=== PATIENT | female | born 1935 | race Caucasian/White ===

== ENCOUNTER 2021-03-12 11:05 | Inpatient (IN) | payer MEDICARE, OTHER ==
[~2021-03-12] VITALS: Ht 157.5 cm; Wt 49.9 kg
[2021-03-12] MEDS ORDERED: INSU100V27 SQ (11:26)
[2021-03-12] MEDS ORDERED: LEVE500T9 GT (11:26)
[2021-03-12] MEDS ORDERED: NUT.237L30 GT (11:26)
[2021-03-12] MEDS ORDERED: ACET-868 GT ×2 (11:26)
[2021-03-12] MEDS ORDERED: BRIM5DRO2 EACHEYE (11:26)
[2021-03-12] MEDS ORDERED: MAGN400O6 GT (11:26)
[2021-03-12] MEDS ORDERED: LATA5DRO EACHEYE (11:26)
[2021-03-12] MEDS ORDERED: AMLO-212 GT (11:26)
[2021-03-12] MEDS ORDERED: LACT1CAP72 GT (11:26)
[2021-03-12] MEDS ORDERED: BISA10SU11 RC (11:26)
[2021-03-12] MEDS ORDERED: LEVO75TA7 GT (11:26)
[2021-03-12] MEDS ORDERED: LACO10SO GT (11:26)
[2021-03-12] MEDS ORDERED: IV LR 1000 ML 1,000 ML BAG IV ONE (11:30)
[2021-03-12 11:55] LABS: BILIRUBIN,URINE Negative (NEGATIVE); COLOR,URINE YELLOW (YELLOW); LEUKOCYTE ESTERASE ,URINE Small (NEGATIVE); NITRITE, URINE Positive (NEGATIVE); PROTEIN,URINE Negative (NEGATIVE); UGLUCOSE Negative (NEGATIVE); UROBILINOGEN,URINE 0.2 EU/dL (0.2)
[2021-03-12 11:55] LABS: BASOPHILS # (AUTO) 0.2 K/uL (0.0-0.2); BASOPHILS % (AUTO) 1.2 % (0.0-2.0); EOSINOPHILS % (AUTO) 5.1 % (0.0-6.0); HEMATOCRIT 36 % (33-45); HEMOGLOBIN 11.2 g/dL (11.5-14.8); LYMPHOCYTES # (AUTO) 5.8 K/uL (0.8-4.8); LYMPHOCYTES % (AUTO) 43.6 % (20.0-44.0); MEAN CORPUSCULAR HGB CONC 31 g/dl (31.0-36.0); MEAN CORPUSCULAR VOLUME 84 fL (82-100); MONOCYTES # (AUTO) 1.1 K/uL (0.1-1.30); MONOCYTES % (AUTO) 8.3 % (2.0-12.0); NEUTROPHILS # (AUTO) 5.6 K/uL (1.8-8.9); NEUTROPHILS % (AUTO) 41.8 % (43.0-81.0); PLATELET COUNT (AUTO) 847 K/uL (150-450); RED BLOOD CELL COUNT(AUTO) 4.32 MIL/uL (4.0-5.2); WHITE BLOOD COUNT (AUTO) 13.4 K/uL (4.3-11.0)
--- NOTE | 2021-03-12 11:56 | NUR ---
86 years old female presents to er by ambulance altered, hypotensive, placed on laboratory monitor, continuous pulse, 2 liters oxygen vnc, ivf infusing for hypotension, ekg complted, lab drawn result pending, chest x-ray done.
[2021-03-12 12:03] LABS: CALCIUM, SERUM 8.8 mg/dL (8.5-10.1); CARBON DIOXIDE 31 mmol/L (21-32); CHLORIDE 101 mmol/L (98-107); CREATININE 0.6 mg/dL (0.6-1.3); GLUCOSE 154 mg/dL (74-106); POTASSIUM 5.1 mmol/L (3.5-5.1); SODIUM SERUM 138 mmol/L (136-145); UREA NITROGEN, BLOOD 23 mg/dL (7-18)
[2021-03-12 12:16] LABS: ALANINE AMINOTRANSFERASE 23 U/L (12-78); ALBUMIN 2.7 g/dL (3.4-5.0); ALKALINE PHOSPHATASE 67 U/L (46-116); ASPARTATE AMINOTRANSFERASE 29 U/L (15-37); BILIRUBIN,DIRECT 0.1 mg/dL (0.0-0.2); BILIRUBIN,TOTAL 0.2 mg/dL (0.2-1.0)
[2021-03-12 12:33] LABS: BACTERIA,URINE Many /HPF (None Seen); RBC,URINE 0-2 /HPF (0-2); SQUAMOUS EPITHELIAL CELL,UR Few /HPF (None Seen)
--- NOTE | 2021-03-12 12:42 | NUR ---
[facility] PAGED. AWAITING HOSPITALIST CALL BACK.
--- NOTE | 2021-03-12 12:45 | NUR ---
CALLED NURSING SUPP FOR TELE BED.
--- NOTE | 2021-03-12 12:56 | NUR ---
swab collected for henderson virus and send to lab.
[2021-03-12] MEDS ORDERED: CEFTRIAXONE 1 G VIAL ONE (12:58)
[2021-03-12] MEDS ORDERED: IV NS 0.9% 500 ML BAG IV ONE (13:00)
[2021-03-12] MEDS ORDERED: CEFTRIAXONE 1GM BAG (ER ONLY) 1 GM/50 ML PIGGYBACK IV ONE (13:00)
--- NOTE | 2021-03-12 13:08 | NUR ---
ADMISSION PACKET SUBMITTED.
--- NOTE | 2021-03-12 13:22 | NUR ---
MD TO MD IN PROGRESS.
[2021-03-12] MEDS ORDERED: ACETAMINOPHEN 325 MG TABLET PO PRN ×2 (13:30)
[2021-03-12] MEDS ORDERED: MAG HYDROX/AL HYDROX/SIMETH 30 ML UDC PO PRN (13:30)
[2021-03-12] MEDS ORDERED: Z GUARD REMEDY 2 OZ OINT TP PRN (13:30)
[2021-03-12] MEDS ORDERED: BISACODYL SUPP (10 MG) 10 MG/SUPP.RECT SUPP.RECT RC PRN (13:30)
[2021-03-12] MEDS ORDERED: MAGNESIUM HYDROXIDE 30 ML UDC GT PRN (13:30)
[2021-03-12] MEDS ORDERED: ONDANSETRON HCL/PF 4 MG/2 ML VIAL IVP PRN (13:30)
[2021-03-12] MEDS ORDERED: MAGNESIUM HYDROXIDE 30 ML UDC PO PRN (13:30)
--- NOTE | 2021-03-12 13:50 | NUR ---
MRSA swab done, patient stable for transfer to unit room 101 report given to nurse Patricia all questions answered.
[2021-03-12 14:16] LABS: THYROID STIMULATING HORMONE 3.516 uIU/mL (0.358-3.74)
[2021-03-12 14:29] LABS: BAND % (MANUAL) 4 % (0.0-5.0); EOSINOPHILS % (MANUAL) 2 % (0-4); LYMPHOCYTES % (MANUAL) 34 % (16-48); MONOCYTES % (MANUAL) 18 % (0-11.0); NEUTROPHILS % (MANUAL) 42 (42-76)
[2021-03-12 14:43] VITALS: BP 129/76
--- NOTE | 2021-03-12 14:50 | NUR ---
FIELD ORGANIZER NOTE RECEIVED PATIENT FROM WE WITH DX UTI WITH METABOLIC ENCEPHALOPATHY,0N2L NC NO SOB NOTED AT THIS TIME, VERY CONFUSION , RT FA AND LT HAND HL INTACT , ,PLACED ON TELE MONITOR , SR HT 75, BED IN LOWEST AND LOCKED POSITION BELONGING CHECKED , VS TAKEN , WILL CONT TO MONITOR, ADMITTED UNDER CARE DR GONZALEZ
[2021-03-12 16:00] VITALS: BP 130/72
[2021-03-12] MEDS: IV NS 0.9% 1,000 ML IV PRN (16:00)
[2021-03-12] MEDS: LACTOBACILLUS RHAMNOSUS GG 1 EACH CAP.SPRINK GT SCH (16:21)
[2021-03-12] MEDS: TIMOLOL 0.5% SOLN OPHTH 5 ML BOTTLE EACHEYE SCH (16:21)
[2021-03-12] MEDS: BRIMONIDINE TARTRATE OPHT SOLN 5 ML BOTTLE EACHEYE SCH (16:21)
[2021-03-12] MEDS: LEVETIRACETAM SOL (5 ML) 100 MG/ML UDC GT SCH (16:21)
[2021-03-12] MEDS ORDERED: GLUCERNA 1.5 1,000 ML BOTTLE NG PRN (16:30)
[2021-03-12] MEDS ORDERED: GLUCERNA 1.2 1,000 ML BOTTLE NG PRN (17:00)
--- NOTE | 2021-03-12 17:30 | NUR ---
RUG CLEANING SUPERVISOR NOTE DR MARY NEUROLOGIST SEEN ,PATENT WITH ORDER EGG AND MRI , ORDER CARRIED OUT
--- NOTE | 2021-03-12 18:05 | NUR ---
APARTMENT MAINTENANCE NOTE EGG DONE ORDERED CALLED DAUGHTER FOR CONSENT MRI
--- NOTE | 2021-03-12 18:30 | NUR ---
AUTOMATION CONTROL INTEGRATOR NOTE ALL NEEDS ATTENDED, WITH G TUBE FEEDING ORDERED , ON IVF ORDERED, ALSO CALLED TO DAUGHTER MRI CONSENT OBTAINED , CALLLI LIGHT WITHIN REACH , WILL MONITOR CLOSELY
[2021-03-12 20:00] VITALS: BP 151/78
[2021-03-12] MEDS ORDERED: LACOSAMIDE 50 MG TABLET ONE (20:48)
[2021-03-12] MEDS: LACOSAMIDE ORAL SOLN 50 MG/5 ML UDC GT SCH (20:57)
[2021-03-12] MEDS: LATANOPROST EYE DROP 0.005% 2.5 ML BOTTLE EACHEYE SCH (21:01)
[2021-03-13] MEDS ORDERED: LACOSAMIDE 50 MG TABLET GT ONE
[2021-03-13 04:00] VITALS: BP 143/83
[2021-03-13] MEDS: IV NS 0.9% 1,000 ML IV PRN (07:22)
[2021-03-13] MEDS: LACTOBACILLUS RHAMNOSUS GG 1 EACH CAP.SPRINK GT SCH ×2 (08:46→18:02)
[2021-03-13] MEDS: PANTOPRAZOLE 40 MG VIAL IV SCH (08:46)
[2021-03-13] MEDS: BRIMONIDINE TARTRATE OPHT SOLN 5 ML BOTTLE EACHEYE SCH ×2 (08:47→18:04)
[2021-03-13] MEDS: LEVOTHYROXINE SODIUM 75 MCG TABLET GT SCH (08:47)
[2021-03-13] MEDS: TIMOLOL 0.5% SOLN OPHTH 5 ML BOTTLE EACHEYE SCH ×2 (08:47→18:04)
[2021-03-13] MEDS: LEVETIRACETAM SOL (5 ML) 100 MG/ML UDC GT SCH ×2 (08:48→18:02)
[2021-03-13] MEDS: ACETAMINOPHEN 325 MG TABLET PO SCH (09:00)
[2021-03-13] MEDS: LACOSAMIDE ORAL SOLN 50 MG/5 ML UDC GT SCH ×2 (10:39→20:48)
[2021-03-13] MEDS ORDERED: GLUCERNA 1.2 1,000 ML BOTTLE NG SCH (11:00)
--- NOTE | 2021-03-13 13:00 | NUR ---
RN NOTES, DERDERIAN AWARE THAT PT HAS PUTNAM CATH IN INSTEAD OF GT, ASKED IF HE WANTS KUB OR STOP THE FEEDING, AND HE REPLIED WITH ORDER TO CONTINUE THE FEEDING AND DO NOT DO KUB, AND PLACE GI CONSULT WITH DR JALLOH, ORDER NOTED AND CARRIED OUT.
--- NOTE | 2021-03-13 13:30 | NUR ---
RN NOTES, PATIENT TAKEN FOR MRI AT THIS TIME.
--- NOTE | 2021-03-13 14:40 | NUR ---
RN NOTES, PATIENT RETURNED FROM MRI AT THIS TIME IN STABLE CONDITION.
[2021-03-13 16:32] VITALS: BP 146/75
[2021-03-13 17:06] LABS: BASOPHILS # (AUTO) 0.2 K/uL (0.0-0.2); BASOPHILS % (AUTO) 1.1 % (0.0-2.0); EOSINOPHILS % (AUTO) 3.3 % (0.0-6.0); HEMATOCRIT 35 % (33-45); LYMPHOCYTES # (AUTO) 7.4 K/uL (0.8-4.8); LYMPHOCYTES % (AUTO) 49.7 % (20.0-44.0); MEAN CORPUSCULAR HGB CONC 31 g/dl (31.0-36.0); MEAN CORPUSCULAR VOLUME 85 fL (82-100); MONOCYTES # (AUTO) 1.2 K/uL (0.1-1.30); MONOCYTES % (AUTO) 7.8 % (2.0-12.0); NEUTROPHILS # (AUTO) 5.7 K/uL (1.8-8.9); NEUTROPHILS % (AUTO) 38.1 % (43.0-81.0); PLATELET COUNT (AUTO) 845 K/uL (150-450); RED BLOOD CELL COUNT(AUTO) 4.15 MIL/uL (4.0-5.2)
[2021-03-13 17:47] LABS: CHOLESTEROL 146 mg/dL (<200); HDL CHOLESTEROL 50 mg/dL (40-60); LDL 79 mg/dL (0-99); TRIGLYCERIDES 166 mg/dL (30-150)
--- NOTE | 2021-03-13 18:24 | NUR ---
RN NOTES, PATIENT NOTED MULTIPLE TIMES ATTEMPTING TO GET OUT FROM THE BED, ALMOST HAD A FALL PULLING TUBINGS IV, AND O2 TUBING, REDIRECTION PROVIDED, KEPT HER DRY AND CLEAN, DECREASED STIMULI, WITHOUT RESULT, MD REPLIED WITH ORDERS BRENDA BILATERAL RESTRAINS, ORDER NOTED AND CARRIES OUT, OTHERWISE NO CHANGE IN CONDITION, MORE AWAKE THAN YESTERDAY, NO LETHARGY NOTED, GI CONSULT WITH DR SHUBHAM Chirinos TO F/U, PER DAUGHTER BING ASK TO CALL HER AFTER CONSULT, SHE IS VERY CONCERN AND WANTS HER MOM TO BE SAFE IF DR MONTGOMERY CAN DO THE PROCEDURE.
--- NOTE | 2021-03-13 19:30 | NUR ---
RN NOTE PT RECEIVED IN BED. CURRENTLY ON 2L OF O2 VIA NC SHOWING NO S/S OF RESP DISTRESS. PT IS A/OX1. PT ON TELE MONITOR SHOWING NSR. GLUCERNA 1.2 RUNNING. IV LINE ON RIGHT FA GAUGE 20 NOTED. LINE FLUSHED, PATENT, AND INTACT WITH NO S/S OF INFILTRATION. ALL SAFETY MEASURES IMPLEMENTED. CALL LIGHT WITHIN REACH. BED ALARM ON. BED LOCKED AND IN LOWEST POSITION. WILL CONTINUE TO MONITOR AND ASSESS FOR ANY CHANGES.
[2021-03-13 20:00] VITALS: BP 127/82
[2021-03-13 20:17] LABS: ALANINE AMINOTRANSFERASE 26 U/L (12-78); ALBUMIN 2.9 g/dL (3.4-5.0); ALKALINE PHOSPHATASE 71 U/L (46-116); ASPARTATE AMINOTRANSFERASE 41 U/L (15-37); BILIRUBIN,TOTAL 0.1 mg/dL (0.2-1.0); CALCIUM, SERUM 9.1 mg/dL (8.5-10.1); CARBON DIOXIDE 24 mmol/L (21-32); CHLORIDE 104 mmol/L (98-107); CREATININE 0.5 mg/dL (0.6-1.3); GLUCOSE 126 mg/dL (74-106); PHOSPHORUS 3.7 mg/dL (2.5-4.9); POTASSIUM 4.4 mmol/L (3.5-5.1); SODIUM SERUM 141 mmol/L (136-145); TOTAL PROTEIN, SERUM 7.6 g/dL (6.4-8.2); UREA NITROGEN, BLOOD 14 mg/dL (7-18)
[2021-03-13] MEDS: LATANOPROST EYE DROP 0.005% 2.5 ML BOTTLE EACHEYE SCH (21:14)
[2021-03-13] MEDS ORDERED: DOXYCYCLINE HYCLATE (100 MG) 100 MG TABLET PO SCH (21:30)
[2021-03-13] MEDS ORDERED: MUPIROCIN OINT 2% 22 GM TUBE ONE (22:04)
[2021-03-13] MEDS ORDERED: CEFTRIAXONE 1 G VIAL ONE (22:25)
[2021-03-13] MEDS: DOXYCYCLINE HYCLATE (100 MG) 100 MG TABLET GT SCH (22:26)
[2021-03-13] MEDS: MUPIROCIN OINT 2% 22 GM TUBE NS SCH (22:27)
[2021-03-13] MEDS: CEFTRIAXONE 1 G in IV D5W 50 ML IV SCH (22:27)
[2021-03-14] VITALS: BP 154/77
[2021-03-14 04:00] VITALS: BP 146/70
[2021-03-14] MEDS: IV NS 0.9% 1,000 ML IV PRN ×2 (04:46→16:33)
--- NOTE | 2021-03-14 06:51 | NUR ---
RN NOTE NO CHANGES IN PT CONDITION DURING SHIFT. CURRENTLY ON 2L OF O2 VIA NC SHOWING NO S/S OF RESP DISTRESS. PT IS A/OX1. PT ON TELE MONITOR SHOWING NSR. IV LINE ON RIGHT FA #20 NOTED. LINE FLUSHED, PATENT, AND INTACT WITH NO S/S OF INFILTRATION. ALL DUE MEDS GIVEN ORDERED. PT KEPT CLEAN AND COMFORTABLE. ALL SAFETY MEASURES IMPLEMENTED. CALL LIGHT WITHIN REACH. BED ALARM ON. BED LOCKED AND IN LOWEST POSITION. WILL ENDORSE TO MORNING SHIFT RN FOR АЛЕКСАНДР.
--- NOTE | 2021-03-14 07:35 | NUR ---
REGIONAL TANKER TRUCK DRIVER NOTE PATIENT IN BED ,ALERT AWAKE WITH CONFUSION, ON 2L NC NO SOB AT THIS TIME,ON TELE MONITOR SR HR88 AT THIS TIME , WITH G TUBE FEEDING ORDERED AT 25 MLPER HOUR KEEP HOB ELEVATED AT ALL TIME, RT FA HL INTACT ,ON IVF ORDERED, BED IN LOWEST AND LOCKED POSITION, WILL CONT TO MONITOR CLOSELY
[2021-03-14 08:00] VITALS: BP 133/64
[2021-03-14] MEDS: LEVOTHYROXINE SODIUM 75 MCG TABLET GT SCH (08:14)
[2021-03-14] MEDS: PANTOPRAZOLE 40 MG VIAL IV SCH (08:14)
[2021-03-14] MEDS: MUPIROCIN OINT 2% 22 GM TUBE NS SCH ×2 (08:15→20:25)
[2021-03-14] MEDS: ACETAMINOPHEN 325 MG TABLET PO SCH (08:15)
[2021-03-14] MEDS: LEVETIRACETAM SOL (5 ML) 100 MG/ML UDC GT SCH ×2 (08:15→20:11)
[2021-03-14] MEDS: LACTOBACILLUS RHAMNOSUS GG 1 EACH CAP.SPRINK GT SCH ×2 (08:15→16:18)
[2021-03-14] MEDS: DOXYCYCLINE HYCLATE (100 MG) 100 MG TABLET GT SCH ×2 (08:16→20:10)
[2021-03-14] MEDS: LACOSAMIDE ORAL SOLN 50 MG/5 ML UDC GT SCH ×2 (08:36→20:11)
[2021-03-14] MEDS: TIMOLOL 0.5% SOLN OPHTH 5 ML BOTTLE EACHEYE SCH ×2 (09:50→16:19)
[2021-03-14] MEDS: PANTOPRAZOLE 40 MG/PACK PACK GT SCH (09:51)
[2021-03-14] MEDS: BRIMONIDINE TARTRATE OPHT SOLN 5 ML BOTTLE EACHEYE SCH ×2 (09:51→16:19)
--- NOTE | 2021-03-14 11:11 | NUR ---
PRODUCTION LEADER NOTE DR GONZALEZ AT BEDSIDE AWARE OF PUTNAM CATH G TUBE SITE OK TO CHANGE ALSO OK TO HAVE GI CONSULT, WILL CALL DAUGHTER BING
--- NOTE | 2021-03-14 11:30 | NUR ---
COAT JOINER NOTE PUTNAM CATH CHANGED FOR G TUBE SITE PER ORDER DR GONZALEZ ,WILL AWAIT FOR KUB FOR CONFIRMATION OF PLACEMENT , WILL F\U
[2021-03-14] MEDS ORDERED: DIATR MEGLU/DIATRIZOATE SODIUM 30 ML BOTTLE (GASTROGRAPHIN) ONE (11:36)
--- NOTE | 2021-03-14 11:45 | NUR ---
MEDICINE TECH NOTE SPOKE WITH HARO STATED THAT WILL COME TO SEE PATIENT SOON
--- NOTE | 2021-03-14 11:56 | NUR ---
SHADE CLOTH FINISHER NOTE KUB DONE TO VERIFY PUTNAM G TUBE PLACEMENTS WILL F\U
[2021-03-14 12:00] VITALS: BP 118/72
--- NOTE | 2021-03-14 12:59 | NUR ---
STOCK REPAIRER NOTE CALLED TO [facility] RADIOLOGIST SPOKE WITH DR JEFF TO START G TUBE FEEDING D
--- NOTE | 2021-03-14 15:47 | NUR ---
telegraph and teletype operator note make bm x2, keep clean dry , all needs attended
[2021-03-14 16:01] VITALS: BP 167/79
--- NOTE | 2021-03-14 17:42 | NUR ---
TRAFFIC SIGN ERECTION SUPERVISOR NOTE FACE TO FACE ASSESSMENT DONE , PATIENT STILL NEED SOFT RESTRAIN TRYING TO REMOVE ALL LINES , DR GONZALEZ WAS AT BEDSIDE EARLIER AWARE OF PATEIN CONDITION , OK TO RENEW SOFT RESTRAIN , CHECK FOR CIRCULATION Q2 HOUR , SKIN WARM AND DRY , STILL UNABLE TO REMOVE SOFT RESTRAIN, PATIENT VERY CONFUSED ,AT RISK TO REMOVE ALL LINES
--- NOTE | 2021-03-14 18:22 | NUR ---
POWER REACTOR OPERATOR NOTE PATIENT IN BED ,ALL NEEDS ATTENDED ,ON TELE MONITOR SR, STILL ALERT WITH CONFUSION, ON F\C \ G TUBE FEEDING ORDERED AT 35 ML AT THIS TIME , KEEP HOB ELEVATED, STILL AWAITING FOR DR PEREZ GI DOCTOR, ON IVF ORDERED , STILL WITH SOFT RESTRAIN A , BED IN LOWEST AND LOCKED POSITION , NO SOB NOTED AT THIS TIME ,ON 2 L NC , WILL CON TO MONITOR CLOSELY
--- NOTE | 2021-03-14 19:40 | NUR ---
TRAFFIC RATE COMPUTER OPENING NOTES Patient is A&Ox1, not talkative at this time but eyes open spontaneously. Currently fidgeting with bed linens and trying to pull at things. Is on restraints due to pulling out lines/risk for injury. G-tube feeding infusing via boateng catheter in abdomen- patent and flushed. In place per Abd XRay and 2 checks prior to flushing. Pending GI consult for permanent G-tube placement. IV to RFA flushed and patent currently infusing NS at 75cc/hr. NSR on monitor.
[2021-03-14 20:00] VITALS: BP 156/76
[2021-03-14] MEDS: LATANOPROST EYE DROP 0.005% 2.5 ML BOTTLE EACHEYE SCH (22:24)
[2021-03-14] MEDS: CEFTRIAXONE 1 G in IV D5W 50 ML IV SCH (22:25)
[2021-03-15] VITALS: BP 165/85
[2021-03-15 04:00] VITALS: BP 148/71
--- NOTE | 2021-03-15 06:58 | NUR ---
CLEANER ASSISTANT CLOSING NOTES Patient has been A&Ox1. restless and trying to pull at items on bed, fidgeting with bed sheets. On soft wrist restraints. checked q15min for safety. released and sites checked Q2H for ROM. Skin intact. Glucerna with no residual at 0400 so changed to 40cc/hr -tolerating well 50cc is goal. HOB >30 at all times for aspiration precautions. No signs of distress. Tolerating treatment well. All safety measures in place.
[2021-03-15 08:00] VITALS: BP 168/90
[2021-03-15] MEDS: ACETAMINOPHEN 325 MG TABLET PO SCH (08:38)
[2021-03-15] MEDS: LEVETIRACETAM SOL (5 ML) 100 MG/ML UDC GT SCH ×2 (08:38→21:13)
[2021-03-15] MEDS: LACTOBACILLUS RHAMNOSUS GG 1 EACH CAP.SPRINK GT SCH ×2 (08:38→18:11)
[2021-03-15] MEDS: PANTOPRAZOLE 40 MG/PACK PACK GT SCH (08:38)
[2021-03-15] MEDS: LEVOTHYROXINE SODIUM 75 MCG TABLET GT SCH (08:38)
[2021-03-15] MEDS: DOXYCYCLINE HYCLATE (100 MG) 100 MG TABLET GT SCH ×2 (08:38→21:13)
[2021-03-15] MEDS: LACOSAMIDE ORAL SOLN 50 MG/5 ML UDC GT SCH (08:39)
[2021-03-15] MEDS: MUPIROCIN OINT 2% 22 GM TUBE NS SCH ×2 (08:40→21:14)
[2021-03-15] MEDS: BRIMONIDINE TARTRATE OPHT SOLN 5 ML BOTTLE EACHEYE SCH ×2 (08:51→18:12)
[2021-03-15] MEDS: TIMOLOL 0.5% SOLN OPHTH 5 ML BOTTLE EACHEYE SCH ×2 (08:51→18:11)
[2021-03-15 09:09] LABS: BASOPHILS # (AUTO) 0.1 K/uL (0.0-0.2); BASOPHILS % (AUTO) 1.1 % (0.0-2.0); EOSINOPHILS % (AUTO) 5.7 % (0.0-6.0); HEMATOCRIT 36 % (33-45); HEMOGLOBIN 11.1 g/dL (11.5-14.8); LYMPHOCYTES # (AUTO) 4.9 K/uL (0.8-4.8); LYMPHOCYTES % (AUTO) 47.1 % (20.0-44.0); MEAN CORPUSCULAR HGB CONC 31 g/dl (31.0-36.0); MEAN CORPUSCULAR VOLUME 83 fL (82-100); NEUTROPHILS # (AUTO) 3.8 K/uL (1.8-8.9); NEUTROPHILS % (AUTO) 36.1 % (43.0-81.0); PLATELET COUNT (AUTO) 742 K/uL (150-450); RED BLOOD CELL COUNT(AUTO) 4.26 MIL/uL (4.0-5.2); WHITE BLOOD COUNT (AUTO) 10.5 K/uL (4.3-11.0)
[2021-03-15] MEDS: AMOX/CLAVULANATE 875 MG TABLET PO SCH ×2 (11:08→21:13)
[2021-03-15 12:00] VITALS: BP 134/71
--- NOTE | 2021-03-15 13:07 | NUR ---
VOCREMY, PATIENTS' DAUGHTER CALLED ASKING NURSE TO GIVE DR SANTOS PHONE NUMBER [phone] JORGE MADE AWARE AND RECOMMENDED TO GIVE HIS NUMBER [phone] PATIENTS' DAUGHTER TO GIVE TO NEFTALI. ORDERS FOLLOWED AND EPIC NUMBER GIVEN TO DAUGHTER. WILL CONTINUE WITH PLAN OF CARE
--- NOTE | 2021-03-15 14:24 | NUR ---
received orders from dr Wang to print out all medical reports and images. orders carried out. will continue with plan of care
[2021-03-15 16:00] VITALS: BP 156/72
[2021-03-15] MEDS ORDERED: LACOSAMIDE ORAL SOLN 50 MG/5 ML UDC GT SCH (18:00)
--- NOTE | 2021-03-15 19:30 | NUR ---
RN OPENING NOTE PATIENT IN BED, AWAKE. PATIENT A/O X 1. PATIENT'S BREATHING EVEN AND UNLABORED, ON 2 L OF OXYGEN SUPPLEMENTATION. PUTNAM/GTUBE IN PLACE: HAS GLUCERNA 1.2 @40 ML/HR. PATIENT HAS A LFA 22 G WITH NS @75 CC/HR RUNNING. PATIENT IS FOR C/C, AWAITING TRANSPORTATION. SAFETY MEASURES IN PLACE: BED LOCKED AND IN LOWEST POSITION, CALL LIGHT WITHIN REACH, SIDE RAILS UP. WILL MONITOR PATIENT CLOSELY.
--- NOTE | 2021-03-15 19:44 | NUR ---
END OF SHIFT REPORT PATIENT AWAKE IN BED AT THIS TIME. PATIENT REMAINED STABLE THROUGH OUT SHIFT. ALL CARE MEDICATIONS AND TREATMENT ADMINISTERED ANTICIPATED PER ORDER. PUTNAM CATHETER G-TUBE INTACT, CLEAN AND DRY WITH NO RESIDUAL NOTED. IV ACCESS, INTACT, PATENT AND FLUSHING WELL. PATIENT [facility] ALL DISCHARGE INSTRUCTIONS PROVIDED AND PICTURES TAKEN. REPORT GIVEN TO YUKO FRANCO AT [facility]. ASPIRATION AND SAFETY PRECAUTIONS IN PLACE AND MAINTAINED AT ALL TIMES. BED IN LOWEST LOCKED POSITION, SIDE RAILS UPX2, HOB ELEVATED, CALL LIGHT AND TABLE WITHIN REACH. ENDORSED TO YUKO PRINGLE FOR АЛЕКСАНДР
[2021-03-15 20:00] VITALS: BP 137/76
--- NOTE | 2021-03-15 21:20 | NUR ---
RN NOTE PATIENT PICKED UP BY EMS. PATIENT IS GOING TO [facility]. PATIENT BP NOW 156/74. PREVIOUSLY 168/82. PATIENT STABLE AT THIS TIME.2100 MEDS GIVEN. REMAINED A/O X 1. IV ACCESS TAKEN OUT. GTUBE/PUTNAM FLUSHING WELL. EXIT CARE PROVIDED, ALL DOCUMENTS SIGNED.
[2021-03-16] MEDS ORDERED: LACOSAMIDE ORAL SOLN 50 MG/5 ML UDC GT SCH (09:00)
== END 2021-03-15 21:20 | DRG 871 ==
LOC: ER 11:12 → TELE1 13:42 → UNDODISIN 03-13 13:35
PROVIDERS: ADMIT Internal Medicine; ATTEND Internal Medicine
DX: A41.9 Sepsis, unspecified organism (principal); G93.41 Metabolic encephalopathy; N39.0 Urinary tract infection, site not specified; I10 Essential (primary) hypertension; F03.90 Unspecified dementia, unspecified severity, without behavioral disturbance, psychotic disturbance, mood disturbance, and anxiety; E11.9 Type 2 diabetes mellitus without complications; D63.8 Anemia in other chronic diseases classified elsewhere; I25.10 Atherosclerotic heart disease of native coronary artery without angina pectoris; R13.10 Dysphagia, unspecified; Z85.028 Personal history of other malignant neoplasm of stomach; B95.2 Enterococcus as the cause of diseases classified elsewhere; Z20.822 Contact with and (suspected) exposure to COVID-19; Z79.4 Long term (current) use of insulin; Z93.1 Gastrostomy status; Z87.820 Personal history of traumatic brain injury; D32.9 Benign neoplasm of meninges, unspecified; Z22.322 Carrier or suspected carrier of Methicillin resistant Staphylococcus aureus; B96.1 Klebsiella pneumoniae [K. pneumoniae] as the cause of diseases classified elsewhere
CPT/HCPCS: 36415; 70450-TC; 70551-TC; 71045-TC; 74018; 80048-TC; 80053-TC; 80061-TC; 80076-TC; 81001; 82140-TC; 83605-TC; 83735-TC; 83880; 84100-TC; 84443-TC; 84484-TC; 85025-TC; 85730-TC; 86850-TC; 87040-TC; 87081-TC; 87086-TC; 87186-TC; 95819-TC; C9113; G0378; J0696; J1953; J7030; J7060; J7120; Q9963; U0003

== ENCOUNTER 2022-04-02 01:32 | Inpatient (IN) | payer MEDICARE, OTHER ==
[~2022-04-02] VITALS: Ht 160 cm; Wt 49.9 kg
[~2022-04-02 01:32] MED LIST: ACET-868 JT; AMLO-212 JT; BISA10SU11 RC; BRIM5DRO2 EACHEYE; INSU100V27 SQ; LACT1CAP72 JT; LATA5DRO EACHEYE; LEVE500T9 GT; LEVO75TA7 GT; MAGN400O6 JT; NUT.237L30 GT
[2022-04-02] MEDS ORDERED: CEFTRIAXONE 1GM BAG (ER ONLY) 1 GM/50 ML PIGGYBACK IV ONE (02:00)
[2022-04-02] MEDS ORDERED: AZITHROMYCIN 500 MG in IV D5W 250 ML IV ONE (02:00)
--- NOTE | 2022-04-02 02:00 | NUR ---
[facility] & DIAGNOSED WITH PNA YESTERDAY. ARRIVED ON NRB SATTING 91%. PT ALERT X0 AT BASELINE. PLACED ON MOINITOR AND PULSE OX MONITORING.
--- NOTE | 2022-04-02 02:05 | NUR ---
20G IV ESTABLISHED AT . SALINE LOCKED.
[2022-04-02] MEDS ORDERED: CEFTRIAXONE 1 G VIAL ONE (02:08)
--- NOTE | 2022-04-02 02:12 | NUR ---
URINE COLLECTED AND SENT TO LAB
[2022-04-02 02:18] LABS: BASOPHILS % (AUTO) 0.1 % (0.0-2.0); EOSINOPHILS % (AUTO) 0.1 % (0.0-6.0); HEMATOCRIT 34 % (33-45); LYMPHOCYTES # (AUTO) 2.1 K/uL (0.8-4.8); LYMPHOCYTES % (AUTO) 7.5 % (20.0-44.0); MEAN CORPUSCULAR HGB CONC 33 g/dl (31.0-36.0); MEAN CORPUSCULAR VOLUME 93 fL (82-100); NEUTROPHILS # (AUTO) 22.1 K/uL (1.8-8.9); NEUTROPHILS % (AUTO) 81.3 % (43.0-81.0); PLATELET COUNT (AUTO) 674 K/uL (150-450); RED BLOOD CELL COUNT(AUTO) 3.65 MIL/uL (4.0-5.2); WHITE BLOOD COUNT (AUTO) 27.2 K/uL (4.3-11.0)
[2022-04-02 02:31] LABS: CALCIUM, SERUM 8.9 mg/dL (8.5-10.1); CARBON DIOXIDE 33 mmol/L (21-32); CHLORIDE 93 mmol/L (98-107); CREATININE 0.9 mg/dL (0.6-1.3); GLUCOSE 224 mg/dL (74-106); POTASSIUM 4.4 mmol/L (3.5-5.1); SODIUM SERUM 131 mmol/L (136-145); UREA NITROGEN, BLOOD 36 mg/dL (7-18)
--- NOTE | 2022-04-02 02:36 | NUR ---
CLAY COLLECTED AND SENT TO LAB
--- NOTE | 2022-04-02 02:41 | NUR ---
LACTIC ACID 3.1
[2022-04-02 02:43] LABS: ALANINE AMINOTRANSFERASE 14 U/L (12-78); ALBUMIN 1.9 g/dL (3.4-5.0); ALKALINE PHOSPHATASE 61 U/L (46-116); ASPARTATE AMINOTRANSFERASE 27 U/L (15-37); BILIRUBIN,DIRECT 0.2 mg/dL (0.0-0.2); BILIRUBIN,TOTAL 0.3 mg/dL (0.2-1.0); TOTAL PROTEIN, SERUM 7.4 g/dL (6.4-8.2)
[2022-04-02] MEDS ORDERED: AZITHROMYCIN 500 MG VIAL ONE (03:04)
[2022-04-02 03:22] LABS: BILIRUBIN,URINE NEGATIVE (NEGATIVE); COLOR,URINE YELLOW (YELLOW); LEUKOCYTE ESTERASE ,URINE MODERATE (NEGATIVE); NITRITE, URINE NEGATIVE (NEGATIVE); PROTEIN,URINE 30 mg/dl (NEGATIVE); UGLUCOSE 250 MG/DL mg/dL (NEGATIVE)
[2022-04-02] MEDS ORDERED: DEXTROSE 50%-WATER 50 ML DISP.SYRIN IV PRN ×2 (05:00→12:30)
[2022-04-02] MEDS ORDERED: CEFEPIME 1 GM in IV D5W 50 ML IV SCH (05:00)
[2022-04-02] MEDS ORDERED: INSULIN REGULAR, HUMAN 100 UNIT/ML 3 ML VIAL SQ PRN (05:00)
[2022-04-02] MEDS ORDERED: ONDANSETRON HCL/PF 4 MG/2 ML VIAL IVP PRN (05:00)
[2022-04-02] MEDS ORDERED: ZOLPIDEM TARTRATE 5 MG TABLET GT PRN (05:00)
[2022-04-02] MEDS ORDERED: BISACODYL SUPP (10 MG) 10 MG/SUPP.RECT SUPP.RECT RC PRN (05:00)
[2022-04-02] MEDS ORDERED: Z GUARD REMEDY 4 OZ OINT TP PRN (05:00)
[2022-04-02] MEDS ORDERED: MAG HYDROX/AL HYDROX/SIMETH 30 ML UDC GT PRN (05:00)
[2022-04-02] MEDS ORDERED: MAGNESIUM HYDROXIDE 30 ML UDC GT PRN ×2 (05:00)
--- NOTE | 2022-04-02 05:22 | NUR ---
CALLED FOR REPORT RN WILL RETURN CALL
[2022-04-02 05:39] LABS: ABG PCO2 40.3 mmHg (35.0-45.0); ABG PO2 88.8 mmHg (75.0-100.0); COHb 0.3 % (0.5-1.5); MetHb 0.1 % (0.0-1.5); O2Hb 96.5 % (94.0-97.0); SITE, ABG Right Radial; VENT MODE, BG 15 NRB
--- NOTE | 2022-04-02 05:47 | NUR ---
CALLED FOR REPORT. RN WILL CALL BACK
--- NOTE | 2022-04-02 05:56 | NUR ---
CRTICAL LAB: LACTIC ACID 4.4
[2022-04-02 05:57] LABS: THYROID STIMULATING HORMONE 4.617 uIU/mL (0.358-3.74)
[2022-04-02] MEDS ORDERED: ENOXAPARIN SODIUM 40 MG/0.4 ML DISP.SYRIN SQ ONE (05:59)
[2022-04-02] MEDS ORDERED: CEFEPIME 1 GM VIAL ONE (05:59)
[2022-04-02] MEDS: ENOXAPARIN SODIUM 40 MG/0.4 ML DISP.SYRIN SQ SCH (06:05)
--- NOTE | 2022-04-02 06:22 | NUR ---
REPORT GIVEN TO SENG
[2022-04-02 06:35] VITALS: BP 111/64
--- NOTE | 2022-04-02 06:35 | NUR ---
PATIENT WITH GT IN PLACED AND REDNESS NOTED AT SITE.
--- NOTE | 2022-04-02 06:35 | NUR ---
ADMISSION NOTES, RECEIVED 87 YO FEMALE ADMITTED FROM ER DEPARTMENT VIA [facility], RECEIVED PATIENT IN NRM AT 15LPM WITH O2 SATURATION 92%, UNDER MEDICAL SERVICES OF [facility] ENVIRONMENTAL CONSULTANT, WITH ADMITTING DX RESPIRATORY FAILURE/PNA, OPEN EYES TO VERBAL STIMULI, NO SOB/DISTRESS ON NRM, SINUS TACHYCARDIA IN TELE MONITOR WITH HR 110S AT THIS TIME, IV LINE IN RIGHT HAND 20G, PATENT AND INTACT, VS 99%, 111/64, 112, 92%, 24, NOTED SACRAL PRESSURE SORE IN SACRAL AREA AND BILATERAL HEELS REDNESS, PERINEAL REDNESS, AND LEFT LATERAL FOOT REDNESS, ALL SAFETY PRECAUTIONS MAINTAINED, S/R OF BED X2 UP, CALL LIGHT W/ REACH, WILL ENDORSE CONTINUITY OF CARE TO ONCOMING NURSE.
--- NOTE | 2022-04-02 06:36 | NUR ---
PT TRANSPORTED TO ROOM 118-2 ON CARDIAC PER ACLS IN STABLE CONDITION
--- NOTE | 2022-04-02 07:30 | NUR ---
BRADLEY RN NOTE ADMITTED 87 YEARS OLD FEEMALE PT FROM ER WITH THE DX RESP FAILURE, PNA BY ANDREW, PT IS A/O X 0, SLEEPING AROUSABLE TO PAINFUL STIMULATION. NO SOB, NO DISTRESS OR DISCOMFORT NOTED. PT IS NRM 15L O2SAT 97%. PT IS WITH GT SITE IS WITH REDNESS AND ODER. SKIN ASSESSMENT DONE AND PICTURES TAKEN AND PLACED THEM IN THE CHART.. WOUND CONSULT TRIGGERED. RT HAND WITH SL #20 G INTACT AND PATENT,NO S/S OF INFILTRATION NOTED. ALL NEEDS ATTENDED. VSS. CONTINUE TO MONITOR HER.
[2022-04-02 07:41] LABS: BACTERIA,URINE Few /HPF (None Seen); SQUAMOUS EPITHELIAL CELL,UR Few /HPF (None Seen); WBC,URINE 21-50 /HPF (0-3); YEAST,URINE Moderate /HPF (None Seen)
[2022-04-02] MEDS: BLOOD SUGAR DIAGNOSTIC 1 EACH STRIP IN SCH ×5 (07:53→23:59)
[2022-04-02] MEDS: IV NS 0.9% 1,000 ML IV PRN (08:05)
[2022-04-02] MEDS: LEVOTHYROXINE SODIUM 75 MCG TABLET GT SCH (08:27)
[2022-04-02] MEDS ORDERED: CRAN425C6 JT (08:58)
[2022-04-02] MEDS ORDERED: AMIN30LI27 JT (08:58)
[2022-04-02] MEDS ORDERED: LINA5TAB JT (08:58)
[2022-04-02] MEDS ORDERED: DAPA5TAB JT (08:58)
[2022-04-02] MEDS ORDERED: ASCO-352 JT (08:58)
[2022-04-02] MEDS ORDERED: MULT-447 JT (08:58)
[2022-04-02] MEDS ORDERED: OLAN2.5T3 JT (08:58)
[2022-04-02] MEDS ORDERED: HYDR50TA61 JT (08:58)
[2022-04-02] MEDS ORDERED: VALP250S22 JT (08:58)
[2022-04-02] MEDS ORDERED: INSU100V11 SQ (08:58)
[2022-04-02] MEDS: PANTOPRAZOLE 40 MG VIAL IV SCH (11:32)
[2022-04-02] MEDS: AMLODIPINE BESYLATE 5 MG TABLET GT SCH (11:32)
[2022-04-02] MEDS: LACTOBACILLUS RHAMNOSUS GG 1 EACH CAP.SPRINK GT SCH ×2 (11:32→17:57)
[2022-04-02] MEDS: ACETAMINOPHEN 325 MG TABLET PO SCH (11:32)
[2022-04-02] MEDS: LEVETIRACETAM SOL (5 ML) 100 MG/ML UDC GT SCH ×2 (11:33→17:56)
[2022-04-02] MEDS ORDERED: GLUCERNA 1.2 1,000 ML BOTTLE NG PRN ×2 (12:00→19:30)
--- NOTE | 2022-04-02 13:51 | NUR ---
RN NOTE PT SENT FOR HEAD CT W/O CONTRAST. PICKED UP BY KATIE AT 1350.
[2022-04-02] MEDS: ALBUTEROL HALF STRENGTH 1.25 MG/3 ML VIAL.NEB NEB SCH ×2 (14:10→20:04)
[2022-04-02] MEDS: IPRATROPIUM NEB FS 0.5 MG/2.5 ML AMPUL.NEB NEB SCH ×2 (14:10→20:04)
[2022-04-02 14:18] LABS: BAND % (MANUAL) 34 % (0.0-5.0); LYMPHOCYTES % (MANUAL) 7 % (16-48); MONOCYTES % (MANUAL) 20 % (0-11.0); NEUTROPHILS % (MANUAL) 39 (42-76)
--- NOTE | 2022-04-02 16:02 | NUR ---
followup head ct result still pending.
[2022-04-02] MEDS: ASCORBIC ACID 500 MG TABLET GT SCH ×2 (16:44→17:57)
[2022-04-02] MEDS: VALPROIC ACID 250 MG/5 ML UDC JT SCH ×2 (16:44→17:00)
[2022-04-02] MEDS: ACETAMINOPHEN 325 MG TABLET PO PRN (17:34)
[2022-04-02] MEDS: BRIMONIDINE TARTRATE OPHT SOLN 5 ML BOTTLE EACHEYE SCH (17:56)
[2022-04-02] MEDS: TIMOLOL 0.5% SOLN OPHTH 5 ML BOTTLE EACHEYE SCH (17:57)
--- NOTE | 2022-04-02 18:23 | NUR ---
head ct result relayed to chante hernandez no new orders.
--- NOTE | 2022-04-02 19:30 | NUR ---
RN OPENING NOTE RECEIVED REPORT FROM YUKO VALENCIA FOR АЛЕКСАНДР. PT IN BED, SLEEPING. NO S/SX OF ACUTE RESPI DISTRESS NOTED AT THIS TIME. ON SIMPLE MASK AT 8LPM, TOLERATING WELL. NO SOB, BREATHING IS EVEN AND UNLABORED. ON TELE MONITOR SHOWING SR WITH HR IN THE 80s. O2 SAT AT 97%. IV ACCESS NOTED ON R HAND #20g, INTACT, PATENT AND FLUSHES WELL, RUNNING NS @ 75 CC/HR. PT HAS PEG TUBE, NO FEEDING AT THIS TIME. REDNESS ON THE SITE NOTED. ALL SAFETY MEASURES IN PLACE: BED LOCKED IN LOW POSITION, BED ALARM ON, CALL LIGHT WITHIN REACH. WILL CONTINUE TO MONITOR.
[2022-04-02] MEDS: GLUCERNA 1.2 1,000 ML BOTTLE NG PRN (19:58)
[2022-04-02 20:00] VITALS: BP 131/79
[2022-04-02] MEDS: MEROPENEM 1 G in IV NS 0.9% 100 ML IV SCH (20:11)
[2022-04-02] MEDS: LINEZOLID RTU BAG 600 MG in PREMIX 1 EA IV SCH (20:52)
--- NOTE | 2022-04-02 21:11 | NUR ---
BRADLEY RN NOTE PT IN BED A0X0, BREATHING ON 8L SIMPLE MASK, WITH 02 SAT OF 95%. NO S/S OF RESPIRATORY DISTRESS OR SOB. TELE READING SR WITH HR OF 87. IV ACCESS ON RH #20G RUNNING NS AT 75 MLS/HR. GT FEEDING INFUSING WELL,, 0 ML RESIDUAL NOTED. ALL NEEDS ATTENDED.ENDORSE TO PATIENT SUPPORT REPRESENTATIVE NURSE FOR CONTINUE TO CARE.
[2022-04-02] MEDS: LATANOPROST EYE DROP 0.005% 2.5 ML BOTTLE EACHEYE SCH (22:16)
[2022-04-03] VITALS: BP 129/83
[2022-04-03] MEDS: INSULIN REGULAR, HUMAN 100 UNIT/ML 3 ML VIAL SQ PRN ×4 (00:01→23:33)
[2022-04-03] MEDS: BLOOD SUGAR DIAGNOSTIC 1 EACH STRIP IN SCH ×5 (00:34→23:31)
[2022-04-03] MEDS: IV NS 0.9% 1,000 ML IV PRN ×2 (01:09→16:20)
[2022-04-03] MEDS: ALBUTEROL HALF STRENGTH 1.25 MG/3 ML VIAL.NEB NEB SCH ×4 (01:46→19:11)
[2022-04-03] MEDS: IPRATROPIUM NEB FS 0.5 MG/2.5 ML AMPUL.NEB NEB SCH ×4 (01:46→19:11)
[2022-04-03 04:00] VITALS: BP 118/60
--- NOTE | 2022-04-03 05:36 | NUR ---
RN NOTE PT REMAINED STABLE T/O THE NIGHT. ALL VS WNL. NO S/SX OF ACUTE RESPI DISTRESS NOTED. TELE MONITOR READS SR, HR IN 90s. DUE MEDS GIVEN. NEEDS ATTENDED TO. TURNED AND REPOSITIONED. WILL ENDORSE TO [facility] SHIFT NURSE FOR АЛЕКСАНДР.
[2022-04-03] MEDS: LEVOTHYROXINE SODIUM 75 MCG TABLET GT SCH (06:03)
--- NOTE | 2022-04-03 07:12 | NUR ---
TD RN OPENING NOTES: RECEIVED , PT IS A/O X 0, SLEEPING AROUSABLE TO PAINFUL STIMULATION. NO SOB, NO DISTRESS OR DISCOMFORT NOTED. PT IS NRM 15L O2SAT 97%. PT IS WITH GT SITE IS WITH REDNESS AND ODER. NOTED WITH ABDOMINAL BINDER. .. RT HAND WITH SL #20 G INTACT AND PATENT,NO S/S OF INFILTRATION NOTED.ALL SAFETY MEASURES RENDERED, BED IN LOW AND LOCKED POSITION, SIDE RAILS UP, WILL CONTINUE TO MONITOR FOR АЛЕКСАНДР
[2022-04-03 07:22] LABS: BASOPHILS # (AUTO) 0.1 K/uL (0.0-0.2); BASOPHILS % (AUTO) 0.2 % (0.0-2.0); EOSINOPHILS % (AUTO) 0.2 % (0.0-6.0); HEMATOCRIT 36 % (33-45); HEMOGLOBIN 11.4 g/dL (11.5-14.8); LYMPHOCYTES # (AUTO) 4.3 K/uL (0.8-4.8); MEAN CORPUSCULAR HGB CONC 31 g/dl (31.0-36.0); MEAN CORPUSCULAR VOLUME 95 fL (82-100); MONOCYTES # (AUTO) 3.4 K/uL (0.1-1.30); NEUTROPHILS # (AUTO) 34.9 K/uL (1.8-8.9); NEUTROPHILS % (AUTO) 81.6 % (43.0-81.0); PLATELET COUNT (AUTO) 711 K/uL (150-450); RED BLOOD CELL COUNT(AUTO) 3.82 MIL/uL (4.0-5.2)
[2022-04-03 07:44] LABS: WHITE BLOOD COUNT (AUTO) 42.8 K/uL (4.3-11.0)
[2022-04-03 08:00] VITALS: BP 119/71
[2022-04-03 08:03] LABS: CARBON DIOXIDE 31 mmol/L (21-32); CHLORIDE 94 mmol/L (98-107); CREATININE 0.7 mg/dL (0.6-1.3); GLUCOSE 117 mg/dL (74-106); MAGNESIUM 2.3 mg/dL (1.8-2.4); PHOSPHORUS 2.8 mg/dL (2.5-4.9); POTASSIUM 4.7 mmol/L (3.5-5.1); SODIUM SERUM 133 mmol/L (136-145); UREA NITROGEN, BLOOD 31 mg/dL (7-18)
[2022-04-03] MEDS: MEROPENEM 1 G in IV NS 0.9% 100 ML IV SCH ×2 (08:03→20:35)
[2022-04-03] MEDS: VALPROIC ACID 250 MG/5 ML UDC GT SCH ×3 (08:11→16:20)
[2022-04-03] MEDS: ACETAMINOPHEN 325 MG TABLET PO SCH (08:12)
[2022-04-03] MEDS: LACTOBACILLUS RHAMNOSUS GG 1 EACH CAP.SPRINK GT SCH ×2 (08:12→16:20)
[2022-04-03] MEDS: LEVETIRACETAM SOL (5 ML) 100 MG/ML UDC GT SCH ×2 (08:12→16:20)
[2022-04-03] MEDS: PANTOPRAZOLE 40 MG VIAL IV SCH (08:12)
[2022-04-03] MEDS: AMLODIPINE BESYLATE 5 MG TABLET GT SCH (08:12)
[2022-04-03] MEDS: ENOXAPARIN SODIUM 40 MG/0.4 ML DISP.SYRIN SQ SCH (08:14)
--- NOTE | 2022-04-03 08:15 | NUR ---
VELASQUEZ Travis was notified re; WBC went up to 42.8 waiting for returning call back
[2022-04-03] MEDS: PROSOURCE / PROSTAT (PYXIS) 30 ML UDC JT SCH (08:22)
[2022-04-03] MEDS: MULTIVITAMINS,THERAGRAN 1 UDTAB TABLET GT SCH (08:22)
[2022-04-03] MEDS: LINEZOLID RTU BAG 600 MG in PREMIX 1 EA IV SCH ×2 (08:34→21:03)
[2022-04-03] MEDS: TIMOLOL 0.5% SOLN OPHTH 5 ML BOTTLE EACHEYE SCH ×2 (08:36→16:22)
[2022-04-03] MEDS: BRIMONIDINE TARTRATE OPHT SOLN 5 ML BOTTLE EACHEYE SCH ×2 (08:38→16:21)
[2022-04-03] MEDS: PANTOPRAZOLE 40 MG/PACK PACK GT SCH (09:00)
--- NOTE | 2022-04-03 09:17 | NUR ---
RN NOTES: FAMOTIDINE NOT GIVEN VIA GT DOSE WAS GIVEN IV. SPOKE TO EUNICE PHARMACIST MADE AWARE
[2022-04-03 12:00] VITALS: BP 90/48
--- NOTE | 2022-04-03 12:19 | NUR ---
WOUND CARE CONSULT: PT PRESENTS WITH SACRAL DEEP TISSUE INJURY, DEEP TISSUE INJURIES TO LEFT ANKLE AND BILATERAL HEELS WELL REDNESS AROUND G TUBE SITE, ALL PRESENT ON ADMISSION. DR RICARDO AND DR MASCORRO CALLED FOR SURGICAL AND DPM CONSULTS. DISCUSSED SKIN PROTECTION WITH NURSING STAFF. PT IS ON [facility] BED. IN AGREEMENT WITH PLAN OF CARE. Addendum: 04/03/22 at 1221 by FAN CAMACHO WNDNU Amended: Links added.
[2022-04-03] MEDS: MICAFUNGIN SODIUM 100 MG in IV NS 0.9% 100 ML IV SCH (12:30)
[2022-04-03 14:17] LABS: BAND % (MANUAL) 30 % (0.0-5.0); LYMPHOCYTES % (MANUAL) 10 % (16-48); MONOCYTES % (MANUAL) 15 % (0-11.0); NEUTROPHILS % (MANUAL) 45 (42-76)
--- NOTE | 2022-04-03 15:00 | NUR ---
RN NOTES: TITRATED O2 TO 3 LITER VIA NASAL CANULA.O2 SAT 97% NO SOB NOTED WILL MONITOR
[2022-04-03 16:00] VITALS: BP 108/50
[2022-04-03] MEDS: GLUCERNA 1.2 1,000 ML BOTTLE NG PRN (16:20)
--- NOTE | 2022-04-03 17:00 | NUR ---
RN NOTES: PT STILL ON NASAL CANULA O2 SAT 98% ON 3 LITER, NO SOB OR RESPIRATORY DISTRESS NOTED
--- NOTE | 2022-04-03 18:30 | NUR ---
RN NOTES: O2 SAT 78% TITRATED OXYGEN TO 10 LITER VIA SIMPLE MASK , o2 SAT CAME UP TO 95% WILL MONITOR
--- NOTE | 2022-04-03 19:14 | NUR ---
BRADLEY RN CLOSING NOTES: PT IN BED A0X0, BREATHING ON 10L SIMPLE MASK, WITH 02 SAT OF 95%. NO S/S OF RESPIRATORY DISTRESS OR SOB. TELE READING SR WITH HR OF 87. IV ACCESS ON RH #20G RUNNING NS AT 75 MLS/HR. GT FEEDING INFUSING WELL,, 0 ML RESIDUAL NOTED. ALL NEEDS ATTENDED.ENDORSE TO RESTAURANT LINE SERVER NURSE FOR CONTINUE TO CARE.
--- NOTE | 2022-04-03 19:30 | NUR ---
TD RN OPENING NOTE RECEIVED REPORT FROM GATO FOR [facility]. PT IN BED, ASLEEP, AROUSABLE TO PAINFUL STIMULATION. DAUGHTER ON BEDSIDE. IN NO APPARENT DISTRESS NOTED UPON ASSESSMENT. CURRENTLY ON SIMPLE MASK, 8L. TOLERATING WELL. O2 SAT IS 97%. NO SOB, BREATHING IS EVEN AND UNLABORED. ON TELE MONITOR SHOWING SR WITH HR >90. IV ACCESS IS IN R HAND, #20g PATENT AND INTACT, RUNNING NS @ 75 CC/HR. GTF RUNNING GLUCERNA 1.2 @ 55 CC/HR X 24 HRS. <5 ML RESIDUAL NOTED. PUREWICK EXTERNAL CATHETER IN PLACE. DRAINING YELLOW-COLORED URINE. ALL SAFETY MEASURES IN PLACE: BED IN LOW AND LOCKED POSITION, SIDE RAILS UP, BED ALARM ON. CALL LIGHT WITHIN REACH. WILL CONTINUE TO MONITOR PT.
[2022-04-03 20:00] VITALS: BP 115/65
--- NOTE | 2022-04-03 20:10 | NUR ---
YUKO CARMEN 1.2 ORDERED TO RUN AT 55 CC/HR X 20 HRS. GTF STOPPED AT 1999. WILL RESUME AT 0001 LATER IN THE MORNING. Addendum: 04/03/22 at 2216 by BRENDA MONAHAN RN CHECKED PT ORDER HISTORY AND NEW ORDER TO CONTINUE GTF FOR 24 HRS NOTED. RESUMED GTF IMMEDIATELY.
[2022-04-03] MEDS: LATANOPROST EYE DROP 0.005% 2.5 ML BOTTLE EACHEYE SCH (21:07)
[2022-04-03] MEDS: THERAHONEY GEL 1.5 OZ TUBE TP SCH (22:16)
[2022-04-04] VITALS: BP_SYST 136; BP_SYST 141; BP_DIAS 58; BP_DIAS 80
--- NOTE | 2022-04-04 00:15 | NUR ---
RN NOTE PT IS FEBRILE AT 100.6. NO RESPI DISTRESS NOTED. ADMINISTERED TYLENOL ORDERED. GAVE PT COLD BATH TOO. WILL REASSESS IN 30 MINUTES.
[2022-04-04] MEDS: ALBUTEROL HALF STRENGTH 1.25 MG/3 ML VIAL.NEB NEB SCH ×4 (01:14→20:31)
[2022-04-04] MEDS: IPRATROPIUM NEB FS 0.5 MG/2.5 ML AMPUL.NEB NEB SCH ×4 (01:14→20:31)
--- NOTE | 2022-04-04 02:30 | NUR ---
RN NOTE TOOK NEW PICTURES OF PT'S WOUNDS: SACRAL DTI AND GT SITE REDNESS. SOME BRUISING ON BILATERAL ARMS NOTED, NO OPEN WOUNDS OBSERVED.
[2022-04-04 04:00] VITALS: BP 126/61
[2022-04-04] MEDS: BLOOD SUGAR DIAGNOSTIC 1 EACH STRIP IN SCH ×3 (05:44→18:01)
[2022-04-04] MEDS: INSULIN REGULAR, HUMAN 100 UNIT/ML 3 ML VIAL SQ PRN ×3 (05:44→19:57)
[2022-04-04] MEDS: IV NS 0.9% 1,000 ML IV PRN ×2 (06:04→21:12)
[2022-04-04] MEDS: LEVOTHYROXINE SODIUM 75 MCG TABLET GT SCH (06:07)
[2022-04-04 06:28] LABS: BASOPHILS # (AUTO) 0.1 K/uL (0.0-0.2); BASOPHILS % (AUTO) 0.3 % (0.0-2.0); EOSINOPHILS % (AUTO) 0.6 % (0.0-6.0); HEMATOCRIT 37 % (33-45); HEMOGLOBIN 11.6 g/dL (11.5-14.8); LYMPHOCYTES # (AUTO) 4.7 K/uL (0.8-4.8); LYMPHOCYTES % (AUTO) 13.9 % (20.0-44.0); MEAN CORPUSCULAR HGB CONC 32 g/dl (31.0-36.0); MEAN CORPUSCULAR VOLUME 94 fL (82-100); MONOCYTES # (AUTO) 2.9 K/uL (0.1-1.30); MONOCYTES % (AUTO) 8.5 % (2.0-12.0); NEUTROPHILS # (AUTO) 25.8 K/uL (1.8-8.9); NEUTROPHILS % (AUTO) 76.7 % (43.0-81.0); PLATELET COUNT (AUTO) 718 K/uL (150-450)
--- NOTE | 2022-04-04 06:32 | NUR ---
TD RN CLOSING NOTE PT IN BED, SLEEPING, AROUSABLE BY LIGHT PAIN. CURRENTLY ON NC AT 4L, TOLERATING WELL, SATING AT >95%. ALL OTHER VS STABLE. PT NOW AFEBRILE. GTF RUNNING AT 55 CC/H X 24 HRS. UNCLOGGED GT AFTER IT DID NOT FLUSH AND FEEDING MALFUNCTIONED. USED AN DECLOGGER AND FLUSHED WITH WARM WATER. ALL DUE MEDS GIVEN. TURNED AND REPOSITIONED. NEEDS ATTENDED. WILL ENDORSE TO AM SHIFT NURSE FOR АЛЕКСАНДР.
[2022-04-04 06:36] LABS: WHITE BLOOD COUNT (AUTO) 33.7 K/uL (4.3-11.0)
[2022-04-04 06:44] LABS: POTASSIUM 3.8 mmol/L (3.5-5.1)
[2022-04-04 06:45] LABS: CALCIUM, SERUM 8.8 mg/dL (8.5-10.1); CREATININE 0.7 mg/dL (0.6-1.3); MAGNESIUM 2.2 mg/dL (1.8-2.4); PHOSPHORUS 2.3 mg/dL (2.5-4.9)
--- NOTE | 2022-04-04 07:00 | NUR ---
RN NOTE RECEIVED LAB RESULT FOR WBC: 33.7 FROM 42.8
--- NOTE | 2022-04-04 07:00 | NUR ---
RN NOTE RECEIVED PATIENT IN BED RESTING ALERT ORIENTED X0 NON VERBAL, ON 4L OXYGEN VIA NASAL CANNULA O2:96% IV SITE IS ON RIGHT HAND INTACT PATENT ON IV HYDRATION NS 75CC/HR ON G-TUBE GLUCERNA 1.2 G-TUBE FEEDING CHECKED PLACEMENT IN PLACE NO RESIDUAL NOTED,INCONTINENT BLADDER/BOWEL.SAFETY MEASURE IMPLEMENT BED IN LOW POSITION AND LOCKED,HEAD OF THE BED ELEVATED,CONTINUE TO MONITOR.
[2022-04-04 08:00] VITALS: BP 135/67
[2022-04-04] MEDS: MEROPENEM 1 G in IV NS 0.9% 100 ML IV SCH ×2 (09:23→20:59)
[2022-04-04] MEDS: LINEZOLID RTU BAG 600 MG in PREMIX 1 EA IV SCH ×3 (09:24→20:59)
[2022-04-04] MEDS: BRIMONIDINE TARTRATE OPHT SOLN 5 ML BOTTLE EACHEYE SCH ×2 (09:25→17:57)
[2022-04-04] MEDS: TIMOLOL 0.5% SOLN OPHTH 5 ML BOTTLE EACHEYE SCH ×2 (09:25→17:57)
[2022-04-04] MEDS: THERAHONEY GEL 1.5 OZ TUBE TP SCH (09:26)
[2022-04-04] MEDS: VALPROIC ACID 250 MG/5 ML UDC GT SCH ×3 (09:30→17:50)
[2022-04-04] MEDS: LEVETIRACETAM SOL (5 ML) 100 MG/ML UDC GT SCH ×2 (09:30→17:50)
[2022-04-04] MEDS: ACETAMINOPHEN 325 MG TABLET PO SCH (09:31)
[2022-04-04] MEDS: LACTOBACILLUS RHAMNOSUS GG 1 EACH CAP.SPRINK GT SCH ×2 (09:31→17:50)
[2022-04-04] MEDS: MULTIVITAMINS,THERAGRAN 1 UDTAB TABLET GT SCH (09:31)
[2022-04-04] MEDS: ASCORBIC ACID 500 MG TABLET GT SCH (09:31)
[2022-04-04] MEDS: PANTOPRAZOLE 40 MG/PACK PACK GT SCH (09:31)
[2022-04-04] MEDS: AMLODIPINE BESYLATE 5 MG TABLET GT SCH (09:32)
[2022-04-04] MEDS: PROSOURCE / PROSTAT (PYXIS) 30 ML UDC JT SCH (09:34)
[2022-04-04] MEDS: ENOXAPARIN SODIUM 40 MG/0.4 ML DISP.SYRIN SQ SCH (09:39)
--- NOTE | 2022-04-04 10:00 | NUR ---
RN NOTE LACTIC ACID IS 3.0 NOTIFIED RENE MENDOZA,CONTINUE TO MONITOR.
[2022-04-04 10:44] LABS: BAND % (MANUAL) 16 % (0.0-5.0); EOSINOPHILS % (MANUAL) 2 % (0-4); LYMPHOCYTES % (MANUAL) 18 % (16-48); MONOCYTES % (MANUAL) 10 % (0-11.0); NEUTROPHILS % (MANUAL) 54 (42-76)
[2022-04-04 12:00] VITALS: BP 108/53
[2022-04-04] MEDS: MICAFUNGIN SODIUM 100 MG in IV NS 0.9% 100 ML IV SCH (12:13)
[2022-04-04] MEDS ORDERED: NEUTRA PHOS 1 POWD.PACKET NG ONE (13:00)
--- NOTE | 2022-04-04 14:40 | NUR ---
RN NOTE REPORT GIVEN TO TARYN HUNTLEY FOR CONTINUATION OF CARE.
[2022-04-04 16:00] VITALS: BP 139/80
[2022-04-04] MEDS: ACETAMINOPHEN 325 MG TABLET PO PRN ×2 (16:52)
--- NOTE | 2022-04-04 19:10 | NUR ---
RN NOTES RECEIVED REPORT FROM MORNING RN. PATIENT IN BED ASLEEP RESPONDING TO TACTILE STIMULI. WITH OXYGEN INHALATION AT 4 LPM VIA NASAL CANULA TOLERATING WELL SATING 97%. WITH JT PATENT CONNECTED TO CONTINUOS FEEDING 55ML/HR TOLERATING WELL NO GASTRIC RESIDUAL NOTED. WITH PUREWICK CONNECTED TO CONTINUOS SUCTION DRAINING YELLOWISH URINE OUTPUT. ALL SAFETY MEASURES IN PLACE AT ALL TIMES. HOB ELEVATED. CALL LIGHT WITHIN REACH. WILL CLOSELY MONITOR THE PATIENT
[2022-04-04 20:00] VITALS: BP 130/64
--- NOTE | 2022-04-04 20:46 | NUR ---
RN CLOSING NOTE PT IN BED AOX0 AROUSABLE TO DEEP PAIN. CURRENTLY BREATHING ON NC AT 4L, TOLERATING WELL, SATING AT 94%. PT NOW AFEBRILE. GTF RUNNING AT 55 CC/H X 24 HRS. ALL DUE MEDS GIVEN. TURNED AND REPOSITIONED. ALL NEEDS ATTENDED TO. WILL ENDORSE АЛЕКСАНДР TO DOOR FRAME BUILDER NURSE
[2022-04-04] MEDS: LATANOPROST EYE DROP 0.005% 2.5 ML BOTTLE EACHEYE SCH (21:02)
[2022-04-05] VITALS: BP 141/80
[2022-04-05] MEDS: BLOOD SUGAR DIAGNOSTIC 1 EACH STRIP IN SCH ×5 (00:22→23:40)
[2022-04-05] MEDS: INSULIN REGULAR, HUMAN 100 UNIT/ML 3 ML VIAL SQ PRN ×5 (00:26→23:43)
[2022-04-05] MEDS: ALBUTEROL HALF STRENGTH 1.25 MG/3 ML VIAL.NEB NEB SCH ×4 (01:00→19:46)
[2022-04-05] MEDS: IPRATROPIUM NEB FS 0.5 MG/2.5 ML AMPUL.NEB NEB SCH ×4 (01:00→19:46)
[2022-04-05] MEDS: GLUCERNA 1.2 1,000 ML BOTTLE GT PRN ×2 (01:12→23:40)
[2022-04-05 04:00] VITALS: BP 135/67
--- NOTE | 2022-04-05 04:02 | NUR ---
RT PT RECVD ON 4 LPM NC, NO SOB OR RESPIRATORY DISTRESS NOTED THROUGHOUT SHIFT. NEB TX GIVEN AND HELLEN WELL.
[2022-04-05] MEDS: ACETAMINOPHEN 325 MG TABLET PO PRN ×2 (04:08→14:00)
[2022-04-05 06:24] LABS: BASOPHILS # (AUTO) 0.1 K/uL (0.0-0.2); BASOPHILS % (AUTO) 0.3 % (0.0-2.0); EOSINOPHILS % (AUTO) 0.6 % (0.0-6.0); HEMATOCRIT 44 % (33-45); HEMOGLOBIN 13.5 g/dL (11.5-14.8); LYMPHOCYTES # (AUTO) 4.8 K/uL (0.8-4.8); LYMPHOCYTES % (AUTO) 23.6 % (20.0-44.0); MEAN CORPUSCULAR HGB CONC 31 g/dl (31.0-36.0); MEAN CORPUSCULAR VOLUME 97 fL (82-100); MONOCYTES # (AUTO) 2.5 K/uL (0.1-1.30); MONOCYTES % (AUTO) 12.1 % (2.0-12.0); NEUTROPHILS # (AUTO) 12.9 K/uL (1.8-8.9); NEUTROPHILS % (AUTO) 63.4 % (43.0-81.0); PLATELET COUNT (AUTO) 402 K/uL (150-450); RED BLOOD CELL COUNT(AUTO) 4.51 MIL/uL (4.0-5.2); WHITE BLOOD COUNT (AUTO) 20.4 K/uL (4.3-11.0)
--- NOTE | 2022-04-05 06:44 | NUR ---
RN NOTE PATIENT STILL ON OXYGEN INHALATION AT 4LPM, NO SOB NO DSITRESS NOTED AT THIS TIME. PATIENT WITH EPISODE OF INCREASE TEMPERATURE 101.3 COOLING MEASURES AND ACETAMINOPHEN GIVEN. TEMP WENT DOEN TO 98.6. ALL SAFETY MEASURES IN PLACE AT ALL TIMES. REPOSITION PATIENT Q2 HOB ELEVATED. WILL ENDORSED TO MORNING SHIFT FOR АЛЕКСАНДР.
[2022-04-05 06:54] LABS: CALCIUM, SERUM 8.6 mg/dL (8.5-10.1); CREATININE 0.6 mg/dL (0.6-1.3); MAGNESIUM 1.9 mg/dL (1.8-2.4); PHOSPHORUS 2.3 mg/dL (2.5-4.9); POTASSIUM 3.8 mmol/L (3.5-5.1)
--- NOTE | 2022-04-05 07:05 | NUR ---
RN OPENING NOTES RECEIVED PATIENT IN BED ASLEEP RESPONDING TO TACTILE STIMULI. WITH OXYGEN INHALATION AT 4 LPM VIA NASAL CANULA TOLERATING WELL SATING 97%. WITH JT PATENT CONNECTED TO CONTINUOS FEEDING 55ML/HR TOLERATING WELL. NO GASTRIC RESIDUAL NOTED. PUREWICK CONNECTED TO CONTINUOS SUCTION DRAINING YELLOWISH URINE OUTPUT. ALL SAFETY MEASURES IN PLACE, BED LOCKED IN LOWEST POSITION. AT ALL TIMES. HOB ELEVATED. CALL LIGHT WITHIN REACH. WILL CLOSELY MONITOR THE PATIENT
[2022-04-05] MEDS: LEVOTHYROXINE SODIUM 75 MCG TABLET GT SCH (07:30)
[2022-04-05 08:00] VITALS: BP 134/65
[2022-04-05] MEDS: MEROPENEM 1 G in IV NS 0.9% 100 ML IV SCH ×2 (09:23→20:36)
[2022-04-05] MEDS: LINEZOLID RTU BAG 600 MG in PREMIX 1 EA IV SCH ×2 (09:23→20:36)
[2022-04-05] MEDS: ENOXAPARIN SODIUM 40 MG/0.4 ML DISP.SYRIN SQ SCH (10:32)
[2022-04-05] MEDS: PROSOURCE / PROSTAT (PYXIS) 30 ML UDC JT SCH ×2 (10:34→17:00)
[2022-04-05] MEDS: MULTIVITAMINS,THERAGRAN 1 UDTAB TABLET GT SCH (10:37)
[2022-04-05] MEDS: ACETAMINOPHEN 325 MG TABLET PO SCH (10:37)
[2022-04-05] MEDS: LEVETIRACETAM SOL (5 ML) 100 MG/ML UDC GT SCH ×2 (10:37→17:47)
[2022-04-05] MEDS: PANTOPRAZOLE 40 MG/PACK PACK GT SCH (10:37)
[2022-04-05] MEDS: AMLODIPINE BESYLATE 5 MG TABLET GT SCH (10:38)
[2022-04-05] MEDS: ASCORBIC ACID 500 MG TABLET GT SCH (10:38)
[2022-04-05] MEDS: LACTOBACILLUS RHAMNOSUS GG 1 EACH CAP.SPRINK GT SCH ×2 (10:38→17:47)
[2022-04-05] MEDS: VALPROIC ACID 250 MG/5 ML UDC GT SCH ×3 (10:46→17:47)
[2022-04-05] MEDS ORDERED: NEUTRA PHOS 1 POWD.PACKET GT ONE (11:00)
[2022-04-05] MEDS: THERAHONEY GEL 1.5 OZ TUBE TP SCH (11:37)
[2022-04-05] MEDS: TIMOLOL 0.5% SOLN OPHTH 5 ML BOTTLE EACHEYE SCH ×2 (11:38→18:01)
[2022-04-05] MEDS: BRIMONIDINE TARTRATE OPHT SOLN 5 ML BOTTLE EACHEYE SCH ×2 (11:38→18:00)
[2022-04-05 12:00] VITALS: BP 150/71
[2022-04-05] MEDS: MICAFUNGIN SODIUM 100 MG in IV NS 0.9% 100 ML IV SCH (13:50)
[2022-04-05] MEDS: IV NS 0.9% 1,000 ML IV PRN (14:57)
[2022-04-05 16:00] VITALS: BP 153/76
--- NOTE | 2022-04-05 19:38 | NUR ---
CORPORATE COMMUNICATIONS MANAGER OPENING NOTES RECEIVED PATIENT IN BED ASLEEP RESPONDING TO TACTILE STIMULI. WITH OXYGEN INHALATION AT 2 LPM VIA NASAL CANULA TOLERATING WELL SATING 97%. WITH JT PATENT CONNECTED TO CONTINUOS FEEDING GLUCERNA AT 55ML/HR TOLERATING WELL, NO GASTRIC RESIDUAL NOTED. IV ACCESS AT PAO ML RUNNING NS AT 75 ML/HR, WITH PUTNAM CATHETER DRAINING TO YELLOWISH URINE OUTPUT. ALL SAFETY MEASURES IN PLACE AT ALL TIMES. HOB ELEVATED. CALL LIGHT WITHIN REACH. BED IN LOWEST AND LOCKED POSITION, WILL CLOSELY MONITOR THROUGHOUT THE SHIFT.
[2022-04-05 20:00] VITALS: BP 130/67
--- NOTE | 2022-04-05 20:08 | NUR ---
RT PT RECVD ON 2 LPM HUMIDIFIED O2 VIA NC, NO SOB OR RESPIRATORY DISTRESS NOTED AT THIS TIME. NEB TX GIVEN AND NO ADVERSE REACTION NOTED AT THIS TIME.
--- NOTE | 2022-04-05 20:17 | NUR ---
DIVEMASTER CLOSING NOTES PATIENT IN BED ASLEEP AOX1, RESPONSIVE TO DEEP PAIN. BREATHING ON 2 LPM VIA NASAL CANULA TOLERATING WELL SATING 97%. PT HAS JT PATENT CONNECTED TO CONTINUOS FEEDING GLUCERNA AT 55ML/HR TOLERATING WELL, NO GASTRIC RESIDUAL NOTED. IV ACCESS AT PAO ML RUNNING NS AT 75 ML/HR, WITH PUTNAM CATHETER DRAINING TO YELLOWISH URINE OUTPUT. ALL SAFETY MEASURES IN PLACE AT ALL TIMES. HOB ELEVATED. CALL LIGHT WITHIN REACH. BED IN LOWEST AND LOCKED POSITION, WILL ENDORSE CONTINUITY OF CARE TO NURSE CASE MANAGEMENT NURSE.
[2022-04-05] MEDS: LATANOPROST EYE DROP 0.005% 2.5 ML BOTTLE EACHEYE SCH (22:05)
--- NOTE | 2022-04-05 23:59 | NUR ---
RN NOTE BS CHECKED AT 170 MG/DL, 3 UNITS OF INSULIN GIVEN PER SLIDING SCALE. WILL CONT TO MONITOR.
[2022-04-06] VITALS: BP 136/70
[2022-04-06] MEDS: IPRATROPIUM NEB FS 0.5 MG/2.5 ML AMPUL.NEB NEB SCH ×4 (01:14→20:23)
[2022-04-06] MEDS: ALBUTEROL HALF STRENGTH 1.25 MG/3 ML VIAL.NEB NEB SCH ×4 (01:14→20:23)
--- NOTE | 2022-04-06 02:00 | NUR ---
SPUTUM SAMPLE OBTAINED. LEFT SAMPLE IN FRIDGE FOR LAB. RN INFORMED.
[2022-04-06 04:00] VITALS: BP 155/71
[2022-04-06] MEDS: LEVOTHYROXINE SODIUM 75 MCG TABLET GT SCH (06:05)
[2022-04-06] MEDS: BLOOD SUGAR DIAGNOSTIC 1 EACH STRIP IN SCH ×3 (06:05→17:38)
[2022-04-06] MEDS: INSULIN REGULAR, HUMAN 100 UNIT/ML 3 ML VIAL SQ PRN ×3 (06:08→17:39)
[2022-04-06] MEDS: IV NS 0.9% 1,000 ML IV PRN (06:11)
--- NOTE | 2022-04-06 06:26 | NUR ---
RN NOTE BS CHECKED AT 172 MG/DL, 3 UNITS OF INSULIN GIVEN PER SLIDING SCALE. WILL CONT TO MONITOR.
[2022-04-06 06:44] LABS: BASOPHILS % (AUTO) 0.1 % (0.0-2.0); EOSINOPHILS % (AUTO) 0.4 % (0.0-6.0); HEMATOCRIT 33 % (33-45); HEMOGLOBIN 10.7 g/dL (11.5-14.8); LYMPHOCYTES # (AUTO) 3.9 K/uL (0.8-4.8); LYMPHOCYTES % (AUTO) 14.2 % (20.0-44.0); MEAN CORPUSCULAR HGB CONC 33 g/dl (31.0-36.0); MEAN CORPUSCULAR VOLUME 94 fL (82-100); MONOCYTES # (AUTO) 3.6 K/uL (0.1-1.30); MONOCYTES % (AUTO) 12.8 % (2.0-12.0); NEUTROPHILS # (AUTO) 20.2 K/uL (1.8-8.9); NEUTROPHILS % (AUTO) 72.5 % (43.0-81.0); PLATELET COUNT (AUTO) 717 K/uL (150-450); RED BLOOD CELL COUNT(AUTO) 3.52 MIL/uL (4.0-5.2); WHITE BLOOD COUNT (AUTO) 27.8 K/uL (4.3-11.0)
--- NOTE | 2022-04-06 06:54 | NUR ---
AUTO TOP MECHANIC CLOSING NOTES PATIENT IN BED ASLEEP RESPONDING TO TACTILE STIMULI. WITH OXYGEN INHALATION AT 2 LPM VIA NASAL CANULA TOLERATING WELL SATING 97%. WITH JT PATENT CONNECTED TO CONTINUOS FEEDING GLUCERNA AT 55ML/HR TOLERATING WELL, NO GASTRIC RESIDUAL NOTED. IV ACCESS AT PAO ML RUNNING NS AT 75 ML/HR, WITH PUTNAM CATHETER DRAINING TO YELLOWISH URINE OUTPUT. ALL DUE MEDS GIVEN, KEPT DRY AND CLEAN, ALL SAFETY MEASURES IN PLACE AT ALL TIMES. HOB ELEVATED. CALL LIGHT WITHIN REACH. BED IN LOWEST AND LOCKED POSITION, WILL ENDORSE TO AM SHIFT NURSE TO FOR CONTINUITY OF CARE.
[2022-04-06 07:20] LABS: CALCIUM, SERUM 8.5 mg/dL (8.5-10.1); CREATININE 0.6 mg/dL (0.6-1.3); MAGNESIUM 1.7 mg/dL (1.8-2.4); PHOSPHORUS 2.9 mg/dL (2.5-4.9); POTASSIUM 3.7 mmol/L (3.5-5.1)
--- NOTE | 2022-04-06 07:20 | NUR ---
RN OPENING NOTES RECEIVED PATIENT IN BED ASLEEP RESPONDING TO TACTILE STIMULI. WITH OXYGEN INHALATION AT 2 LPM VIA NASAL CANULA TOLERATING WELL SATING 96%. WITH JTUBE PATENT CONNECTED TO CONTINUOS FEEDING GLUCERNA AT 55ML/HR TOLERATING WELL, NO GASTRIC RESIDUAL NOTED. IV ACCESS AT PAO ML RUNNING NS AT 75 ML/HR, WITH PUTNAM CATHETER DRAINING TO YELLOWISH URINE OUTPUT. ALL SAFETY MEASURES IN PLACE AT ALL TIMES. HOB ELEVATED. CALL LIGHT WITHIN REACH. BED IN LOWEST AND LOCKED POSITION.
[2022-04-06 08:00] VITALS: BP 135/65
[2022-04-06] MEDS: MEROPENEM 1 G in IV NS 0.9% 100 ML IV SCH ×2 (08:40→21:15)
[2022-04-06] MEDS: VALPROIC ACID 250 MG/5 ML UDC GT SCH ×3 (08:41→16:11)
[2022-04-06] MEDS: MULTIVITAMINS,THERAGRAN 1 UDTAB TABLET GT SCH (08:41)
[2022-04-06] MEDS: Magnesium 1GM/D5W 100ML PREMIX 100 ML IV SCH ×2 (08:41→11:37)
[2022-04-06] MEDS: LEVETIRACETAM SOL (5 ML) 100 MG/ML UDC GT SCH ×2 (08:41→16:11)
[2022-04-06] MEDS: ACETAMINOPHEN 325 MG TABLET PO SCH (08:41)
[2022-04-06] MEDS: PANTOPRAZOLE 40 MG/PACK PACK GT SCH (08:41)
[2022-04-06] MEDS: ENOXAPARIN SODIUM 40 MG/0.4 ML DISP.SYRIN SQ SCH (08:42)
[2022-04-06] MEDS: AMLODIPINE BESYLATE 5 MG TABLET GT SCH (08:44)
[2022-04-06] MEDS: ASCORBIC ACID 500 MG TABLET GT SCH (08:44)
[2022-04-06] MEDS: PROSOURCE / PROSTAT (PYXIS) 30 ML UDC JT SCH ×2 (08:45→16:11)
[2022-04-06] MEDS: LACTOBACILLUS RHAMNOSUS GG 1 EACH CAP.SPRINK GT SCH ×2 (08:47→16:11)
[2022-04-06] MEDS: BRIMONIDINE TARTRATE OPHT SOLN 5 ML BOTTLE EACHEYE SCH ×2 (08:51→16:12)
[2022-04-06] MEDS: TIMOLOL 0.5% SOLN OPHTH 5 ML BOTTLE EACHEYE SCH ×2 (08:51→16:12)
[2022-04-06] MEDS: THERAHONEY GEL 1.5 OZ TUBE TP SCH (09:06)
[2022-04-06] MEDS: LINEZOLID RTU BAG 600 MG in PREMIX 1 EA IV SCH ×2 (09:27→21:58)
[2022-04-06 12:00] VITALS: BP 119/60
[2022-04-06] MEDS: MICAFUNGIN SODIUM 100 MG in IV NS 0.9% 100 ML IV SCH (13:42)
[2022-04-06 16:00] VITALS: BP 123/59
[2022-04-06] MEDS: GLUCERNA 1.2 1,000 ML BOTTLE GT PRN (16:11)
--- NOTE | 2022-04-06 18:38 | NUR ---
SCOW CAPTAIN CLOSING NOTES PATIENT IN BED ASLEEP RESPONDING TO TACTILE STIMULI. WITH OXYGEN INHALATION AT 2 LPM VIA NASAL CANULA TOLERATING WELL SATING 97%. WITH JT PATENT CONNECTED TO CONTINUOS FEEDING GLUCERNA AT 55ML/HR TOLERATING WELL, NO GASTRIC RESIDUAL NOTED. IV ACCESS AT PAO ML RUNNING NS AT 75 ML/HR, WITH PUTNAM CATHETER DRAINING TO YELLOWISH URINE OUTPUT. ALL DUE MEDS GIVEN, KEPT DRY AND CLEAN, ALL SAFETY MEASURES IN PLACE AT ALL TIMES. HOB ELEVATED. CALL LIGHT WITHIN REACH. BED IN LOWEST AND LOCKED POSITION, WILL ENDORSE TO PM SHIFT NURSE TO FOR CONTINUITY OF CARE.
--- NOTE | 2022-04-06 19:20 | NUR ---
EXCHANGE ENGINEER NOTE: ASLEEP AND RESPONSIVE TO TACTILE STIMULI. HOB ELEVATED AT SEMI-FOWLERS POSITION. 02 NC AT 2LPM SATING AT 98 %. ON TELE MONITOR AND READING OF SINUS RHYTHM 84. LEFT UPPER ARM MIDLINE PATENT WITH NO S/S OF COMPLICATIONS WITH CLEAN DRESSING. IVF ON NS 75ML/HR. JT IN PLACE PATENT WITH GLUCERNA 1.2 AT 55 ML/HR. ASPIRATION PRECAUTIONS. PUTNAM CATHETER WITH YELLOW URINE. REPOSITIONED WITH PILLOWS. BILATERAL HALF SIDE RAILS UP X2. BED IS LOCKED, IN LOW POSITION, EXIT ALARM ON. CALL LIGHT IN REACH.
[2022-04-06 20:00] VITALS: BP 130/68
[2022-04-06] MEDS: LATANOPROST EYE DROP 0.005% 2.5 ML BOTTLE EACHEYE SCH (21:30)
[2022-04-07] VITALS: BP 158/68
[2022-04-07] MEDS: INSULIN REGULAR, HUMAN 100 UNIT/ML 3 ML VIAL SQ PRN ×5 (00:40→23:27)
[2022-04-07] MEDS: BLOOD SUGAR DIAGNOSTIC 1 EACH STRIP IN SCH ×5 (00:42→23:27)
[2022-04-07] MEDS: ACETAMINOPHEN 325 MG TABLET PO PRN ×2 (01:22→20:55)
[2022-04-07] MEDS: IV NS 0.9% 1,000 ML IV PRN (01:30)
[2022-04-07] MEDS: IPRATROPIUM NEB FS 0.5 MG/2.5 ML AMPUL.NEB NEB SCH ×2 (01:40→08:05)
[2022-04-07] MEDS: ALBUTEROL HALF STRENGTH 1.25 MG/3 ML VIAL.NEB NEB SCH ×4 (01:40→20:09)
[2022-04-07 04:00] VITALS: BP 145/67
--- NOTE | 2022-04-07 06:30 | NUR ---
MEDICAL INVESTIGATOR CLOSING NOTE: AWAKE AND RESPONSIVE TO VERBAL STIMULI. HOB ELEVATED AT SEMI-FOWLERS POSITION. 02 NC AT 2LPM SATING AT 97 %. ON TELE MONITOR AND READING OF SINUS RHYTHM 87. LEFT UPPER ARM MIDLINE PATENT WITH NO S/S OF COMPLICATIONS WITH CLEAN DRESSING. IVF ON NS 75ML/HR. JT IN PLACE PATENT WITH GLUCERNA 1.2 AT 55 ML/HR. ASPIRATION PRECAUTIONS. PUTNAM CATHETER WITH YELLOW URINE. TIMES ONE EPISODE OF LOOSE STOOL, AND X ONE EPISODE OF SOFT MEDIUM STOOL, KEPT CLEAN AND COMFORTABLE. WOUND CARE DONE ORDERED FOR SACRAL AREA AND JT STOMAL SITE. TURNED AND REPOSITIONED WITH PILLOWS. BILATERAL HALF SIDE RAILS UP X2. BED IS LOCKED, IN LOW POSITION, EXIT ALARM ON. CALL LIGHT IN REACH.
[2022-04-07 06:43] LABS: BASOPHILS # (AUTO) 0.2 K/uL (0.0-0.2); BASOPHILS % (AUTO) 0.8 % (0.0-2.0); EOSINOPHILS % (AUTO) 0.8 % (0.0-6.0); HEMATOCRIT 31 % (33-45); HEMOGLOBIN 10.2 g/dL (11.5-14.8); LYMPHOCYTES # (AUTO) 6.4 K/uL (0.8-4.8); MEAN CORPUSCULAR HGB CONC 33 g/dl (31.0-36.0); MEAN CORPUSCULAR VOLUME 93 fL (82-100); MONOCYTES # (AUTO) 2.7 K/uL (0.1-1.30); MONOCYTES % (AUTO) 13.4 % (2.0-12.0); NEUTROPHILS # (AUTO) 10.5 K/uL (1.8-8.9); PLATELET COUNT (AUTO) 684 K/uL (150-450); RED BLOOD CELL COUNT(AUTO) 3.38 MIL/uL (4.0-5.2); WHITE BLOOD COUNT (AUTO) 19.9 K/uL (4.3-11.0)
[2022-04-07 07:03] LABS: CALCIUM, SERUM 8.2 mg/dL (8.5-10.1); CARBON DIOXIDE 34 mmol/L (21-32); CHLORIDE 100 mmol/L (98-107); CREATININE 0.6 mg/dL (0.6-1.3); GLUCOSE 161 mg/dL (74-106); PHOSPHORUS 2.7 mg/dL (2.5-4.9); POTASSIUM 3.9 mmol/L (3.5-5.1); SODIUM SERUM 137 mmol/L (136-145); UREA NITROGEN, BLOOD 19 mg/dL (7-18)
--- NOTE | 2022-04-07 07:20 | NUR ---
RN OPENING NOTE RECEIVED PATIENT IN BED ASLEEP. PATIENT ON NASAL CANNULA 2L TOLERATING AT 96%.PATIENT HAS JTUBE.INTACT, PATENT. RUNNING 55 ML/HR TOLERATING WELL. NO RESIDUAL VOLUME NOTED. PATIENT HAS IV ACCESS AT L UA MIDLINE. PUTNAM CATHETHER IN PLACE. YELLOW COLOR DRAINING TO GRAVITY.ALL SAFETY MEASURES IN PLACE AT ALL TIMES.CALL LIGHT WITHIN REACH. BED IN LOWEST AND LOCKED POSITION. BED ALARM ON.SIDE RAILS UP X2
[2022-04-07 08:00] VITALS: BP 153/72
[2022-04-07] MEDS: LEVOTHYROXINE SODIUM 75 MCG TABLET GT SCH (08:33)
[2022-04-07] MEDS: BRIMONIDINE TARTRATE OPHT SOLN 5 ML BOTTLE EACHEYE SCH ×2 (08:33→18:05)
[2022-04-07] MEDS: LEVETIRACETAM SOL (5 ML) 100 MG/ML UDC GT SCH ×2 (08:34→17:16)
[2022-04-07] MEDS: TIMOLOL 0.5% SOLN OPHTH 5 ML BOTTLE EACHEYE SCH ×2 (08:34→18:05)
[2022-04-07] MEDS: VALPROIC ACID 250 MG/5 ML UDC GT SCH ×3 (08:34→17:16)
[2022-04-07] MEDS: LACTOBACILLUS RHAMNOSUS GG 1 EACH CAP.SPRINK GT SCH ×2 (08:34→17:16)
[2022-04-07] MEDS: ACETAMINOPHEN 325 MG TABLET PO SCH (08:35)
[2022-04-07] MEDS: ASCORBIC ACID 500 MG TABLET GT SCH (08:35)
[2022-04-07] MEDS: PANTOPRAZOLE 40 MG/PACK PACK GT SCH (08:35)
[2022-04-07] MEDS: MEROPENEM 1 G in IV NS 0.9% 100 ML IV SCH ×2 (08:35→20:55)
[2022-04-07] MEDS: PROSOURCE / PROSTAT (PYXIS) 30 ML UDC JT SCH ×2 (08:35→17:17)
[2022-04-07] MEDS: MULTIVITAMINS,THERAGRAN 1 UDTAB TABLET GT SCH (08:35)
[2022-04-07] MEDS: ENOXAPARIN SODIUM 40 MG/0.4 ML DISP.SYRIN SQ SCH (08:37)
[2022-04-07] MEDS: AMLODIPINE BESYLATE 5 MG TABLET GT SCH (08:39)
[2022-04-07] MEDS: GLUCERNA 1.2 1,000 ML BOTTLE GT PRN (08:40)
[2022-04-07] MEDS: LINEZOLID RTU BAG 600 MG in PREMIX 1 EA IV SCH ×2 (09:44→22:00)
[2022-04-07] MEDS: THERAHONEY GEL 1.5 OZ TUBE TP SCH (11:59)
[2022-04-07 12:00] VITALS: BP 139/74
[2022-04-07] MEDS: MICAFUNGIN SODIUM 100 MG in IV NS 0.9% 100 ML IV SCH (12:38)
[2022-04-07 16:00] VITALS: BP 159/82
--- NOTE | 2022-04-07 17:00 | NUR ---
rn note patient went for MRI
[2022-04-07 19:23] LABS: BAND % (MANUAL) 9 % (0.0-5.0); LYMPHOCYTES % (MANUAL) 22 % (16-48); MONOCYTES % (MANUAL) 9 % (0-11.0); NEUTROPHILS % (MANUAL) 59 (42-76); REACTIVE LYMPHOCYTES 1 % (0-0)
--- NOTE | 2022-04-07 19:39 | NUR ---
RN OPENING NOTE PATIENT ASLEEP IN BED. NON-VERBAL. NO S/S OF DISTRESS, BREATHING WITHOUT DIFFICULTY ON 2L NC. PAO MIDLINE #18 INTACT AND PATENT W/ NS 75ML/HR. TELE READS ST 112. TF GLUCERNA 55ML/HR. SAFETY MEASURES IN PLACE: BED LOCKED IN PLACE AND AT LOWEST POSITION, RAILS UP X2, CALL COOPER WITHIN REACH. WILL CONTINUE TO MONITOR PATIENT.
--- NOTE | 2022-04-07 19:45 | NUR ---
LABEL FOLDER CLOSING NOTE PATIENT ASLEEP IN BED. OXYGEN SATURATION AT 2 LPM NASAL CANNULA TOLERATING AT ABOVE 96%. JT PATENT AND INTACT. IV PATENT, FLUSHING WELL. GLUCERNA AT 55 ML/HR. IV ACCESS AT PAO ML RUNNING NS AT 75 ML/HR,. PUTNAM CATHETER DRAINING TO YELLOW URINE OUTPUT. ALL DUE MEDS GIVEN, KEPT DRY AND CLEAN, ALL SAFETY MEASURES IN PLACE AT ALL TIMES. HOB ELEVATED. CALL LIGHT WITHIN REACH. BED IN LOWEST AND LOCKED POSITION, ENDORSED TO MAGICIAN HELPER RN
[2022-04-07 20:26] VITALS: BP 145/72
--- NOTE | 2022-04-07 20:38 | NUR ---
RN NOTE PATIENT EXHIBITS FEVER OF 101.0. ICE BAGS PLACED UNDER ARMS BILAT. TYLENOL WILL BE ADMINISTERED. PATIENT OTHERWISE STABLE.
[2022-04-07] MEDS: LATANOPROST EYE DROP 0.005% 2.5 ML BOTTLE EACHEYE SCH (22:03)
[2022-04-08] VITALS: BP 139/67
[2022-04-08] MEDS: ALBUTEROL HALF STRENGTH 1.25 MG/3 ML VIAL.NEB NEB SCH ×4 (01:50→20:27)
[2022-04-08 04:18] VITALS: BP 143/70
[2022-04-08] MEDS: IV NS 0.9% 1,000 ML IV PRN ×2 (04:38→23:58)
[2022-04-08] MEDS: INSULIN REGULAR, HUMAN 100 UNIT/ML 3 ML VIAL SQ PRN ×3 (05:07→18:11)
[2022-04-08] MEDS: BLOOD SUGAR DIAGNOSTIC 1 EACH STRIP IN SCH ×3 (05:08→18:11)
--- NOTE | 2022-04-08 06:36 | NUR ---
RN CLOSING NOTE PATIENT ASLEEP IN BED. NON-VERBAL. NO S/S OF DISTRESS, BREATHING WITHOUT DIFFICULTY ON 2L NC. PAO MIDLINE #18 INTACT AND PATENT W/ NS 75ML/HR. TELE READS SR 87. GLUCERNA 55ML/HR. SAFETY MEASURES IN PLACE: BED LOCKED AND AT LOWEST POSITION, RAILS UP X2, CALL COOPER WITHIN REACH. WILL ENDORSE TO NEXT SHIFT FOR АЛЕКСАНДР.
[2022-04-08 06:56] LABS: BASOPHILS # (AUTO) 0.2 K/uL (0.0-0.2); BASOPHILS % (AUTO) 1.2 % (0.0-2.0); EOSINOPHILS % (AUTO) 1.4 % (0.0-6.0); HEMATOCRIT 36 % (33-45); HEMOGLOBIN 11.5 g/dL (11.5-14.8); LYMPHOCYTES % (AUTO) 29.8 % (20.0-44.0); MEAN CORPUSCULAR HGB CONC 32 g/dl (31.0-36.0); MEAN CORPUSCULAR VOLUME 94 fL (82-100); MONOCYTES # (AUTO) 1.7 K/uL (0.1-1.30); MONOCYTES % (AUTO) 10.4 % (2.0-12.0); NEUTROPHILS # (AUTO) 9.6 K/uL (1.8-8.9); NEUTROPHILS % (AUTO) 57.2 % (43.0-81.0); PLATELET COUNT (AUTO) 718 K/uL (150-450); RED BLOOD CELL COUNT(AUTO) 3.81 MIL/uL (4.0-5.2); WHITE BLOOD COUNT (AUTO) 16.8 K/uL (4.3-11.0)
[2022-04-08 07:09] LABS: CALCIUM, SERUM 8.4 mg/dL (8.5-10.1); CARBON DIOXIDE 35 mmol/L (21-32); CHLORIDE 100 mmol/L (98-107); CREATININE 0.6 mg/dL (0.6-1.3); GLUCOSE 171 mg/dL (74-106); POTASSIUM 3.6 mmol/L (3.5-5.1); SODIUM SERUM 139 mmol/L (136-145); UREA NITROGEN, BLOOD 20 mg/dL (7-18)
--- NOTE | 2022-04-08 07:30 | NUR ---
RN OPENING NOTE PATIENT IS IN BED, AWAKE, EYES OPEN SPONTANEOUSLY, NON VERBAL, WITHDRAWS TO LIGHT PAIN. WITH OXYGEN VIA NASAL CANNULA AT 2L/MIN, WITH O2 SATURATION AT 100%. SINUS RHYTHM ON ECONOMICS PROFESSOR. PUTNAM CATHETER INTACT AND ATTACHED TO URINE BAG DRAINING TO A CLEAR YELLOW URINE. WITH G-TUBE INFUSING WITH GLUCERNA 1.2 AT 55 ML/HR. LEFT UPPER ARM MIDLINE INTACT AND INFUSING WITH NS AT 75 ML/HR. BREATHING UNLABORED AND NOT IN ANY FORM OF DISTRESS. BED IS LOCKED IN LOWEST POSITION, 3 SIDE RAILS UP, CALL LIGHT WITHIN REACH. WILL CONTINUE TO MONITOR THROUGHOUT SHIFT.
[2022-04-08 08:00] VITALS: BP 153/73
[2022-04-08] MEDS: GLUCERNA 1.2 1,000 ML BOTTLE GT PRN (08:05)
[2022-04-08] MEDS: LACTOBACILLUS RHAMNOSUS GG 1 EACH CAP.SPRINK GT SCH ×2 (08:13→18:09)
[2022-04-08] MEDS: ACETAMINOPHEN 325 MG TABLET PO SCH (08:13)
[2022-04-08] MEDS: ASCORBIC ACID 500 MG TABLET GT SCH (08:13)
[2022-04-08] MEDS: PANTOPRAZOLE 40 MG/PACK PACK GT SCH (08:13)
[2022-04-08] MEDS: MULTIVITAMINS,THERAGRAN 1 UDTAB TABLET GT SCH (08:13)
[2022-04-08] MEDS: LEVETIRACETAM SOL (5 ML) 100 MG/ML UDC GT SCH ×2 (08:13→18:08)
[2022-04-08] MEDS: AMLODIPINE BESYLATE 5 MG TABLET GT SCH (08:14)
[2022-04-08] MEDS: LEVOTHYROXINE SODIUM 75 MCG TABLET GT SCH (08:14)
[2022-04-08] MEDS: MEROPENEM 1 G in IV NS 0.9% 100 ML IV SCH ×2 (08:16→20:46)
[2022-04-08] MEDS: VALPROIC ACID 250 MG/5 ML UDC GT SCH ×3 (08:16→18:08)
[2022-04-08] MEDS: BRIMONIDINE TARTRATE OPHT SOLN 5 ML BOTTLE EACHEYE SCH ×2 (08:33→18:08)
[2022-04-08] MEDS: TIMOLOL 0.5% SOLN OPHTH 5 ML BOTTLE EACHEYE SCH ×2 (08:33→18:08)
[2022-04-08] MEDS: PROSOURCE / PROSTAT (PYXIS) 30 ML UDC JT SCH ×2 (08:34→18:09)
[2022-04-08] MEDS: LINEZOLID RTU BAG 600 MG in PREMIX 1 EA IV SCH ×2 (09:38→21:15)
[2022-04-08] MEDS: ENOXAPARIN SODIUM 40 MG/0.4 ML DISP.SYRIN SQ SCH (09:39)
[2022-04-08] MEDS: THERAHONEY GEL 1.5 OZ TUBE TP SCH (09:41)
[2022-04-08 12:00] VITALS: BP 132/55
[2022-04-08] MEDS: MICAFUNGIN SODIUM 100 MG in IV NS 0.9% 100 ML IV SCH (12:10)
[2022-04-08 12:29] LABS: BAND % (MANUAL) 7 % (0.0-5.0); LYMPHOCYTES % (MANUAL) 25 % (16-48); MONOCYTES % (MANUAL) 11 % (0-11.0); NEUTROPHILS % (MANUAL) 57 (42-76)
[2022-04-08 16:00] VITALS: BP 132/57
--- NOTE | 2022-04-08 18:58 | NUR ---
RN CLOSING NOTE PATIENT REMAINED STABLE THROUGHOUT SHIFT. TOLERATES OXYGEN VIA NASAL CANNULA, BREATHING UNLABORED AND NOT IN ANY FORM OF DISTRESS. IV LINE REMAINS INTACT AND PATENT. ALL HOSPITAL SAFETY PRECAUTIONS IN PLACE. WILL ENDORSE TO CONTINUOUS PICKLING LINE PICKLER NURSE.
--- NOTE | 2022-04-08 19:30 | NUR ---
RN OPENING NOTES RECEIVED CARE OF PATIENT FROM AM SHIFT NURSE, PATIENT OPENS EYES, NON-VERBAL, NON-INTERACTIVE. PATIENT IS ON O2 THERAPY VIA NC AT 2 L/MIN, NO SOB NOTED, BILATERAL EQUAL CHEST RISE AND FALL NOTED. PATIENT ON TELE MONITOR READING SR WITH HR OF 86, NO DISTRESS NOTED. PUTNAM CATHETER INTACT AND ATTACHED TO URINE BAG DRAINING CLEAR YELLOW URINE. WITH G-TUBE INFUSING WITH GLUCERNA 1.2 AT 55 ML/HR, NO RESIDUAL NOTED. LEFT UPPER ARM MIDLINE INTACT AND INFUSING WITH NS AT 75 ML/HR. SAFETY MEASURES IMPLEMENTED PER HOSPITAL PROTOCOLS: BED IS LOCKED IN LOWEST POSITION, 3 SIDE RAILS UP, CALL LIGHT WITHIN REACH. WILL CARRY OUT PLAN OF CARE AND CONTINUE TO MONITOR.
[2022-04-08 20:00] VITALS: BP 113/53
--- NOTE | 2022-04-08 20:30 | NUR ---
RN NOTES PATIENT NOTED WITH TEMP. OF 99.3 F, MEASURED VIA AXILLARY ROUTE, COOLING MEASURES INITIATED, NO ACUTE DISTRESS NOTED ON PATIENT. WILL REASSESS ACCORDINGLY.
[2022-04-08] MEDS: LATANOPROST EYE DROP 0.005% 2.5 ML BOTTLE EACHEYE SCH (21:14)
[2022-04-09] VITALS: BP 134/64
[2022-04-09] MEDS: INSULIN REGULAR, HUMAN 100 UNIT/ML 3 ML VIAL SQ PRN ×5 (00:19→23:59)
[2022-04-09] MEDS: BLOOD SUGAR DIAGNOSTIC 1 EACH STRIP IN SCH ×4 (00:20→18:41)
[2022-04-09] MEDS: ALBUTEROL HALF STRENGTH 1.25 MG/3 ML VIAL.NEB NEB SCH ×4 (01:51→20:03)
[2022-04-09 04:00] VITALS: BP 137/66
[2022-04-09 05:53] LABS: BASOPHILS # (AUTO) 0.2 K/uL (0.0-0.2); BASOPHILS % (AUTO) 0.9 % (0.0-2.0); HEMATOCRIT 34 % (33-45); HEMOGLOBIN 11.1 g/dL (11.5-14.8); LYMPHOCYTES # (AUTO) 4.6 K/uL (0.8-4.8); LYMPHOCYTES % (AUTO) 26.2 % (20.0-44.0); MEAN CORPUSCULAR HGB CONC 32 g/dl (31.0-36.0); MEAN CORPUSCULAR VOLUME 93 fL (82-100); MONOCYTES # (AUTO) 1.3 K/uL (0.1-1.30); MONOCYTES % (AUTO) 7.6 % (2.0-12.0); NEUTROPHILS % (AUTO) 63.3 % (43.0-81.0); PLATELET COUNT (AUTO) 696 K/uL (150-450); RED BLOOD CELL COUNT(AUTO) 3.68 MIL/uL (4.0-5.2); WHITE BLOOD COUNT (AUTO) 17.4 K/uL (4.3-11.0)
[2022-04-09 06:22] LABS: CALCIUM, SERUM 8.1 mg/dL (8.5-10.1); CARBON DIOXIDE 35 mmol/L (21-32); CHLORIDE 99 mmol/L (98-107); CREATININE 0.5 mg/dL (0.6-1.3); GLUCOSE 148 mg/dL (74-106); MAGNESIUM 1.9 mg/dL (1.8-2.4); PHOSPHORUS 2.5 mg/dL (2.5-4.9); POTASSIUM 4.2 mmol/L (3.5-5.1); SODIUM SERUM 136 mmol/L (136-145); UREA NITROGEN, BLOOD 18 mg/dL (7-18)
--- NOTE | 2022-04-09 07:27 | NUR ---
RN OPENING NOTE PATIENT IS IN BED, AWAKE, EYES OPEN SPONTANEOUSLY, NON VERBAL, WITHDRAWS TO LIGHT PAIN. WITH OXYGEN VIA NASAL CANNULA AT 2L/MIN. SINUS RHYTHM ON RASPBERRY CHECKER. PUTNAM CATHETER INTACT AND ATTACHED TO URINE BAG DRAINING TO A CLEAR YELLOW URINE. WITH G-TUBE INFUSING WITH GLUCERNA 1.2 AT 55 ML/HR. LEFT UPPER ARM MIDLINE INTACT AND INFUSING WITH NS AT 75 ML/HR. BREATHING UNLABORED AND NOT IN ANY FORM OF DISTRESS. BED IS LOCKED IN LOWEST POSITION, 3 SIDE RAILS UP, CALL LIGHT WITHIN REACH. WILL CONTINUE TO MONITOR THROUGHOUT SHIFT.
[2022-04-09 08:00] VITALS: BP 148/76
[2022-04-09] MEDS: PANTOPRAZOLE 40 MG/PACK PACK GT SCH (08:10)
[2022-04-09] MEDS: MULTIVITAMINS,THERAGRAN 1 UDTAB TABLET GT SCH (08:10)
[2022-04-09] MEDS: LEVETIRACETAM SOL (5 ML) 100 MG/ML UDC GT SCH ×2 (08:10→18:40)
[2022-04-09] MEDS: AMLODIPINE BESYLATE 5 MG TABLET GT SCH (08:11)
[2022-04-09] MEDS: ACETAMINOPHEN 325 MG TABLET PO SCH (08:11)
[2022-04-09] MEDS: LACTOBACILLUS RHAMNOSUS GG 1 EACH CAP.SPRINK GT SCH ×2 (08:12→18:40)
[2022-04-09] MEDS: ASCORBIC ACID 500 MG TABLET GT SCH (08:12)
[2022-04-09] MEDS: PROSOURCE / PROSTAT (PYXIS) 30 ML UDC JT SCH ×2 (08:12→18:41)
[2022-04-09] MEDS: LEVOTHYROXINE SODIUM 75 MCG TABLET GT SCH (08:15)
[2022-04-09] MEDS: MEROPENEM 1 G in IV NS 0.9% 100 ML IV SCH (08:15)
[2022-04-09] MEDS: VALPROIC ACID 250 MG/5 ML UDC GT SCH ×3 (08:15→18:40)
[2022-04-09] MEDS: BRIMONIDINE TARTRATE OPHT SOLN 5 ML BOTTLE EACHEYE SCH ×2 (08:19→18:33)
[2022-04-09] MEDS: THERAHONEY GEL 1.5 OZ TUBE TP SCH (08:19)
[2022-04-09] MEDS: TIMOLOL 0.5% SOLN OPHTH 5 ML BOTTLE EACHEYE SCH ×2 (08:19→18:33)
[2022-04-09] MEDS: GLUCERNA 1.2 1,000 ML BOTTLE GT PRN (08:38)
[2022-04-09] MEDS: LINEZOLID RTU BAG 600 MG in PREMIX 1 EA IV SCH (09:32)
[2022-04-09 12:00] VITALS: BP 114/57
[2022-04-09] MEDS: VANCOMYCIN 1 GM in IV D5W 250ml IV SCH ×2 (12:23→23:52)
[2022-04-09 16:11] VITALS: BP 132/68
[2022-04-09] MEDS: IV NS 0.9% 1,000 ML IV PRN (18:40)
--- NOTE | 2022-04-09 18:51 | NUR ---
RN CLOSING NOTE PATIENT REMAINED STABLE THROUGHOUT SHIFT. PATIENT REMAINS LETHARGIC BUT WITHDRAWS TO PAIN AND OPENS EYES SPONTANEOUSLY. TOLERATES O2 VIA NASAL CANNULA AT 2L/MIN. IV REMAINS INTACT AND PATENT. G-TUBE REMAINS INTACT AND PATENT, NO RESIDUAL NOTED. PUTNAM CATHETER REMAIN INTACT. BREATHING UNLABORED AND NOT IN ANY FORM OF DISTRESS. ALL HOSPITAL SAFETY PRECAUTIONS IN PLACE. WILL ENDORSE TO MAGNETIC DOCTOR NURSE.
--- NOTE | 2022-04-09 19:10 | NUR ---
RN NOTES RECEIVED REPORT FROM MORNING RN. PATIENT IN BED ASLEEP RESPONDING TO TACTILE STIMULI. WITH OXYGEN INHALATION AT 2 LPM VIA NASAL CANULA TOLERATING WELL SATING 97%. WITH IV ACCESS AT L UA MIDLINE PATENT CONNECTED TO IV FLUIDS NS @75CC/HR.WITH JT PATENT CONNECTED TO CONTINUOS FEEDING 55ML/HR TOLERATING WELL NO GASTRIC RESIDUAL NOTED. WITH PUTNAM CATHETER CONNECTED TO URINE BAG DRAINING YELLOWISH URINE OUTPUT ALL SAFETY MEASURES IN PLACE AT ALL TIMES. HOB ELEVATED. CALL LIGHT WITHIN REACH. WILL CLOSELY MONITOR THE PATIENT
[2022-04-09 20:00] VITALS: BP 146/65
[2022-04-09] MEDS: LATANOPROST EYE DROP 0.005% 2.5 ML BOTTLE EACHEYE SCH (21:15)
[2022-04-09] MEDS: ACETAMINOPHEN 325 MG TABLET PO PRN (21:19)
[2022-04-10] VITALS: BP 140/58
[2022-04-10] MEDS: ALBUTEROL HALF STRENGTH 1.25 MG/3 ML VIAL.NEB NEB SCH ×3 (01:22→13:55)
[2022-04-10 04:00] VITALS: BP 140/52
[2022-04-10] MEDS: BLOOD SUGAR DIAGNOSTIC 1 EACH STRIP IN SCH ×3 (05:37→11:17)
[2022-04-10] MEDS: INSULIN REGULAR, HUMAN 100 UNIT/ML 3 ML VIAL SQ PRN (05:39)
[2022-04-10] MEDS: GLUCERNA 1.2 1,000 ML BOTTLE GT PRN (05:42)
--- NOTE | 2022-04-10 06:47 | NUR ---
RN NOTE PATIENT STILL ON OXYGEN INHALATION AT 2LPM, NO SOB NO DISTRESS NOTED AT THIS TIME. PATIENT WITH EPISODE LOW GRADE TEMP 99.5 COOLING MEASURES DONE. TEMP WENT DOWN TO 98.6. PUTNAM CATHETER PATENT CONNECTED TO URINE BAG DRAINING YELLOWISH URINE OUTPUT.ALL SAFETY MEASURES IN PLACE AT ALL TIMES. REPOSITION PATIENT Q2 HOB ELEVATED. WILL ENDORSED TO MORNING SHIFT FOR АЛЕКСАНДР.
[2022-04-10 07:11] LABS: BASOPHILS # (AUTO) 0.1 K/uL (0.0-0.2); BASOPHILS % (AUTO) 0.7 % (0.0-2.0); EOSINOPHILS % (AUTO) 1.5 % (0.0-6.0); HEMATOCRIT 37 % (33-45); LYMPHOCYTES # (AUTO) 4.7 K/uL (0.8-4.8); LYMPHOCYTES % (AUTO) 32.6 % (20.0-44.0); MEAN CORPUSCULAR HGB CONC 32 g/dl (31.0-36.0); MEAN CORPUSCULAR VOLUME 94 fL (82-100); MONOCYTES # (AUTO) 0.9 K/uL (0.1-1.30); MONOCYTES % (AUTO) 6.5 % (2.0-12.0); NEUTROPHILS # (AUTO) 8.5 K/uL (1.8-8.9); NEUTROPHILS % (AUTO) 58.7 % (43.0-81.0); PLATELET COUNT (AUTO) 658 K/uL (150-450); RED BLOOD CELL COUNT(AUTO) 3.98 MIL/uL (4.0-5.2); WHITE BLOOD COUNT (AUTO) 14.5 K/uL (4.3-11.0)
--- NOTE | 2022-04-10 07:33 | NUR ---
RN OPENING NOTES PATIENT NOTED IN BED RESPOPNSIVE, PATIENT IN BED ASLEEP RESPONDING TO TACTILE STIMULI. WITH OXYGEN INHALATION AT 2 LPM VIA NASAL CANULA TOLERATING WELL, NO SOB NOTED, RESPIRATION EVEN AND UNLABORED. IV ACCESS AT L UA MIDLINE PATENT AND INTACT. ON GT FEEDING CONNECTED TO CONTINUOS FEEDING 55ML/HR TOLERATING WELL, NO VOMITING NOTED. WITH PUTNAM CATHETER CONNECTED TO URINE BAG DRAINING YELLOWISH URINE OUTPUT. ON TELE MONITORING WITH SR READING HR= 91. ALL SAFETY MEASURES IN PLACE AT ALL TIMES. HOB ELEVATED. CALL LIGHT WITHIN REACH. WILL CLOSELY MONITOR THE PATIENT.
[2022-04-10 08:00] VITALS: BP 150/77
[2022-04-10] MEDS: LEVOTHYROXINE SODIUM 75 MCG TABLET GT SCH (08:06)
[2022-04-10] MEDS: LEVETIRACETAM SOL (5 ML) 100 MG/ML UDC GT SCH (08:37)
[2022-04-10] MEDS: ACETAMINOPHEN 325 MG TABLET PO SCH (08:38)
[2022-04-10] MEDS: MULTIVITAMINS,THERAGRAN 1 UDTAB TABLET GT SCH (08:38)
[2022-04-10] MEDS: LACTOBACILLUS RHAMNOSUS GG 1 EACH CAP.SPRINK GT SCH (08:38)
[2022-04-10] MEDS: AMLODIPINE BESYLATE 5 MG TABLET GT SCH (08:38)
[2022-04-10] MEDS: ASCORBIC ACID 500 MG TABLET GT SCH (08:38)
[2022-04-10] MEDS: PANTOPRAZOLE 40 MG/PACK PACK GT SCH (08:38)
[2022-04-10] MEDS: VALPROIC ACID 250 MG/5 ML UDC GT SCH ×2 (08:38→12:13)
[2022-04-10] MEDS: PROSOURCE / PROSTAT (PYXIS) 30 ML UDC JT SCH (08:40)
[2022-04-10] MEDS: BRIMONIDINE TARTRATE OPHT SOLN 5 ML BOTTLE EACHEYE SCH (08:57)
[2022-04-10] MEDS: TIMOLOL 0.5% SOLN OPHTH 5 ML BOTTLE EACHEYE SCH (08:57)
[2022-04-10] MEDS: THERAHONEY GEL 1.5 OZ TUBE TP SCH (08:59)
[2022-04-10 09:00] LABS: GLUCOSE 195 mg/dL (74-106)
[2022-04-10] MEDS ORDERED: MUPIROCIN OINT 2% 22 GM TUBE NS SCH (09:00)
[2022-04-10 09:51] LABS: ALANINE AMINOTRANSFERASE 19 U/L (12-78); ALKALINE PHOSPHATASE 69 U/L (46-116); ASPARTATE AMINOTRANSFERASE 47 U/L (15-37); BILIRUBIN,TOTAL 0.2 mg/dL (0.2-1.0); CALCIUM, SERUM 8.1 mg/dL (8.5-10.1); CARBON DIOXIDE 30 mmol/L (21-32); CHLORIDE 95 mmol/L (98-107); CREATININE 0.5 mg/dL (0.6-1.3); PHOSPHORUS 2.9 mg/dL (2.5-4.9); POTASSIUM 4.7 mmol/L (3.5-5.1); SODIUM SERUM 130 mmol/L (136-145); TOTAL PROTEIN, SERUM 6.9 g/dL (6.4-8.2); UREA NITROGEN, BLOOD 16 mg/dL (7-18)
[2022-04-10 09:56] LABS: ALBUMIN 1.4 g/dL (3.4-5.0)
[2022-04-10] MEDS: IV NS 0.9% 1,000 ML IV PRN (10:25)
[2022-04-10] MEDS: VANCOMYCIN 1 GM in IV D5W 250ml IV SCH (11:06)
--- NOTE | 2022-04-10 11:14 | NUR ---
CHECK PROCESSING CLERK NOTE SEEN BY DR CARLOTTA FARLEY T DISCHARGE TO SNF AWARE THAT NA TODAY 130
[2022-04-10 12:00] VITALS: BP 117/61
--- NOTE | 2022-04-10 12:28 | NUR ---
HEALTH PROGRAM MANAGER NOTE COVID TEST DONE ,SENT TO LAB
--- NOTE | 2022-04-10 13:04 | NUR ---
RN NOTES CALLED [facility], SPOKE TO LUIS RN GAVE REPORT FOR DISCHARGE ORDERS, CONFIRMED UNDERSTANDING. CALLED DAUGHTER BING INFORMED THAT UNISAW OPERATOR SEEN THE PATIENT, PER UNISAW OPERATOR THE RIGHT TOE AND FOOT IS OK. PER BING VERY THANKFUL FOR CALLING HER. WILL CONTINUE TO MONITOR PATIENT.
--- NOTE | 2022-04-10 15:18 | NUR ---
supervisor telephone answering service note rounds made ,all needs attended ,turn reposition q2 hour
--- NOTE | 2022-04-10 16:07 | NUR ---
RN NOTES GAVE REPORT TO 3 EMT'S, CONFIRMED UNDERSTANDING, EMPTY PUTNAM CATH WITH 1620 CC CLEAR YELLOW URINE. GT PATENT AND INTACT, FLUSHES GT. PAO MIDLINE PATENT AND INTACT, FLUSHES WELL.UPPER AND LOWER DENTURES NOTED INTACT. INFORMED EMT TO LET THE SNF.
--- NOTE | 2022-04-10 16:12 | NUR ---
RN NOTES PATIENT LEFT THE HOSPITAL VIA GURNEY WITH 3 EMT'S IN STABLE CONDITION.
--- NOTE | 2022-04-10 16:29 | NUR ---
teletypesetter operator note ambulance arrived ,report given mid lie in place , tele removed belonging checked , went to snf with stable condition
== END 2022-04-10 16:14 | DRG 871 ==
LOC: ER 01:34 → TELE1 04:03 → TELE-TD 04:58 → TELE1 14:21 → TELE-TD 14:22 → TELE1 04-04 07:47
PROVIDERS: ADMIT Nurse Practitioner Acute Care
PROC: 05H633Z Insertion of Infusion Device into Left Subclavian Vein, Percutaneous Approach (ICD-10-PCS; principal; 2022-04-05)
PROC: B547ZZA Ultrasonography of Left Subclavian Vein, Guidance (ICD-10-PCS; 2022-04-05)
DX: A41.9 Sepsis, unspecified organism (principal); E43 Unspecified severe protein-calorie malnutrition; G93.41 Metabolic encephalopathy; J96.01 Acute respiratory failure with hypoxia; J69.0 Pneumonitis due to inhalation of food and vomit; I63.9 Cerebral infarction, unspecified; I62.02 Nontraumatic subacute subdural hemorrhage; J15.212 Pneumonia due to Methicillin resistant Staphylococcus aureus; E87.1 Hypo-osmolality and hyponatremia; E87.20 Acidosis, unspecified; N39.0 Urinary tract infection, site not specified; I62.03 Nontraumatic chronic subdural hemorrhage; J98.11 Atelectasis; J90 Pleural effusion, not elsewhere classified; E11.9 Type 2 diabetes mellitus without complications; R13.10 Dysphagia, unspecified; Z20.822 Contact with and (suspected) exposure to COVID-19; E88.09 Other disorders of plasma-protein metabolism, not elsewhere classified; D63.8 Anemia in other chronic diseases classified elsewhere; D32.0 Benign neoplasm of cerebral meninges; I10 Essential (primary) hypertension; E03.9 Hypothyroidism, unspecified; D75.839 Thrombocytosis, unspecified; I25.10 Atherosclerotic heart disease of native coronary artery without angina pectoris; Z93.1 Gastrostomy status; Z79.899 Other long term (current) drug therapy; Z85.028 Personal history of other malignant neoplasm of stomach; Z79.4 Long term (current) use of insulin; Z86.14 Personal history of Methicillin resistant Staphylococcus aureus infection; F03.90 Unspecified dementia, unspecified severity, without behavioral disturbance, psychotic disturbance, mood disturbance, and anxiety; L89.156 Pressure-induced deep tissue damage of sacral region; L89.516 Pressure-induced deep tissue damage of right ankle; L89.626 Pressure-induced deep tissue damage of left heel; L89.616 Pressure-induced deep tissue damage of right heel; I25.2 Old myocardial infarction
CPT/HCPCS: 36415; 36600; 70450-TC; 70551-TC; 71045-TC; 71250-TC; 80048-TC; 80053-TC; 80061-TC; 80076-TC; 80164-TC; 81001; 82962-TC; 83605-TC; 83735-TC; 83880; 84100-TC; 84443-TC; 84484-TC; 85025-TC; 86803; 87040-TC; 87070-TC; 87081-TC; 87086-TC; 87806; 93307-TC; 93970-TC; 94640-TC; 94760-TC; 94762-TC; 94799-TC; A4216; A6403; C9113; C9803; G0378; J0456; J0692; J0696; J1650; J1815; J1953; J2020; J2185; J2248; J3370; J3475; J7030; J7060

== ENCOUNTER 2022-04-27 08:53 | Inpatient (IN) | payer MEDICARE, OTHER ==
[~2022-04-27] VITALS: Ht 162.6 cm; Wt 49.9 kg
[2022-04-27] VITALS (7 sets, daily range): BP systolic 91–113; BP diastolic 39–59
[~2022-04-27 08:53] MED LIST changes: +AMIN30LI27 JT; +ASCO-352 JT; +CRAN425C6 JT; +DAPA5TAB JT; +HYDR50TA61 JT; +INSU100V11 SQ; -INSU100V27 SQ; -LEVE500T9 GT; -LEVO75TA7 GT; +LINA5TAB JT; +MULT-447 JT; +OLAN2.5T3 JT; +VALP250S22 JT
[2022-04-27] MEDS ORDERED: COLL30OI TP (09:14)
[2022-04-27] MEDS ORDERED: LEVE500T9 JT (09:14)
[2022-04-27] MEDS ORDERED: MAG30ORA JT (09:14)
[2022-04-27] MEDS ORDERED: ALBU1.257 IH (09:14)
[2022-04-27] MEDS ORDERED: PANT40SU2 JT (09:14)
[2022-04-27] MEDS ORDERED: CRAN3875 JT (09:14)
[2022-04-27] MEDS ORDERED: TIMO5DRO31 EACHEYE (09:14)
[2022-04-27] MEDS ORDERED: LATA2.5D15 EACHEYE (09:14)
[2022-04-27] MEDS ORDERED: CLOT15CR5 TP (09:14)
[2022-04-27] MEDS ORDERED: ZINC220C6 JT (09:14)
[2022-04-27] MEDS ORDERED: NYST15PO4 TP (09:14)
[2022-04-27] MEDS ORDERED: LEVO75TA7 JT (09:14)
--- NOTE | 2022-04-27 09:23 | NUR ---
PATIENT ARRIVED VIA AMBULANCE FOR FEVER, PLACED IN BED 8
[2022-04-27] MEDS ORDERED: CEFEPIME 1 GM in IV D5W 50 ML IV ONE (09:30)
[2022-04-27] MEDS ORDERED: VANCOMYCIN 1 GM in IV D5W 250 ML IV ONE (09:30)
[2022-04-27] MEDS ORDERED: IV NS 0.9% 1,000 ML BAG IV ONE (09:30)
[2022-04-27 09:34] LABS: BASOPHILS # (AUTO) 0.1 K/uL (0.0-0.2); HEMOGLOBIN 10.2 g/dL (11.5-14.8)
[2022-04-27 09:39] LABS: BASOPHILS % (AUTO) 0.3 % (0.0-2.0); HEMATOCRIT 31 % (33-45); LYMPHOCYTES # (AUTO) 5.6 K/uL (0.8-4.8); LYMPHOCYTES % (AUTO) 19.8 % (20.0-44.0); MEAN CORPUSCULAR HGB CONC 33 g/dl (31.0-36.0); MEAN CORPUSCULAR VOLUME 93 fL (82-100); MONOCYTES # (AUTO) 1.9 K/uL (0.1-1.30); MONOCYTES % (AUTO) 6.7 % (2.0-12.0); NEUTROPHILS # (AUTO) 20.6 K/uL (1.8-8.9); NEUTROPHILS % (AUTO) 73.2 % (43.0-81.0); RED BLOOD CELL COUNT(AUTO) 3.36 MIL/uL (4.0-5.2); WHITE BLOOD COUNT (AUTO) 28.1 K/uL (4.3-11.0)
[2022-04-27] MEDS ORDERED: IBUPROFEN 400 MG TABLET ONE ×2 (09:39)
[2022-04-27 09:40] LABS: PLATELET COUNT (AUTO) 912 K/uL (150-450)
[2022-04-27 09:46] LABS: CALCIUM, SERUM 8.5 mg/dL (8.5-10.1); CARBON DIOXIDE 35 mmol/L (21-32); CHLORIDE 97 mmol/L (98-107); CREATININE 0.8 mg/dL (0.6-1.3); GLUCOSE 311 mg/dL (74-106); POTASSIUM 4.3 mmol/L (3.5-5.1); SODIUM SERUM 137 mmol/L (136-145); UREA NITROGEN, BLOOD 34 mg/dL (7-18)
[2022-04-27 09:53] LABS: ALANINE AMINOTRANSFERASE 14 U/L (12-78); ALBUMIN 1.7 g/dL (3.4-5.0); ALKALINE PHOSPHATASE 56 U/L (46-116); ASPARTATE AMINOTRANSFERASE 20 U/L (15-37); BILIRUBIN,DIRECT 0.2 mg/dL (0.0-0.2); BILIRUBIN,TOTAL 0.3 mg/dL (0.2-1.0); TOTAL PROTEIN, SERUM 7.8 g/dL (6.4-8.2)
[2022-04-27] MEDS ORDERED: IBUPROFEN 400 MG TABLET GT ONE (10:00)
--- NOTE | 2022-04-27 10:29 | NUR ---
COVID SWAB DONE AND SENT TO LAB
--- NOTE | 2022-04-27 10:32 | NUR ---
[facility] CALLED WALL INSULATION SPRAYER PAGED.
--- NOTE | 2022-04-27 10:35 | NUR ---
URINE SAMPLE COLLECTED AND PLACED IN DROP-OFF BOX
--- NOTE | 2022-04-27 10:36 | NUR ---
BLOOD SAMPLE COLLECTED BY LAB
--- NOTE | 2022-04-27 11:11 | NUR ---
VITAL SIGNS: BP 112/72, HR 93, RR 24, O2 94% ON 10 LPM VIA FACE MASK, TEMP 102.3
--- NOTE | 2022-04-27 12:10 | NUR ---
BED ASSIGNED. 118.1 ADMITTING AWARE.
--- NOTE | 2022-04-27 12:20 | NUR ---
report given to david rincon. awaiting transfer to floor.
--- NOTE | 2022-04-27 12:34 | NUR ---
Patient transferred to bed 118, report given
--- NOTE | 2022-04-27 12:40 | NUR ---
rn note received report from Giovani lira nurse. pt is awake.pt is nonverbal. pt has gtube intact, patent.pt has gtube in place. gtube, patent and intact. pt has boateng catheter in place. yellow color output. pt has sacral ulcer and redness near gtube. all safety measure.call llight within reach. bed locked at lowest position. side rails up x2. call light within reach. bed locked at lowest position
[2022-04-27 13:28] LABS: BILIRUBIN,URINE NEGATIVE (NEGATIVE); COLOR,URINE YELLOW (YELLOW); LEUKOCYTE ESTERASE ,URINE MODERATE (NEGATIVE); NITRITE, URINE NEGATIVE (NEGATIVE); PH,URINE 5.5 (5.0-8.0); PROTEIN,URINE 30 mg/dl (NEGATIVE); UGLUCOSE 250 MG/DL mg/dL (NEGATIVE); UROBILINOGEN,URINE 0.2 EU/dL (0.2)
[2022-04-27] MEDS ORDERED: BISACODYL SUPP (10 MG) 10 MG/SUPP.RECT SUPP.RECT RC PRN (13:30)
[2022-04-27] MEDS ORDERED: ACETAMINOPHEN 650 MG/20.3 ML UDC GT PRN (13:30)
[2022-04-27] MEDS ORDERED: ONDANSETRON HCL/PF 4 MG/2 ML VIAL IVP PRN (13:30)
[2022-04-27] MEDS ORDERED: GLUCERNA 1.2 1,000 ML BOTTLE NG PRN (13:30)
[2022-04-27] MEDS ORDERED: MAG HYDROX/AL HYDROX/SIMETH 30 ML UDC PO PRN (13:30)
[2022-04-27] MEDS ORDERED: MAGNESIUM HYDROXIDE 30 ML UDC JT PRN (13:30)
[2022-04-27] MEDS ORDERED: MAGNESIUM HYDROXIDE 30 ML UDC GT PRN (13:30)
[2022-04-27] MEDS ORDERED: MAG HYDROX/AL HYDROX/SIMETH 30 ML UDC JT PRN (13:30)
[2022-04-27] MEDS ORDERED: DEXTROSE 50%-WATER 50 ML DISP.SYRIN IV PRN (13:30)
[2022-04-27 14:08] LABS: BACTERIA,URINE 2+ /HPF (None Seen); YEAST,URINE Many /HPF (None Seen)
[2022-04-27] MEDS: IV NS 0.9% 1,000 ML IV PRN (15:29)
--- NOTE | 2022-04-27 15:30 | NUR ---
RN NOTE pt said pt has swollen hand and fingers. asked if normal saline can be run at lower rate. no new orders given
--- NOTE | 2022-04-27 15:31 | NUR ---
rn note notified dr. hernandez that bp is 90/36 comparted to 95/47 upon admission. md said pt might need midline and give 500 ml normal saline bolus x1. orders noted and carried out
--- NOTE | 2022-04-27 15:35 | NUR ---
rn note kept arms elevated to decrease swelling
[2022-04-27] MEDS ORDERED: IV NS 0.9% 500 ML IV ONE (17:00)
[2022-04-27] MEDS: BRIMONIDINE TARTRATE OPHT SOLN 5 ML BOTTLE EACHEYE SCH (17:23)
[2022-04-27] MEDS: TIMOLOL 0.5% SOLN OPHTH 5 ML BOTTLE EACHEYE SCH (17:23)
[2022-04-27] MEDS: VALPROIC ACID 250 MG/5 ML UDC JT SCH (17:23)
[2022-04-27] MEDS: BLOOD SUGAR DIAGNOSTIC 1 EACH STRIP VI SCH ×2 (18:04→21:23)
[2022-04-27] MEDS: INSULIN REGULAR, HUMAN 100 UNIT/ML 3 ML VIAL SQ PRN ×2 (18:17→21:24)
--- NOTE | 2022-04-27 18:45 | NUR ---
rn note notified dr. hernandez that after bolus bp is 79/41. dr. hernandez said to transfer to icu levophed per protocol. orders noted and endorsed to second shift supervisor rn. due to bed not being available in icu
[2022-04-27] MEDS ORDERED: NOREPINEPHRINE 8 MG in IV NS 0.9% 242 ML IV PRN (19:00)
[2022-04-27] MEDS: ALBUTEROL HALF STRENGTH 1.25 MG/3 ML VIAL.NEB IH SCH ×2 (19:30→20:22)
[2022-04-27] MEDS: VANCOMYCIN 500 MG in IV D5W 100 ML IV SCH (20:06)
[2022-04-27] MEDS: LEVETIRACETAM SOL (5 ML) 100 MG/ML UDC JT SCH (20:07)
[2022-04-27] MEDS: LATANOPROST EYE DROP 0.005% 2.5 ML BOTTLE EACHEYE SCH (20:08)
--- NOTE | 2022-04-27 20:16 | NUR ---
rn closing note pt is asleep in high fowlers position.pt is nonverbal. pt has edema on both hands. pt on tele monitor. kept arm elevated. pt is on 5-6 nasal cannula tolerating above 95%. pt has glucerna. gtube in place, patent and intact. pt has Almodovar catheter in place. yellow color output. pt has sacral ulcer and redness near gtube. all safety measure.call light within reach. bed locked at lowest position. side rails up x2. call light within reach. bed locked at lowest position. endorsed to reverser rn that pt might be transferred to icu due to low bp and for continuity of care
[2022-04-27] MEDS: CEFEPIME 2 GM in IV D5W 100 ML IV SCH (21:10)
[2022-04-27] MEDS: FLUCONAZOLE (100 MG) 100 MG TABLET PO SCH (22:54)
[2022-04-28] VITALS (8 sets, daily range): BP systolic 101–119; BP diastolic 40–58
[2022-04-28] MEDS: ALBUTEROL HALF STRENGTH 1.25 MG/3 ML VIAL.NEB IH SCH ×4 (01:36→20:26)
[2022-04-28] MEDS: IV NS 0.9% 1,000 ML IV PRN ×2 (05:39→18:55)
--- NOTE | 2022-04-28 07:10 | NUR ---
RN CLOSING NOTE PATIENT IN BED, WITH EYES CLOSED, NONVERBAL, AT 5LPM VIA NC, NO SOB/NO SIGNS OF ACUTE DISTRESS NOTED DURING THE NIGHT, WITH BLOOD PRESSURE WNL ALL NIGHT, BLOOD PRESSURE TAKEN Q1H SINCE PATIENT HAD AN ORDER TO BE TRANSFER TO ICU LAST NIGHT FOR HYPOTENSION, BUT PATIENT REMAINED STABLE DURING THE NIGHT, WOUND CONSULT TO FOLLOW, ALL SAFETY MEASURES MAINTAINED, BED IN LOWEST AND LOCKED POSITION, SIDE RAILS UP X2, CALL LIGHT WITHIN REACH, WILL ENDORSE CONTINUITY OF CARE TO ONCOMING NURSE.
[2022-04-28] MEDS: BLOOD SUGAR DIAGNOSTIC 1 EACH STRIP VI SCH ×4 (07:30→21:22)
--- NOTE | 2022-04-28 07:31 | NUR ---
FLIGHT LINE SERVICE ATTENDANT OPENING NOTES: RECEIVED PATIENT IN BED, ASLEEP, RESPONDS TO DEEP STIMULI, PATIENT IS NON VERBAL, NO S/S OF PAIN OR DISCOMFORT AT THIS TIME. NO RESPIRATORY DISTRESS NOTED AT THIS TIME. ON OXYGEN @ 5L/MIN VIA N/C WITH OXYGEN SATURATION OF 95%. ON SR ON TELE MONITOR WITH HR OF 98. IV ACCESS ON LEFT UPPER ARM MIDLINE RUNNING WITH NS @ 75 ML/HR, NO S/S INFILTRATION NOTED ON THE IV SITE. PUTNAM CATHETER INTACT, DRAINING WITH DARK YELLOW COLORED URINE, NO HEMATURIA AND NO SEDIMENTATION NOTED. HOB KEPT ELEVATED. CALL LIGHT WITHIN REACH, BED LOCKED AND IN LOWEST POSITION. ALL SAFETY MEASURES IN PLACE. WILL CONTINUE TO MONITOR PATIENT THROUGHOUT SHIFT.
[2022-04-28 07:33] LABS: BASOPHILS # (AUTO) 0.2 K/uL (0.0-0.2); BASOPHILS % (AUTO) 0.7 % (0.0-2.0); EOSINOPHILS % (AUTO) 0.2 % (0.0-6.0); HEMATOCRIT 29 % (33-45); HEMOGLOBIN 8.9 g/dL (11.5-14.8); LYMPHOCYTES # (AUTO) 7.4 K/uL (0.8-4.8); LYMPHOCYTES % (AUTO) 21.5 % (20.0-44.0); MEAN CORPUSCULAR HGB CONC 31 g/dl (31.0-36.0); MEAN CORPUSCULAR VOLUME 94 fL (82-100); MONOCYTES # (AUTO) 1.9 K/uL (0.1-1.30); MONOCYTES % (AUTO) 5.6 % (2.0-12.0); NEUTROPHILS # (AUTO) 24.7 K/uL (1.8-8.9); PLATELET COUNT (AUTO) 860 K/uL (150-450); RED BLOOD CELL COUNT(AUTO) 3.04 MIL/uL (4.0-5.2)
[2022-04-28 07:34] LABS: CALCIUM, SERUM 7.8 mg/dL (8.5-10.1); CARBON DIOXIDE 30 mmol/L (21-32); CHLORIDE 105 mmol/L (98-107); CREATININE 0.4 mg/dL (0.6-1.3); GLUCOSE 116 mg/dL (74-106); MAGNESIUM 2.1 mg/dL (1.8-2.4); PHOSPHORUS 2.2 mg/dL (2.5-4.9); POTASSIUM 3.4 mmol/L (3.5-5.1); SODIUM SERUM 142 mmol/L (136-145); UREA NITROGEN, BLOOD 22 mg/dL (7-18)
[2022-04-28 08:23] LABS: WHITE BLOOD COUNT (AUTO) 34.3 K/uL (4.3-11.0)
[2022-04-28] MEDS: TIMOLOL 0.5% SOLN OPHTH 5 ML BOTTLE EACHEYE SCH ×2 (09:00→17:11)
[2022-04-28] MEDS: BRIMONIDINE TARTRATE OPHT SOLN 5 ML BOTTLE EACHEYE SCH ×2 (09:00→17:11)
[2022-04-28] MEDS: CLOTRIMAZOLE/BETAMETASONE DIPROPIONATE 15 GM TUBE TP SCH (09:07)
--- NOTE | 2022-04-28 09:10 | NUR ---
SPOKE WITH LO AT THE PHARMACY AND STATED THAT IT'S OK TO ADMINISTER VANCO TO THE PATIENT
[2022-04-28] MEDS: VALPROIC ACID 250 MG/5 ML UDC JT SCH ×3 (09:19→17:11)
[2022-04-28] MEDS: LEVETIRACETAM SOL (5 ML) 100 MG/ML UDC JT SCH ×2 (09:19→21:21)
[2022-04-28] MEDS: PANTOPRAZOLE 40 MG/PACK PACK JT SCH (09:19)
[2022-04-28] MEDS: LACTOBACILLUS RHAMNOSUS GG 1 EACH CAP.SPRINK GT SCH (09:19)
[2022-04-28] MEDS: FLUCONAZOLE (100 MG) 100 MG TABLET PO SCH (09:19)
[2022-04-28] MEDS: ACETAMINOPHEN 650 MG/20.3 ML UDC GT SCH (09:19)
[2022-04-28] MEDS: THERAHONEY GEL 1.5 OZ TUBE TP SCH (09:20)
[2022-04-28] MEDS: VANCOMYCIN 500 MG in IV D5W 100 ML IV SCH ×2 (09:20→21:21)
[2022-04-28] MEDS: Z GUARD REMEDY 4 OZ OINT TP PRN (09:20)
[2022-04-28] MEDS: LEVOTHYROXINE SODIUM 75 MCG TABLET GT SCH (09:20)
[2022-04-28] MEDS: NYSTATIN TOP POWDER 15 GM BOTTLE TP SCH (09:25)
--- NOTE | 2022-04-28 09:56 | NUR ---
WOUND CARE CONSULT: PT PRESENTS WITH MULTIPLE WOUNDS AND SKIN ISSUES PRESENT ON ADMISSION INCLUDING SACRAL UNSTAGEABLE PRESSURE ULCER, DEEP TISSUE INJURIES TO HEELS AND ANKLES, SCARS TO BILATERAL MEDIAL KNEES AND DISCOLORATION TO UPPER EXTREMITIES AND REDNESS AROUND G TUBE SITE. DR RICARDO AND DR MASCORRO CALLED FOR SURGICAL AND DPM CONSULTS. RECOMMENDATIONS MADE FOR SKIN PROTECTION. DISCUSSED WITH NURSING STAFF. MD IN AGREEMENT WITH PLAN OF CARE.
[2022-04-28] MEDS ORDERED: NEUTRA PHOS 1 POWD.PACKET GT ONE (10:00)
[2022-04-28] MEDS ORDERED: POTASSIUM CHLORIDE 20 MEQ POWDER PACKET GT SCH (10:00)
[2022-04-28 10:13] LABS: BAND % (MANUAL) 6 % (0.0-5.0); LYMPHOCYTES % (MANUAL) 16 % (16-48); METAMYELOCYTES % 1 % (0-0); MONOCYTES % (MANUAL) 8 % (0-11.0); MYELOCYTES % 1 % (0-0); NEUTROPHILS % (MANUAL) 66 (42-76); REACTIVE LYMPHOCYTES 2 % (0-0)
[2022-04-28] MEDS: CEFEPIME 2 GM in IV D5W 100 ML IV SCH (10:38)
[2022-04-28] MEDS: INSULIN REGULAR, HUMAN 100 UNIT/ML 3 ML VIAL SQ PRN (12:09)
--- NOTE | 2022-04-28 12:44 | NUR ---
PATIENT WAS NOTED TO HAVE OXYGEN SATURATION OF 68%. OXYGEN INCREASED TO 15 L VIA NON NONBREATHER MASK AND CALLED RT IMMEDIATELY. HOB KEPT ELEVATED AND STAYED WITH THE PATIENT. BP WAS 118/53, PULSE 83, TEMP 98.4, RR 22. INFORMED
--- NOTE | 2022-04-28 13:15 | NUR ---
PATIENT IS IN NO ACUTE RESPIRATORY DISTRESS AT THIS TIME. RT SUCTIONED THE PATIENT AND DID BREATHING TREATMENT EARLIER. PATIENT IS ON OXYGEN @ 5L/MIN VIA N/C WITH OXYGEN SATURATION OF 95
--- NOTE | 2022-04-28 15:44 | NUR ---
CLAY SPECIMEN HANDED TO SALES TRADER PREVIOUSLY ORDERED BY
[2022-04-28] MEDS ORDERED: LIDOCAINE 1%-EPI 1:100,000 20 ML VIAL TP ONE (16:30)
[2022-04-28] MEDS ORDERED: SILVER NITRATE APPLICATOR 1 EA BOX TP PRN (16:30)
--- NOTE | 2022-04-28 16:36 | NUR ---
WEBSPHERE ADMINISTRATOR CLOSING NOTES: PATIENT IN BED ASLEEP BUT RESPONDS TO STIMULI. ON SR ON TELE MONITOR WITH HR OF 87. NO RESPIRATORY DISTRESS NOTED, OXYGEN SATURATION OF 94 ON OXYGEN @ 5L/MIN VIA N/C. STILL ON IVF OF NS RUNNING @ 75 ML/HR, IV SITE WITH NO S/S INFILTRATION NOTED. G-TUBE FEEDING OF GLUCERNA 1.2 @ 50 ML/HR. G-TUBE IN PLACE, INTACT, FLUSHES WELL. CALL LIGHT WITHIN REACH. HOB KEPT ELEVATED AT 30 DEGREES. BED LOCKED AND IN LOWEST POSITION. ALL NEEDS MET AND ANTICIPATED. WILL ENDORSE TO NEXT SHIFT NURSE FOR CONTINUITY OF CARE.
[2022-04-28] MEDS: ENOXAPARIN SODIUM 30 MG/0.3 ML DISP.SYRIN SQ SCH (17:03)
[2022-04-28] MEDS: DAKINS QUARTER STRENGTH (0.125%) 480 ML BOTTLE TOP SCH (17:05)
[2022-04-28] MEDS: PROSOURCE / PROSTAT (PYXIS) 30 ML UDC GT SCH (17:12)
--- NOTE | 2022-04-28 19:45 | NUR ---
TELE OPENING NOTES RECEIVED PATIENT IN BED ASLEEP BUT RESPONDS TO STIMULI. ON TELE MONITOR WITH HR OF 80. ON OXYGEN @ 5L/MIN VIA N/C CURRENTLY SATING 98%. NO RESPIRATORY DISTRESS NOTED, WITH IV ACCESS ATR HAND SL AND PAO RUNNING NS @ 75 ML/HR, NO S/S INFILTRATION NOTED. WITH G-TUBE FEEDING OF GLUCERNA 1.2 @ 50 ML/HR. SAFETY MEASURES IN PLACED; CALL LIGHT WITHIN REACH. HOB KEPT ELEVATED, BED LOCKED AND IN LOWEST POSITION. WILL CONTINUE TO MONITOR THROUGHOUT THE SHIFT. .
[2022-04-28] MEDS ORDERED: MEROPENEM 500 MG in IV NS 0.9% 50 ML IV SCH (21:00)
[2022-04-28] MEDS ORDERED: MEROPENEM 1 G in IV NS 0.9% 100 ML IV SCH (21:00)
[2022-04-28] MEDS: LATANOPROST EYE DROP 0.005% 2.5 ML BOTTLE EACHEYE SCH (21:21)
[2022-04-28] MEDS: *INSULIN REGULAR(HUMULIN R)HUM 100 UNIT/ML VIAL SQ PRN (21:37)
--- NOTE | 2022-04-29 00:30 | NUR ---
RECEIVED PATIENT FROM NATHALIA HUNTLEY FOR CONTINUATION OF CARE, PATIENT WITH EYES CLOSED, NONVERBAL AT 4LPM VIA NC NO SOB/ACUTE DISTRESS NOTED, WITH STABLE VITAL SINGS, WILL CONTINUE TO MONITOR CLOSELY.
--- NOTE | 2022-04-29 00:30 | NUR ---
RN NOTE REPORT GIVEN TO LV ELLSWORTH FOR CONTINUITY OF CARE. PT ON STABLE CONDITION, VS WNL AT THIS TIME.
[2022-04-29 01:00] VITALS: BP 106/49
[2022-04-29] MEDS: ALBUTEROL HALF STRENGTH 1.25 MG/3 ML VIAL.NEB IH SCH ×4 (01:56→20:07)
[2022-04-29] MEDS: GLUCERNA 1.2 1,000 ML BOTTLE NG PRN (03:52)
[2022-04-29 05:00] VITALS: BP 110/50
[2022-04-29] MEDS: MEROPENEM 1 G in IV NS 0.9% 100 ML IV SCH ×3 (05:13→20:29)
[2022-04-29 06:17] LABS: BASOPHILS # (AUTO) 0.1 K/uL (0.0-0.2); BASOPHILS % (AUTO) 0.5 % (0.0-2.0); EOSINOPHILS % (AUTO) 0.7 % (0.0-6.0); HEMATOCRIT 28 % (33-45); HEMOGLOBIN 8.9 g/dL (11.5-14.8); LYMPHOCYTES % (AUTO) 18.5 % (20.0-44.0); MEAN CORPUSCULAR HGB CONC 32 g/dl (31.0-36.0); MEAN CORPUSCULAR VOLUME 95 fL (82-100); MONOCYTES # (AUTO) 1.6 K/uL (0.1-1.30); MONOCYTES % (AUTO) 7.1 % (2.0-12.0); NEUTROPHILS % (AUTO) 73.2 % (43.0-81.0); PLATELET COUNT (AUTO) 837 K/uL (150-450); RED BLOOD CELL COUNT(AUTO) 2.96 MIL/uL (4.0-5.2); WHITE BLOOD COUNT (AUTO) 21.8 K/uL (4.3-11.0)
[2022-04-29 06:33] LABS: CALCIUM, SERUM 7.8 mg/dL (8.5-10.1); CARBON DIOXIDE 29 mmol/L (21-32); CHLORIDE 108 mmol/L (98-107); CREATININE 0.6 mg/dL (0.6-1.3); GLUCOSE 192 mg/dL (74-106); PHOSPHORUS 2.3 mg/dL (2.5-4.9); POTASSIUM 3.7 mmol/L (3.5-5.1); SODIUM SERUM 144 mmol/L (136-145); UREA NITROGEN, BLOOD 19 mg/dL (7-18)
--- NOTE | 2022-04-29 06:41 | NUR ---
END OF SHIFT, PATIENT IN BED WITH WITH EYES CLOSED, AROUSES TO TACTILE STIMULI, NONVERBAL AT 4LPM VIA NC NO SOB/ACUTE DISTRESS NOTED, WITH STABLE VITAL SINGS, NSR WITH HR 70S AT THIS TIME, IVF AND ANTIBIOTICS ORDERED, BED LOCKED AND IN LOWEST POSITION, BED BATH GIVEN THIS MORNING, TYLENOL GIVEN FOR TEM 100.0, OTHERWISE NO SIGNIFICANT CHANGE IN CONDITION, PLAN TO DO DEBRIDEMENT FOR SACRUM WOUND TODAY, WILL ENDORSE CONTINUITY OF CARE TO ONCOMING NURSE.
--- NOTE | 2022-04-29 07:32 | NUR ---
RN HYPERBARIC OPENING NOTES: RECEIVED PATIENT IN BED, NO RESPIRATORY DISTRESS NOTED AT THIS TIME. PATIENT RESPONDS TO DEEP STIMULI. ON OXYGEN @ 5L/MIN VIA N/C WITH OXYGEN SATURATION OF 99%. PATIENT SHOWS SR ON TELE MONITOR WITH HR OF 73. HAS IV ACCESS ON LEFT UPPER ARM MIDLINE WITH IV FLUID OF NS @ 75 ML/HR, NO S/S INFILTRATION NOTED ON THE IV SITE. G-TUBE FEEDING IN PLACE, NO RESIDUAL AND IS ON G-TUBE FEEDING OF GLUCERNA 1.2 @ 55 ML/HR. PUTNAM CATHETER IN PLACE, DRAINING WITH DARK YELLOW COLORED URINE, NO HEMATURIA AND NO SEDIMENTATION NOTED. HOB KEPT ELEVATED. BED LOCKED AND IN LOWEST POSITION. CALL LIGHT WITHIN REACH, ALL SAFETY MEASURES IN PLACE. WILL CONTINUE TO MONITOR PATIENT THROUGHOUT SHIFT.
[2022-04-29] MEDS: INSULIN REGULAR, HUMAN 100 UNIT/ML 3 ML VIAL SQ PRN ×3 (07:55→16:34)
[2022-04-29] MEDS: BLOOD SUGAR DIAGNOSTIC 1 EACH STRIP VI SCH ×4 (07:56→21:54)
[2022-04-29] MEDS: CLOTRIMAZOLE/BETAMETASONE DIPROPIONATE 15 GM TUBE TP SCH (08:09)
[2022-04-29] MEDS: THERAHONEY GEL 1.5 OZ TUBE TP SCH (08:09)
[2022-04-29] MEDS: BRIMONIDINE TARTRATE OPHT SOLN 5 ML BOTTLE EACHEYE SCH ×2 (08:09→16:07)
[2022-04-29] MEDS: TIMOLOL 0.5% SOLN OPHTH 5 ML BOTTLE EACHEYE SCH ×2 (08:10→16:06)
[2022-04-29] MEDS: Z GUARD REMEDY 4 OZ OINT TP PRN (08:10)
[2022-04-29] MEDS: DAKINS QUARTER STRENGTH (0.125%) 480 ML BOTTLE TOP SCH (08:10)
[2022-04-29] MEDS: NYSTATIN TOP POWDER 15 GM BOTTLE TP SCH (08:11)
[2022-04-29] MEDS: LEVETIRACETAM SOL (5 ML) 100 MG/ML UDC JT SCH ×2 (08:18→20:29)
[2022-04-29] MEDS: VANCOMYCIN 500 MG in IV D5W 100 ML IV SCH ×2 (08:18→21:54)
[2022-04-29] MEDS: VALPROIC ACID 250 MG/5 ML UDC JT SCH ×3 (08:18→16:04)
[2022-04-29] MEDS: LEVOTHYROXINE SODIUM 75 MCG TABLET GT SCH (08:18)
[2022-04-29] MEDS: PANTOPRAZOLE 40 MG/PACK PACK JT SCH (08:18)
[2022-04-29] MEDS: FLUCONAZOLE (100 MG) 100 MG TABLET PO SCH (08:18)
[2022-04-29] MEDS: ACETAMINOPHEN 650 MG/20.3 ML UDC GT SCH (08:18)
[2022-04-29] MEDS: LACTOBACILLUS RHAMNOSUS GG 1 EACH CAP.SPRINK GT SCH (08:18)
[2022-04-29] MEDS: PROSOURCE / PROSTAT (PYXIS) 30 ML UDC GT SCH ×2 (08:19→16:06)
[2022-04-29 09:00] VITALS: BP 110/59
[2022-04-29] MEDS ORDERED: NEUTRA PHOS 1 POWD.PACKET GT ONE (11:00)
[2022-04-29 12:35] LABS: BAND % (MANUAL) 10 % (0.0-5.0); LYMPHOCYTES % (MANUAL) 16 % (16-48); METAMYELOCYTES % 1 % (0-0); MONOCYTES % (MANUAL) 6 % (0-11.0); MYELOCYTES % 1 % (0-0); NEUTROPHILS % (MANUAL) 66 (42-76)
[2022-04-29 13:00] VITALS: BP 101/50
[2022-04-29] MEDS: IV NS 0.9% 1,000 ML IV PRN (14:47)
[2022-04-29] MEDS: ENOXAPARIN SODIUM 30 MG/0.3 ML DISP.SYRIN SQ SCH (16:08)
[2022-04-29 17:00] VITALS: BP 117/53
--- NOTE | 2022-04-29 18:43 | NUR ---
FERMENTER HELPER CLOSING NOTES: PATIENT IN BED ASLEEP BUT RESPONDS TO VOICE AND TACTILE STIMULI. ON SR ON TELE MONITOR WITH HR OF 79. NO RESPIRATORY DISTRESS NOTED THE ENTIRE SHIFT. ON OXYGEN AT 2L/MIN VIA N/C WITH OXYGEN SATURATION OF 99%. IVF OF NS RUNNING @ 75 ML/HR, IV SITE PATENT, NO S/S INFILTRATION NOTED. G-TUBE FEEDING OF GLUCERNA 1.2 @ 55 ML/HR. G-TUBE IN PLACE, INTACT, FLUSHES WELL. HOB KEPT ELEVATED AT ALL TIMES. BED LOCKED AND IN LOWEST POSITION. ALL NEEDS MET AND ANTICIPATED. WILL ENDORSE TO NEXT SHIFT NURSE FOR CONTINUITY OF CARE.
[2022-04-29 21:00] VITALS: BP 122/52
[2022-04-29] MEDS: LATANOPROST EYE DROP 0.005% 2.5 ML BOTTLE EACHEYE SCH (21:54)
[2022-04-29] MEDS: *INSULIN REGULAR(HUMULIN R)HUM 100 UNIT/ML VIAL SQ PRN (21:55)
[2022-04-30] VITALS (7 sets, daily range): BP systolic 104–145; BP diastolic 52–68
[2022-04-30] MEDS: ALBUTEROL HALF STRENGTH 1.25 MG/3 ML VIAL.NEB IH SCH ×4 (00:40→19:49)
[2022-04-30] MEDS: MEROPENEM 1 G in IV NS 0.9% 100 ML IV SCH ×3 (04:25→21:35)
[2022-04-30] MEDS: GLUCERNA 1.2 1,000 ML BOTTLE NG PRN (04:26)
[2022-04-30 05:42] LABS: BASOPHILS # (AUTO) 0.1 K/uL (0.0-0.2); BASOPHILS % (AUTO) 0.4 % (0.0-2.0); EOSINOPHILS % (AUTO) 0.7 % (0.0-6.0); HEMATOCRIT 32 % (33-45); HEMOGLOBIN 9.9 g/dL (11.5-14.8); LYMPHOCYTES # (AUTO) 4.9 K/uL (0.8-4.8); LYMPHOCYTES % (AUTO) 29.9 % (20.0-44.0); MEAN CORPUSCULAR HGB CONC 31 g/dl (31.0-36.0); MEAN CORPUSCULAR VOLUME 95 fL (82-100); MONOCYTES # (AUTO) 1.4 K/uL (0.1-1.30); MONOCYTES % (AUTO) 8.5 % (2.0-12.0); NEUTROPHILS % (AUTO) 60.5 % (43.0-81.0); PLATELET COUNT (AUTO) 882 K/uL (150-450); RED BLOOD CELL COUNT(AUTO) 3.37 MIL/uL (4.0-5.2); WHITE BLOOD COUNT (AUTO) 16.5 K/uL (4.3-11.0)
[2022-04-30 06:10] LABS: CALCIUM, SERUM 8.2 mg/dL (8.5-10.1); CREATININE 0.6 mg/dL (0.6-1.3); PHOSPHORUS 2.2 mg/dL (2.5-4.9); POTASSIUM 3.9 mmol/L (3.5-5.1)
--- NOTE | 2022-04-30 06:23 | NUR ---
RT NOTE PATIENT CURRENTLY ON 6LPM NASAL CANNULA. SPO2 88-93%. SIMPLE MASK AND NONREBREATHER MASK BEDSIDE. PATIENT TOLERATED TX WELL ALL NIGHT.
--- NOTE | 2022-04-30 06:50 | NUR ---
END OF SHIFT, PATIENT ASLEEP, OPEN EYES SPONTANEOUSLY, AT 2LPM VIA NC, NO S/S OF ANY SOB/ACUTE DISTRESS, NO SIGNIFICANT CHANGE IN CONDITION DURING THE NIGHT, AFEBRILE, WOUND CARE DONE, BED IN LOWEST POSITION, CALL LIGHT WITHIN REACH, SIDE RAILS UP X3, WILL ENDORSE CONTINUITY OF CARE TO ONCOMING NURSE.
[2022-04-30] MEDS: BLOOD SUGAR DIAGNOSTIC 1 EACH STRIP VI SCH ×4 (08:03→23:54)
[2022-04-30] MEDS ORDERED: LIDOCAINE 2%-EPI 1:200,000 20 ML VIAL IJ ONE (09:00)
[2022-04-30] MEDS: FLUCONAZOLE (100 MG) 100 MG TABLET PO SCH (09:34)
[2022-04-30] MEDS: LACTOBACILLUS RHAMNOSUS GG 1 EACH CAP.SPRINK GT SCH (09:35)
[2022-04-30] MEDS: LEVETIRACETAM SOL (5 ML) 100 MG/ML UDC JT SCH ×2 (09:35→21:35)
[2022-04-30] MEDS: ACETAMINOPHEN 650 MG/20.3 ML UDC GT SCH (09:35)
[2022-04-30] MEDS: PANTOPRAZOLE 40 MG/PACK PACK JT SCH (09:35)
[2022-04-30] MEDS: PROSOURCE / PROSTAT (PYXIS) 30 ML UDC GT SCH ×2 (09:35→16:10)
[2022-04-30] MEDS: LEVOTHYROXINE SODIUM 75 MCG TABLET GT SCH (09:35)
[2022-04-30] MEDS: VALPROIC ACID 250 MG/5 ML UDC JT SCH ×3 (09:35→16:08)
[2022-04-30] MEDS: VANCOMYCIN 500 MG in IV D5W 100 ML IV SCH ×2 (09:38→21:35)
[2022-04-30] MEDS: DAKINS QUARTER STRENGTH (0.125%) 480 ML BOTTLE TOP SCH (09:52)
[2022-04-30] MEDS: THERAHONEY GEL 1.5 OZ TUBE TP SCH (09:52)
[2022-04-30] MEDS: Z GUARD REMEDY 4 OZ OINT TP PRN (09:52)
[2022-04-30] MEDS: TIMOLOL 0.5% SOLN OPHTH 5 ML BOTTLE EACHEYE SCH ×2 (09:53→16:10)
[2022-04-30] MEDS: BRIMONIDINE TARTRATE OPHT SOLN 5 ML BOTTLE EACHEYE SCH ×2 (09:53→16:11)
[2022-04-30] MEDS: CLOTRIMAZOLE/BETAMETASONE DIPROPIONATE 15 GM TUBE TP SCH (09:54)
[2022-04-30] MEDS: NYSTATIN TOP POWDER 15 GM BOTTLE TP SCH (09:55)
[2022-04-30] MEDS: NEUTRA PHOS 1 POWD.PACKET GT SCH ×2 (10:06→16:08)
[2022-04-30] MEDS: INSULIN REGULAR, HUMAN 100 UNIT/ML 3 ML VIAL SQ PRN (12:00)
[2022-04-30] MEDS ORDERED: NEUTRA PHOS 1 POWD.PACKET GT ONE (13:00)
[2022-04-30] MEDS: ENOXAPARIN SODIUM 30 MG/0.3 ML DISP.SYRIN SQ SCH (16:09)
--- NOTE | 2022-04-30 18:35 | NUR ---
RN Closing Report Patient non-verbal, not able to express her own concerns. Using FLACC pts pain was 0/10, suction patients mouth as needed to help her clear secretions, clear, no visible blood. . Patient remained safe throughout shift. No signs or symptoms of distress. All safety precautions taken, call light and table within reach. Patients called and requested status on patients health. Will endorse to third shift lieutenant for continuity of care.
[2022-04-30 21:25] LABS: BAND % (MANUAL) 1 % (0.0-5.0); BASOPHILS % (MANUAL) 1 % (0.0-2.0); LYMPHOCYTES % (MANUAL) 24 % (16-48); MONOCYTES % (MANUAL) 7 % (0-11.0); NEUTROPHILS % (MANUAL) 67 (42-76)
[2022-04-30] MEDS: LATANOPROST EYE DROP 0.005% 2.5 ML BOTTLE EACHEYE SCH (21:33)
[2022-04-30] MEDS: MUPIROCIN OINT 2% 22 GM TUBE NS SCH (21:36)
[2022-04-30] MEDS: *INSULIN REGULAR(HUMULIN R)HUM 100 UNIT/ML VIAL SQ PRN (23:55)
[2022-05-01] MEDS: ALBUTEROL HALF STRENGTH 1.25 MG/3 ML VIAL.NEB IH SCH ×4 (02:07→19:51)
[2022-05-01] MEDS: MEROPENEM 1 G in IV NS 0.9% 100 ML IV SCH ×3 (04:42→20:44)
[2022-05-01 07:02] LABS: BASOPHILS # (AUTO) 0.1 K/uL (0.0-0.2); BASOPHILS % (AUTO) 0.4 % (0.0-2.0); HEMATOCRIT 30 % (33-45); HEMOGLOBIN 9.3 g/dL (11.5-14.8); LYMPHOCYTES # (AUTO) 7.7 K/uL (0.8-4.8); LYMPHOCYTES % (AUTO) 32.1 % (20.0-44.0); MEAN CORPUSCULAR HGB CONC 31 g/dl (31.0-36.0); MEAN CORPUSCULAR VOLUME 94 fL (82-100); MONOCYTES # (AUTO) 2.7 K/uL (0.1-1.30); MONOCYTES % (AUTO) 11.4 % (2.0-12.0); NEUTROPHILS # (AUTO) 13.3 K/uL (1.8-8.9); NEUTROPHILS % (AUTO) 55.1 % (43.0-81.0); PLATELET COUNT (AUTO) 827 K/uL (150-450); RED BLOOD CELL COUNT(AUTO) 3.17 MIL/uL (4.0-5.2); WHITE BLOOD COUNT (AUTO) 24.1 K/uL (4.3-11.0)
--- NOTE | 2022-05-01 07:17 | NUR ---
RN OPENING NOTE PT REMAINS IN BED, OPENS EYES, NON-VERBAL. PT ON 2L NC WITH O2SAT RANGING FROM 96%-98%; NO S/S OF RESP DISTRESS, NO SOB OR COUGH, NON-LABORED AND EQUAL BREATHING; APPEARS COMFORTABLE OVERALL. HAD INCREASED TEMPERATURE, PROVIDED PT WITH COOLING MEASURES; ALL OTHER VITAL SIGNS STABLE THROUGHOUT THE NIGHT WITH NO SIGNIFICANT CHANGES. GTD C/D/I WITH GLUCERNA AT 55 ML/HR; NO RESIDUAL NOTED. PUTNAM INTACT AND PATENT, DRAINING CLOUDY AND YELLOW URINE. IV ACCESS ON RIGHT HAND 20G AND PAO MIDLINE INTACT AND PATENT; NS TKO. WOUNDS CLEANSED AND NEW DRESSING APPLIED. ALL DUE MEDS ADMINISTERED DURING THE NIGHT. BED IN LOWEST POSITION, CALL LIGHT WITHIN REACH, SIDE RAILS UP X3. [facility] TO CONT[facility]UE CARE. Addendum: 05/01/22 at 0721 by PRINCESS KENDRICK HUNTLEY MS HUNTLEY CLOSING NOTE
--- NOTE | 2022-05-01 07:20 | NUR ---
MS RN OPENING NOTE RECEIVED PT IN BED, OPENS EYES, NON-VERBAL. PT ON 2 L NC O2 SAT AT 97%. NO SIGNS OF PAIN OR DISCOMOFRT. PT ON GLUCERNA AT 55 ML/HR. NO RESIDUAL VOLUME NOTED. GTUBE INTACT. PUTNAM CATHETHER DRAINING YELLOW COLOR TO GRAVITY. IV ACCESS ON R HAND 20 G AND L UA MIDLINE INTACT, PATENT. PT HAS GENERALIZED EDEMA ON UPPER EXTREMITIES. ALL SAFETY MEASURES IN PLACE. CALL LIGHT WITHIN REACH, BED LOCKED AT LOWEST POSITION. SIDE RAILS UP X2.
[2022-05-01 07:34] LABS: CALCIUM, SERUM 8.1 mg/dL (8.5-10.1); CREATININE 0.6 mg/dL (0.6-1.3); MAGNESIUM 1.9 mg/dL (1.8-2.4); PHOSPHORUS 2.9 mg/dL (2.5-4.9); POTASSIUM 4.2 mmol/L (3.5-5.1)
[2022-05-01] MEDS: BLOOD SUGAR DIAGNOSTIC 1 EACH STRIP VI SCH ×4 (07:44→21:17)
[2022-05-01] MEDS: INSULIN REGULAR, HUMAN 100 UNIT/ML 3 ML VIAL SQ PRN ×2 (07:51→12:29)
[2022-05-01] MEDS: PROSOURCE / PROSTAT (PYXIS) 30 ML UDC GT SCH ×2 (09:00→17:00)
[2022-05-01] MEDS: LACTOBACILLUS RHAMNOSUS GG 1 EACH CAP.SPRINK GT SCH (10:50)
[2022-05-01] MEDS: VALPROIC ACID 250 MG/5 ML UDC JT SCH ×3 (10:50→16:12)
[2022-05-01] MEDS: LEVETIRACETAM SOL (5 ML) 100 MG/ML UDC JT SCH ×2 (10:50→20:44)
[2022-05-01] MEDS: VANCOMYCIN 500 MG in IV D5W 100 ML IV SCH ×2 (10:50→20:44)
[2022-05-01] MEDS: ACETAMINOPHEN 650 MG/20.3 ML UDC GT SCH (10:50)
[2022-05-01] MEDS: LEVOTHYROXINE SODIUM 75 MCG TABLET GT SCH (10:50)
[2022-05-01] MEDS: MUPIROCIN OINT 2% 22 GM TUBE NS SCH ×2 (10:51→20:45)
[2022-05-01] MEDS: PANTOPRAZOLE 40 MG/PACK PACK JT SCH (10:51)
[2022-05-01] MEDS: BRIMONIDINE TARTRATE OPHT SOLN 5 ML BOTTLE EACHEYE SCH ×2 (11:15→16:21)
[2022-05-01] MEDS: DAKINS QUARTER STRENGTH (0.125%) 480 ML BOTTLE TOP SCH (11:15)
[2022-05-01] MEDS: CLOTRIMAZOLE/BETAMETASONE DIPROPIONATE 15 GM TUBE TP SCH (11:15)
[2022-05-01] MEDS: THERAHONEY GEL 1.5 OZ TUBE TP SCH (11:17)
[2022-05-01] MEDS: GLUCERNA 1.2 1,000 ML BOTTLE NG PRN (12:16)
[2022-05-01] MEDS: NYSTATIN TOP POWDER 15 GM BOTTLE TP SCH (12:30)
[2022-05-01] MEDS: FLUCONAZOLE (100 MG) 100 MG TABLET PO SCH (12:30)
[2022-05-01] MEDS: TIMOLOL 0.5% SOLN OPHTH 5 ML BOTTLE EACHEYE SCH ×2 (12:46→16:22)
--- NOTE | 2022-05-01 15:52 | NUR ---
RT ABG done late due to confirmation of ABG status. ABG done- not critical.
--- NOTE | 2022-05-01 16:00 | NUR ---
MS RN NOTE NOTIFIED DR. DSOUZA THAT PT HAS DIARRHEA AND IF OKAY TO HOLD TUBE FEEDING. SAID OK.
[2022-05-01] MEDS: ENOXAPARIN SODIUM 30 MG/0.3 ML DISP.SYRIN SQ SCH (16:11)
--- NOTE | 2022-05-01 17:00 | NUR ---
RN NOTE NOTIFIED DR. DSOUZA THAT PT DAUGHTER WOULD LIKE TO SPEAK WITH HER REGARDING PT CONDITION
[2022-05-01 18:50] LABS: BAND % (MANUAL) 2 % (0.0-5.0); LYMPHOCYTES % (MANUAL) 24 % (16-48); MONOCYTES % (MANUAL) 15 % (0-11.0); NEUTROPHILS % (MANUAL) 59 (42-76)
[2022-05-01 18:54] LABS: ABG BASE EXCESS 3.4 mmol/L; ABG PCO2 37.4 mmHg (35.0-45.0); ABG PH 7.477 (7.350-7.450); AaDO2 86.5 mmHg; MetHb 0.1 % (0.0-1.5); O2Hb 93.9 % (94.0-97.0); SITE, ABG Right Radial
[2022-05-01 18:55] LABS: ABG BASE EXCESS 8.6 mmol/L; ABG OXYGEN SATURATION 95.2 % (92.0-98.5); ABG PCO2 44.4 mmHg (35.0-45.0); ABG PH 7.488 (7.350-7.450); ABG PO2 72.2 mmHg (75.0-100.0); AaDO2 161.9 mmHg; COHb 0.3 % (0.5-1.5); MetHb 0.2 % (0.0-1.5); O2Hb 94.7 % (94.0-97.0); SITE, ABG Right Radial; VENT MODE, BG NC 5 LPM
--- NOTE | 2022-05-01 20:04 | NUR ---
MS RN CLOSING NOTE PT IN BED, NONVERBAL, OPENS EYES. PT ON 2-6 L NC SATURATING AT ABOVE 92%. NO SIGNS OF PAIN OR DISCOMFORT. PT ON GLUCERNA 55 ML/HR. NO RESIDUAL VOLUME NOTED. IV ACCESS ON R HAND 20 GUAGE. L UA MIDLINE INTACT. PATENT. PT HAS GENERALIZED EDEMA ON UPPER EXTREMITIES.KEPT EXTREMITIES ELEVATED. KEPT WOUND CLEAN AND DRY. ALL SAFETY MEASURES IN PLACE. CALL LIGHT WITHIN REACH, BED LOCKED AT LOWEST POSITION. SIDE RAILS UP X2.ENDORSED TO HELMET HAT PUNCHER RN FOR CONTINUTITY OF CARE
[2022-05-01] MEDS: LATANOPROST EYE DROP 0.005% 2.5 ML BOTTLE EACHEYE SCH (20:45)
--- NOTE | 2022-05-01 21:00 | NUR ---
2100 ETHYLBENZENE OXIDIZER REJI MADE AWARE OF ABG AND CXR RESULTS WITH ORDER TO UPGRADE PATIENT TO TELEMETRY STATUS AND PUT ON CONT. PULSE OXIMETRY MONITOR, AND TO CONT. SUCTIONING AGGRESSIVELY. ORDERS NOTED, RT MADE AWARE.
[2022-05-02] MEDS: ALBUTEROL HALF STRENGTH 1.25 MG/3 ML VIAL.NEB IH SCH ×4 (02:04→20:24)
[2022-05-02] MEDS: MEROPENEM 1 G in IV NS 0.9% 100 ML IV SCH ×3 (05:00→22:26)
[2022-05-02 05:58] LABS: ABG BASE EXCESS 9.1 mmol/L; ABG OXYGEN SATURATION 92.6 % (92.0-98.5); ABG PCO2 41.9 mmHg (35.0-45.0); ABG PH 7.513 (7.350-7.450); ABG PO2 64.4 mmHg (75.0-100.0); AaDO2 85.8 mmHg; COHb 0.3 % (0.5-1.5); O2Hb 92.3 % (94.0-97.0); SITE, ABG Right Radial; VENT MODE, BG 2LNC
[2022-05-02] MEDS: BLOOD SUGAR DIAGNOSTIC 1 EACH STRIP VI SCH ×4 (07:31→21:25)
[2022-05-02 07:34] LABS: BASOPHILS # (AUTO) 0.1 K/uL (0.0-0.2); BASOPHILS % (AUTO) 0.8 % (0.0-2.0); EOSINOPHILS % (AUTO) 0.8 % (0.0-6.0); HEMATOCRIT 31 % (33-45); LYMPHOCYTES # (AUTO) 5.5 K/uL (0.8-4.8); LYMPHOCYTES % (AUTO) 31.4 % (20.0-44.0); MEAN CORPUSCULAR HGB CONC 32 g/dl (31.0-36.0); MEAN CORPUSCULAR VOLUME 92 fL (82-100); MONOCYTES # (AUTO) 1.8 K/uL (0.1-1.30); MONOCYTES % (AUTO) 10.1 % (2.0-12.0); NEUTROPHILS # (AUTO) 9.9 K/uL (1.8-8.9); NEUTROPHILS % (AUTO) 56.9 % (43.0-81.0); PLATELET COUNT (AUTO) 881 K/uL (150-450); RED BLOOD CELL COUNT(AUTO) 3.38 MIL/uL (4.0-5.2); WHITE BLOOD COUNT (AUTO) 17.4 K/uL (4.3-11.0)
[2022-05-02] MEDS: INSULIN REGULAR, HUMAN 100 UNIT/ML 3 ML VIAL SQ PRN ×3 (07:39→18:00)
--- NOTE | 2022-05-02 07:52 | NUR ---
MS RN OPENING NOTE RECEIVED PT IN BED, OPENS EYES, NON-VERBAL. PT ON 2 L NC O2 SAT AT 97%. NO SIGNS OF PAIN OR DISCOMOFRT. PT ON GLUCERNA AT 55 ML/HR. NO RESIDUAL VOLUME NOTED. GTUBE INTACT. PUTNAM CATHETHER DRAINING YELLOW COLOR TO GRAVITY. IV ACCESS ON R HAND 20 G AND L UA MIDLINE INTACT, PATENT, FLUSHING WELL. PT HAS GENERALIZED EDEMA ON UPPER EXTREMITIES. KEEPING ARMS ELEVATED AT ALL TIMES. ALL SAFETY MEASURES IN PLACE. CALL LIGHT WITHIN REACH, BED LOCKED AT LOWEST POSITION. SIDE RAILS UP X2.
[2022-05-02 08:00] VITALS: BP 174/91
[2022-05-02 08:22] LABS: CALCIUM, SERUM 8.4 mg/dL (8.5-10.1); CARBON DIOXIDE 34 mmol/L (21-32); CHLORIDE 102 mmol/L (98-107); CREATININE 0.4 mg/dL (0.6-1.3); GLUCOSE 251 mg/dL (74-106); MAGNESIUM 1.9 mg/dL (1.8-2.4); PHOSPHORUS 2.8 mg/dL (2.5-4.9); POTASSIUM 3.8 mmol/L (3.5-5.1); SODIUM SERUM 142 mmol/L (136-145); UREA NITROGEN, BLOOD 18 mg/dL (7-18)
--- NOTE | 2022-05-02 08:43 | NUR ---
rn note pt generalized edema on upper extremities. notified if lasix can be ordered. ordered 40 mg iv push. orders noted and carried out
[2022-05-02] MEDS: PROSOURCE / PROSTAT (PYXIS) 30 ML UDC GT SCH ×2 (09:27→17:00)
[2022-05-02] MEDS: LEVOTHYROXINE SODIUM 75 MCG TABLET GT SCH (09:27)
[2022-05-02] MEDS: ACETAMINOPHEN 650 MG/20.3 ML UDC GT SCH (09:27)
[2022-05-02] MEDS: VANCOMYCIN 500 MG in IV D5W 100 ML IV SCH ×2 (09:27→21:16)
[2022-05-02] MEDS: LACTOBACILLUS RHAMNOSUS GG 1 EACH CAP.SPRINK GT SCH (09:27)
[2022-05-02] MEDS: VALPROIC ACID 250 MG/5 ML UDC JT SCH ×3 (09:28→16:39)
[2022-05-02] MEDS: FLUCONAZOLE (100 MG) 100 MG TABLET PO SCH (09:29)
[2022-05-02] MEDS: MUPIROCIN OINT 2% 22 GM TUBE NS SCH ×2 (11:24→21:17)
[2022-05-02] MEDS: BRIMONIDINE TARTRATE OPHT SOLN 5 ML BOTTLE EACHEYE SCH ×2 (11:24→17:12)
[2022-05-02] MEDS: TIMOLOL 0.5% SOLN OPHTH 5 ML BOTTLE EACHEYE SCH ×2 (11:24→17:12)
[2022-05-02] MEDS: DAKINS QUARTER STRENGTH (0.125%) 480 ML BOTTLE TOP SCH (11:25)
[2022-05-02] MEDS: PANTOPRAZOLE 40 MG/PACK PACK JT SCH (11:28)
[2022-05-02] MEDS: LEVETIRACETAM SOL (5 ML) 100 MG/ML UDC JT SCH ×2 (11:28→21:14)
[2022-05-02] MEDS: NYSTATIN TOP POWDER 15 GM BOTTLE TP SCH (11:37)
[2022-05-02] MEDS: THERAHONEY GEL 1.5 OZ TUBE TP SCH (11:37)
[2022-05-02] MEDS: CLOTRIMAZOLE/BETAMETASONE DIPROPIONATE 15 GM TUBE TP SCH (11:37)
[2022-05-02 12:00] VITALS: BP 141/74
[2022-05-02] MEDS ORDERED: FUROSEMIDE 40 MG/4 ML VIAL IV ONE (13:00)
--- NOTE | 2022-05-02 15:52 | NUR ---
rn note ordered duplex venous ultrasound on upper extremities
[2022-05-02 16:00] VITALS: BP 141/68
[2022-05-02] MEDS: ENOXAPARIN SODIUM 30 MG/0.3 ML DISP.SYRIN SQ SCH (16:41)
--- NOTE | 2022-05-02 19:20 | NUR ---
RN NOTE PATIENT IN BED, OBTUNDED, IN NO ACUTE DISTRESS, BREATHIGN UNLABORED, SATURATION AT 96% ON 2L VIA NC, SR ON THE MONITOR, HR IS 83. PAO MIDLINE AND R HAND 22G PATENT AND FLUSHING WELL, SALINE LOCKED. JTUBE IN PLACE, POSITIVE PLACEMENT NOTED, NO RESIDUAL, WITH GLUCERNA AT 55 ML/HR. SAFETY MEASURES IN PLACE, HOB ELEVATED. WILL CONT TO MONITOR AND REASSESS.
--- NOTE | 2022-05-02 19:44 | NUR ---
MS RN CLOSING NOTE PT IN BED, OPENS EYES, NON-VERBAL. PT HIGH FOWLERS POSITION TO PROMOTE BREATHING AND PREVENT ASPIRATION AND DESATURATION. PT ON 2 L NC O2 SAT AT 100%. NO SIGNS OF PAIN OR DISCOMFORT. PT ON GLUCERNA AT 55 ML/HR. NO RESIDUAL VOLUME NOTED. GTUBE INTACT,PATENT AND FLUSHING WELL. PT HAS GENERALIZED EDEMA ON UPPER EXTREMITIES.KEPT ARMS ELEVATED. PUTNAM CATHETHER DRAINING YELLOW COLOR TO GRAVITY. IV ACCESS ON R HAND 20 G AND L UA MIDLINE INTACT, PATENT, FLUSHING WELL. ALL SAFETY MEASURES IN PLACE. CALL LIGHT WITHIN REACH, BED LOCKED AT LOWEST POSITION. SIDE RAILS UP X2.ENDORSED TO ADMISSIONS SPECIALIST RN.
[2022-05-02 20:00] VITALS: BP 111/69
[2022-05-02] MEDS: LATANOPROST EYE DROP 0.005% 2.5 ML BOTTLE EACHEYE SCH (21:15)
[2022-05-02] MEDS: *INSULIN REGULAR(HUMULIN R)HUM 100 UNIT/ML VIAL SQ PRN (21:26)
--- NOTE | 2022-05-02 22:10 | NUR ---
PRELIMINARY FINDING SHOWED POSITIVE FOR DVT ON LEFT BRACHIAL VEIN. INFORMED RN JEFFY OF INITIAL RESULT.
--- NOTE | 2022-05-02 22:46 | NUR ---
RN NOTE Venous doppler resulted: Occlusive thrombus in the left brachial vein. Dr Decker was notified, stated she will place orders.
[2022-05-03] VITALS: BP 139/74
[2022-05-03] MEDS: ALBUTEROL HALF STRENGTH 1.25 MG/3 ML VIAL.NEB IH SCH ×4 (01:43→20:00)
[2022-05-03] MEDS ORDERED: DEXTROSE 50%-WATER 50 ML DISP.SYRIN IV PRN (03:30)
[2022-05-03 04:00] VITALS: BP 141/74
[2022-05-03] MEDS: MEROPENEM 1 G in IV NS 0.9% 100 ML IV SCH ×3 (04:45→22:24)
[2022-05-03] MEDS: BLOOD SUGAR DIAGNOSTIC 1 EACH STRIP IN SCH ×3 (05:33→18:32)
[2022-05-03] MEDS: INSULIN REGULAR, HUMAN 100 UNIT/ML 3 ML VIAL SQ PRN ×3 (05:36→18:26)
[2022-05-03] MEDS: GLUCERNA 1.2 1,000 ML BOTTLE NG PRN (06:23)
[2022-05-03 07:25] LABS: BASOPHILS # (AUTO) 0.2 K/uL (0.0-0.2); BASOPHILS % (AUTO) 1.2 % (0.0-2.0); EOSINOPHILS % (AUTO) 0.9 % (0.0-6.0); HEMATOCRIT 30 % (33-45); HEMOGLOBIN 9.4 g/dL (11.5-14.8); LYMPHOCYTES # (AUTO) 5.1 K/uL (0.8-4.8); LYMPHOCYTES % (AUTO) 37.4 % (20.0-44.0); MEAN CORPUSCULAR HGB CONC 32 g/dl (31.0-36.0); MEAN CORPUSCULAR VOLUME 94 fL (82-100); MONOCYTES # (AUTO) 1.5 K/uL (0.1-1.30); MONOCYTES % (AUTO) 10.7 % (2.0-12.0); NEUTROPHILS # (AUTO) 6.8 K/uL (1.8-8.9); NEUTROPHILS % (AUTO) 49.8 % (43.0-81.0); PLATELET COUNT (AUTO) 813 K/uL (150-450); RED BLOOD CELL COUNT(AUTO) 3.18 MIL/uL (4.0-5.2); WHITE BLOOD COUNT (AUTO) 13.8 K/uL (4.3-11.0)
[2022-05-03 07:31] LABS: CALCIUM, SERUM 8.3 mg/dL (8.5-10.1); CREATININE 0.6 mg/dL (0.6-1.3); MAGNESIUM 2.1 mg/dL (1.8-2.4); PHOSPHORUS 2.6 mg/dL (2.5-4.9); POTASSIUM 3.8 mmol/L (3.5-5.1)
[2022-05-03 08:00] VITALS: BP 150/56
[2022-05-03] MEDS: VANCOMYCIN 500 MG in IV D5W 100 ML IV SCH ×2 (08:56→21:06)
[2022-05-03] MEDS: DAKINS QUARTER STRENGTH (0.125%) 480 ML BOTTLE TOP SCH (08:57)
[2022-05-03] MEDS: ACETAMINOPHEN 650 MG/20.3 ML UDC GT SCH (08:57)
[2022-05-03] MEDS: PANTOPRAZOLE 40 MG/PACK PACK JT SCH (08:58)
[2022-05-03] MEDS: LEVOTHYROXINE SODIUM 75 MCG TABLET GT SCH (08:58)
[2022-05-03] MEDS: FLUCONAZOLE (100 MG) 100 MG TABLET PO SCH (08:58)
[2022-05-03] MEDS: LACTOBACILLUS RHAMNOSUS GG 1 EACH CAP.SPRINK GT SCH (08:58)
[2022-05-03] MEDS: LEVETIRACETAM SOL (5 ML) 100 MG/ML UDC JT SCH ×2 (08:58→21:06)
[2022-05-03] MEDS: VALPROIC ACID 250 MG/5 ML UDC JT SCH ×3 (08:58→16:10)
[2022-05-03] MEDS: PROSOURCE / PROSTAT (PYXIS) 30 ML UDC GT SCH ×2 (09:00→16:11)
[2022-05-03] MEDS: NYSTATIN TOP POWDER 15 GM BOTTLE TP SCH (09:01)
[2022-05-03] MEDS: BRIMONIDINE TARTRATE OPHT SOLN 5 ML BOTTLE EACHEYE SCH ×2 (09:01→16:11)
[2022-05-03] MEDS: CLOTRIMAZOLE/BETAMETASONE DIPROPIONATE 15 GM TUBE TP SCH (09:02)
[2022-05-03] MEDS: MUPIROCIN OINT 2% 22 GM TUBE NS SCH ×2 (09:03→21:12)
[2022-05-03] MEDS: THERAHONEY GEL 1.5 OZ TUBE TP SCH (09:04)
[2022-05-03] MEDS: TIMOLOL 0.5% SOLN OPHTH 5 ML BOTTLE EACHEYE SCH ×2 (09:14→16:11)
[2022-05-03 11:37] LABS: ABG BASE EXCESS 10.3 mmol/L; ABG OXYGEN SATURATION 97.6 % (92.0-98.5); ABG PCO2 47.8 mmHg (35.0-45.0); ABG PH 7.482 (7.350-7.450); ABG PO2 103.6 mmHg (75.0-100.0); AaDO2 68.6 mmHg; COHb 0.3 % (0.5-1.5); MetHb 0.1 % (0.0-1.5); O2Hb 97.2 % (94.0-97.0); SITE, ABG Right Radial; VENT MODE, BG Nasal Cannula
[2022-05-03 12:00] VITALS: BP 157/77
[2022-05-03] MEDS: ENOXAPARIN SODIUM 30 MG/0.3 ML DISP.SYRIN SQ SCH (16:14)
--- NOTE | 2022-05-03 19:30 | NUR ---
MS RN OPENING NOTES RECEIVED PATIENT IN BED ASLEEP. FACIAL GRIMACE ON DEEP PAIN. ON O2 AT 2LPM VIA NASAL CANULA. BREATHING EVEN AND NON-LABORED. NOT IN APPARENT DISTRESS. NO PAIN OR DISCOMFORT NOTED. HAS IV ACCESS ON: RIGHT WRIST #20G AND SALINE LOCKED, AND LEFT UPPER ARM MIDLINE WITH NS RUNNING TKO. NO S/S OF INFILTRATION NOTED. HAS J-TUBE FEEDING OF GLUCERNA RUNNING AT 55 ML/HR. HAS INDWELLING PUTNAM CATHETER DRAINING CLEAR HERACLIO URINE TO BAG BY GRAVITY. HAS EDEMA ON BILATERAL UPPER AND LOWER EXTREMITIES. SAFETY PRECAUTIONS IN PLACE: BED LOW AND LOCKED, BED ALARM ON, SIDE RAILS UP X2, CALL LIGHT WITHIN REACH. WILL CONTINUE POC.
[2022-05-03 20:00] VITALS: BP 121/65
[2022-05-03] MEDS: ENOXAPARIN SODIUM 60 MG/0.6 ML DISP.SYRIN SQ SCH (21:11)
[2022-05-03] MEDS: LATANOPROST EYE DROP 0.005% 2.5 ML BOTTLE EACHEYE SCH (21:19)
[2022-05-04] MEDS: BLOOD SUGAR DIAGNOSTIC 1 EACH STRIP IN SCH ×4 (00:03→17:06)
[2022-05-04] MEDS: INSULIN REGULAR, HUMAN 100 UNIT/ML 3 ML VIAL SQ PRN ×3 (00:07→12:55)
[2022-05-04] MEDS: ALBUTEROL HALF STRENGTH 1.25 MG/3 ML VIAL.NEB IH SCH ×4 (02:14→19:38)
[2022-05-04 04:00] VITALS: BP 115/80
[2022-05-04] MEDS: MEROPENEM 1 G in IV NS 0.9% 100 ML IV SCH ×3 (06:00→20:45)
[2022-05-04] MEDS: GLUCERNA 1.2 1,000 ML BOTTLE NG PRN (06:09)
--- NOTE | 2022-05-04 06:45 | NUR ---
MS RN NOTES CT HEAD NEGATIVE FOR SUBDURAL HEMORRHAGE.
--- NOTE | 2022-05-04 07:15 | NUR ---
MS RN CLOSING NOTES PATIENT IN BED AWAKE, OBTUNDED. NO SOB OR NOTED, ON O2 AT 2LPM VIA NASAL CANULA. NOT IN ACUTE DISTRESS. AFEBRILE. HAS IV ACCESS ON: RIGHT WRIST #20G AND SALINE LOCKED, AND LEFT UPPER ARM MIDLINE WITH IVPB MERREM RUNNING AT 33.33 ML/HR. INTACT, PATENT AND FLUSHING. NO RESIDUAL NOTED FROM J-TUBE. URINE OUTPUT OF 500 ML. ALL DUE MEDS GIVEN AND NEEDS ATTENDED. HOB ELEVATED AT ALL TIMES. SAFETY PRECAUTIONS MAINTAINED. WILL ENDORSE TO NEXT SHIFT FOR АЛЕКСАНДР.
[2022-05-04 07:26] LABS: IRON, SERUM 19 ug/dl (50-175); TOTAL IRON BINDING CAPACITY 187 ug/dl (250-450)
[2022-05-04 07:33] LABS: BASOPHILS # (AUTO) 0.2 K/uL (0.0-0.2); EOSINOPHILS % (AUTO) 0.9 % (0.0-6.0); HEMATOCRIT 30 % (33-45); HEMOGLOBIN 9.6 g/dL (11.5-14.8); LYMPHOCYTES % (AUTO) 49.6 % (20.0-44.0); MEAN CORPUSCULAR HGB CONC 32 g/dl (31.0-36.0); MEAN CORPUSCULAR VOLUME 93 fL (82-100); MONOCYTES # (AUTO) 1.4 K/uL (0.1-1.30); MONOCYTES % (AUTO) 8.6 % (2.0-12.0); NEUTROPHILS # (AUTO) 6.5 K/uL (1.8-8.9); NEUTROPHILS % (AUTO) 39.9 % (43.0-81.0); PLATELET COUNT (AUTO) 836 K/uL (150-450); RED BLOOD CELL COUNT(AUTO) 3.24 MIL/uL (4.0-5.2); WHITE BLOOD COUNT (AUTO) 16.2 K/uL (4.3-11.0)
[2022-05-04 07:40] LABS: FERRITIN 260 ng/mL (8-388); THYROID STIMULATING HORMONE 4.782 uIU/mL (0.358-3.74)
--- NOTE | 2022-05-04 07:43 | NUR ---
MS RN OPENING NOTES RECEIVED PATIENT IN BED AWAKE, ON O2 AT 2LPM VIA NASAL CANULA. BREATHING EVEN AND NON-LABORED. NOT IN APPARENT DISTRESS. NO PAIN OR DISCOMFORT NOTED. HAS IV ACCESS ON: RIGHT WRIST #20G AND SALINE LOCKED, AND LEFT UPPER ARM MIDLINE WITH NS RUNNING TKO. NO S/S OF INFILTRATION NOTED. HAS J-TUBE FEEDING OF GLUCERNA RUNNING AT 55 ML/HR. HAS INDWELLING PUTNAM CATHETER DRAINING CLEAR HERACLIO URINE TO BAG BY GRAVITY. HAS EDEMA ON BILATERAL UPPER AND LOWER EXTREMITIES. SAFETY PRECAUTIONS IN PLACE: BED LOW AND LOCKED, BED ALARM ON, SIDE RAILS UP X2, CALL LIGHT WITHIN REACH. WILL CONTINUE PLAN OF CARE.
[2022-05-04] MEDS: VALPROIC ACID 250 MG/5 ML UDC JT SCH ×3 (08:26→16:04)
[2022-05-04] MEDS: LEVETIRACETAM SOL (5 ML) 100 MG/ML UDC JT SCH ×2 (08:26→20:59)
[2022-05-04] MEDS: ACETAMINOPHEN 650 MG/20.3 ML UDC GT SCH (08:26)
[2022-05-04] MEDS: FLUCONAZOLE (100 MG) 100 MG TABLET PO SCH (08:26)
[2022-05-04] MEDS: LACTOBACILLUS RHAMNOSUS GG 1 EACH CAP.SPRINK GT SCH (08:26)
[2022-05-04] MEDS: PANTOPRAZOLE 40 MG/PACK PACK JT SCH (08:27)
[2022-05-04] MEDS: LEVOTHYROXINE SODIUM 75 MCG TABLET GT SCH (08:27)
[2022-05-04] MEDS: MUPIROCIN OINT 2% 22 GM TUBE NS SCH ×2 (08:27→21:03)
[2022-05-04] MEDS: BRIMONIDINE TARTRATE OPHT SOLN 5 ML BOTTLE EACHEYE SCH ×2 (08:28→16:12)
[2022-05-04] MEDS: TIMOLOL 0.5% SOLN OPHTH 5 ML BOTTLE EACHEYE SCH ×2 (08:28→16:11)
[2022-05-04] MEDS: VANCOMYCIN 500 MG in IV D5W 100 ML IV SCH ×2 (08:29→22:11)
[2022-05-04] MEDS: ENOXAPARIN SODIUM 60 MG/0.6 ML DISP.SYRIN SQ SCH (08:32)
[2022-05-04] MEDS: PROSOURCE / PROSTAT (PYXIS) 30 ML UDC GT SCH ×2 (08:38→16:04)
[2022-05-04] MEDS: Z GUARD REMEDY 4 OZ OINT TP PRN (08:39)
[2022-05-04] MEDS: THERAHONEY GEL 1.5 OZ TUBE TP SCH (08:39)
[2022-05-04] MEDS: CLOTRIMAZOLE/BETAMETASONE DIPROPIONATE 15 GM TUBE TP SCH (08:39)
[2022-05-04] MEDS: DAKINS QUARTER STRENGTH (0.125%) 480 ML BOTTLE TOP SCH (08:39)
[2022-05-04] MEDS: NYSTATIN TOP POWDER 15 GM BOTTLE TP SCH (08:41)
[2022-05-04 08:56] LABS: CALCIUM, SERUM 8.1 mg/dL (8.5-10.1); CARBON DIOXIDE 38 mmol/L (21-32); CHLORIDE 99 mmol/L (98-107); CREATININE 0.5 mg/dL (0.6-1.3); GLUCOSE 186 mg/dL (74-106); MAGNESIUM 1.9 mg/dL (1.8-2.4); PHOSPHORUS 2.5 mg/dL (2.5-4.9); POTASSIUM 3.6 mmol/L (3.5-5.1); SODIUM SERUM 139 mmol/L (136-145); UREA NITROGEN, BLOOD 20 mg/dL (7-18)
[2022-05-04] MEDS ORDERED: IV NS 0.9% 1,000 ML IV PRN (10:00)
--- NOTE | 2022-05-04 11:42 | NUR ---
RN NOTES NOTED WITH NEW ORDER FOR 0.9 NS @70ML, PATIENT NOTED WITH BUE EDEMA, NO COUGHING NOTED, CLARIFIED WITH DR. POPE, WITH ORDER TO START WITH THE IVF. WILL CONTINUE POC.
[2022-05-04 12:00] VITALS: BP 133/55
[2022-05-04] MEDS ORDERED: ENOXAPARIN SODIUM 60 MG/0.6 ML DISP.SYRIN SQ SCH ×2 (15:19→21:00)
[2022-05-04] MEDS: SOD FERRIC GLUC 125 MG in IV NS 0.9% 100 ML IV SCH (15:42)
--- NOTE | 2022-05-04 18:13 | NUR ---
MS RN CLOSING NOTES PATIENT IN BED AWAKE, OBTUNDED. NO SOB OR NOTED, ON O2 AT 2LPM VIA NASAL CANULA SATING @ 100%, NOT IN ACUTE DISTRESS. AFEBRILE. HAS IV ACCESS ON: RIGHT WRIST #20G AND SALINE LOCKED, AND LEFT UPPER ARM MIDLINE WITH IV FLUIDS 0.9. NS @70ML/HR, INTACT, PATENT AND FLUSHING. NO RESIDUAL NOTED FROM J-TUBE WITH FEEDING OF GLUCERNA @55ML/HR, TOLERATING WELL, NO N/V/D NOTED. NOTED WITH F/C WITH URINE OUTPUT OF 750ML CLEAR YELLOW URINE. ALL DUE MEDS GIVEN AND NEEDS ATTENDED. HOB ELEVATED AT ALL TIMES. SAFETY PRECAUTIONS MAINTAINED. CALL LIGHT WITHIN REACH. WILL ENDORSE TO AUTOMATION LEAD NURSE FOR АЛЕКСАНДР.
[2022-05-04 20:00] VITALS: BP 147/78
[2022-05-04] MEDS: LATANOPROST EYE DROP 0.005% 2.5 ML BOTTLE EACHEYE SCH (21:04)
[2022-05-05] MEDS: BLOOD SUGAR DIAGNOSTIC 1 EACH STRIP IN SCH ×4 (00:44→17:55)
[2022-05-05] MEDS: INSULIN REGULAR, HUMAN 100 UNIT/ML 3 ML VIAL SQ PRN ×4 (00:46→19:02)
[2022-05-05] MEDS: ALBUTEROL HALF STRENGTH 1.25 MG/3 ML VIAL.NEB IH SCH ×3 (01:20→14:53)
[2022-05-05] MEDS: GLUCERNA 1.2 1,000 ML BOTTLE NG PRN (03:48)
[2022-05-05 04:00] VITALS: BP 157/72
[2022-05-05] MEDS: MEROPENEM 1 G in IV NS 0.9% 100 ML IV SCH ×2 (05:01→12:01)
--- NOTE | 2022-05-05 06:25 | NUR ---
RN CLOSING NOTE MED SURGE: OBTUNDED. UNLABORED BREATHING WITH 02 2LPM NC SATING AT 99 %. IV MIDLINE ON PAO WITH IVF 70 ML/HR. RIGHT WRIST IV LINE PATENT SL. ELEVATED BUE WITH PILLOWS DUE TO WEEPING EDEMA. GT IN PLACE PATENT NO RESIDUAL. TOLERATING GT FORMULA WELL. PUTNAM CATHETER WITH CLEAN URINE. TOTAL CARE PROVIDED, WOUND CARE PROVIDED ORDERED. TURNED AND REPOSITIONED WITH PILLOWS. HOB SEMI-FOWLERS POSITION. BED IS LOCKED, IN LOW POSITION WITH EXIT ALARM ON. BILATERAL HALF SIDE RAILS UPX2. CALL LIGHT IN REACH.
[2022-05-05 08:06] LABS: IMMUNOGLOBULIN A, SERUM 1014 mg/dL (64-422); IMMUNOGLOBULIN G, SERUM 1616 mg/dL (586-1602); IMMUNOGLOBULIN M, SERUM 103 mg/dL (26-217)
[2022-05-05 08:17] LABS: CARBON DIOXIDE 30 mmol/L (21-32); CHLORIDE 97 mmol/L (98-107); GLUCOSE 186 mg/dL (74-106); POTASSIUM 4.5 mmol/L (3.5-5.1); SODIUM SERUM 133 mmol/L (136-145); UREA NITROGEN, BLOOD 16 mg/dL (7-18)
[2022-05-05 08:35] LABS: CALCIUM, SERUM 7.9 mg/dL (8.5-10.1); CREATININE 0.5 mg/dL (0.6-1.3); MAGNESIUM 2.3 mg/dL (1.8-2.4); PHOSPHORUS 2.4 mg/dL (2.5-4.9)
[2022-05-05] MEDS: VANCOMYCIN 500 MG in IV D5W 100 ML IV SCH (08:47)
[2022-05-05] MEDS: ACETAMINOPHEN 650 MG/20.3 ML UDC GT SCH (08:47)
[2022-05-05] MEDS: PANTOPRAZOLE 40 MG/PACK PACK JT SCH (08:47)
[2022-05-05] MEDS: LEVETIRACETAM SOL (5 ML) 100 MG/ML UDC JT SCH (08:47)
[2022-05-05] MEDS: LACTOBACILLUS RHAMNOSUS GG 1 EACH CAP.SPRINK GT SCH (08:48)
[2022-05-05] MEDS: VALPROIC ACID 250 MG/5 ML UDC JT SCH ×3 (08:48→16:23)
[2022-05-05] MEDS: FLUCONAZOLE (100 MG) 100 MG TABLET PO SCH (08:48)
[2022-05-05] MEDS: LEVOTHYROXINE SODIUM 75 MCG TABLET GT SCH (08:48)
[2022-05-05] MEDS: BRIMONIDINE TARTRATE OPHT SOLN 5 ML BOTTLE EACHEYE SCH ×2 (08:49→16:23)
[2022-05-05] MEDS: TIMOLOL 0.5% SOLN OPHTH 5 ML BOTTLE EACHEYE SCH ×2 (08:49→16:23)
[2022-05-05] MEDS: MUPIROCIN OINT 2% 22 GM TUBE NS SCH (08:49)
[2022-05-05] MEDS: DAKINS QUARTER STRENGTH (0.125%) 480 ML BOTTLE TOP SCH (08:55)
[2022-05-05] MEDS: Z GUARD REMEDY 4 OZ OINT TP PRN (08:55)
[2022-05-05] MEDS: NYSTATIN TOP POWDER 15 GM BOTTLE TP SCH (08:55)
[2022-05-05] MEDS: PROSOURCE / PROSTAT (PYXIS) 30 ML UDC GT SCH ×2 (08:57→16:23)
[2022-05-05] MEDS: CLOTRIMAZOLE/BETAMETASONE DIPROPIONATE 15 GM TUBE TP SCH (08:58)
--- NOTE | 2022-05-05 08:58 | NUR ---
WOUND CARE CONSULT: PT SEEN FOR SKIN TEAR TO LEFT ARM. RECOMMENDATIONS MADE FOR WOUND CARE AND SKIN PROTECTION. DISCUSSED WITH NURSING STAFF AND WITH SURGICAL P.A. CURRENTLY ON CASE. MD IN AGREEMENT WITH PLAN OF CARE.
[2022-05-05] MEDS: THERAHONEY GEL 1.5 OZ TUBE TP SCH (09:00)
--- NOTE | 2022-05-05 09:14 | NUR ---
MS RN OPENING NOTES RECEIVED PATIENT IN BED AWAKE, ON O2 AT 2LPM VIA NASAL CANULA. BREATHING EVEN AND NON-LABORED. NOT IN APPARENT DISTRESS. NO PAIN OR DISCOMFORT NOTED. NO COUGHING NOTED. MHAS IV ACCESS ON: RIGHT WRIST #20G AND SALINE LOCKED, AND LEFT UPPER ARM MIDLINE. PATENT AND INTACT, NO S/S OF INFILTRATION NOTED. HAS J-TUBE FEEDING OF GLUCERNA RUNNING AT 55 ML/HR, TOLERATING WELL, NO N/V/D NOTED. HAS INDWELLING PUTNAM CATHETER DRAINING CLEAR HERACLIO URINE TO BAG BY GRAVITY. ALL DUE MEDICATIONS GIVEN. HAS EDEMA ON BILATERAL UPPER AND LOWER EXTREMITIES. SAFETY PRECAUTIONS IN PLACE: BED LOW AND LOCKED, BED ALARM ON, SIDE RAILS UP X2, CALL LIGHT WITHIN REACH. WILL CONTINUE PLAN OF CARE.
[2022-05-05] MEDS ORDERED: NEUTRA PHOS 1 POWD.PACKET GT ONE (10:00)
[2022-05-05 10:07] LABS: *ANA ANTI-CENTROMERE B AB <0.2 AI (0.0-0.9); *ANA ANTI-DNA(DS) AB, QN 1 IU/mL (0-9); *ANA ANTI-JO-1 <0.2 AI (0.0-0.9); *ANA ANTICHROMATIN ANTIBODY <0.2 AI (0.0-0.9); *ANA RNP ANTIBODIES <0.2 AI (0.0-0.9); *ANA SJOGREN'S ANTI-SS-A <0.2 AI (0.0-0.9); *ANA SJOGREN'S ANTI-SS-B <0.2 AI (0.0-0.9); *ANAANTI-SCLERODERMA-70 AB <0.2 AI (0.0-0.9); *ANASMITH AB <0.2 AI (0.0-0.9)
--- NOTE | 2022-05-05 10:52 | NUR ---
RN NOTES NOTED SODIUM LEVEL IS 133, NOTED BUE AND BLE EDEMA NOTED, BUE WITH WEEPING EDEMA, DR. RENEE NOTED, WITH ORDER TO HOLD IV FLUIDS, NOTED AND CARRIED OUT, DUE KPHOS GIVEN VIA J TUBE, WILL CONTINUE PLAN OF CARE.
[2022-05-05 12:00] VITALS: BP 145/67
[2022-05-05 12:24] LABS: BASOPHILS # (AUTO) 0.1 K/uL (0.0-0.2); BASOPHILS % (AUTO) 0.7 % (0.0-2.0); EOSINOPHILS % (AUTO) 0.8 % (0.0-6.0); HEMATOCRIT 30 % (33-45); HEMOGLOBIN 9.7 g/dL (11.5-14.8); LYMPHOCYTES # (AUTO) 6.9 K/uL (0.8-4.8); MEAN CORPUSCULAR HGB CONC 32 g/dl (31.0-36.0); MEAN CORPUSCULAR VOLUME 93 fL (82-100); MONOCYTES # (AUTO) 1.3 K/uL (0.1-1.30); MONOCYTES % (AUTO) 8.1 % (2.0-12.0); NEUTROPHILS # (AUTO) 7.3 K/uL (1.8-8.9); NEUTROPHILS % (AUTO) 46.4 % (43.0-81.0); PLATELET COUNT (AUTO) 754 K/uL (150-450); RED BLOOD CELL COUNT(AUTO) 3.27 MIL/uL (4.0-5.2); WHITE BLOOD COUNT (AUTO) 15.6 K/uL (4.3-11.0)
[2022-05-05] MEDS: SOD FERRIC GLUC 125 MG in IV NS 0.9% 100 ML IV SCH (15:50)
--- NOTE | 2022-05-05 18:05 | NUR ---
RN NOTES CALLED [facility], SPOKE TO KEVIN HUNTLEY, GAVE REPORT OF THE DISCHARGE INSTRUCTIONS, CONFIRMED UNDERSTANDING, CLEAN PATIENT, WOUND DRESSING CHANGED AND PHOTO TAKENS. WAITING FOR TRANSPORTATION.
--- NOTE | 2022-05-05 18:56 | NUR ---
MS RN CLOSING NOTES PATIENT IN BED AWAKE, OBTUNDED. NO SOB OR NOTED, ON O2 AT 2LPM VIA NASAL CANULA SATING @ 100%, NOT IN ACUTE DISTRESS. AFEBRILE. HALEFT UPPER ARM MIDLINE PATENT AND INTACT, FLUSHES WELL, SALINE LOCK. NO RESIDUAL NOTED FROM J-TUBE WITH FEEDING OF GLUCERNA @55ML/HR, TOLERATING WELL, NO N/V/D NOTED. NOTED WITH F/C WITH URINE OUTPUT CLEAR YELLOW URINE. HOB ELEVATED AT ALL TIMES. SAFETY PRECAUTIONS MAINTAINED. CALL LIGHT WITHIN REACH. WILL ENDORSE TO LINE PREP COOK NURSE FOR АЛЕКСАНДР.
--- NOTE | 2022-05-05 20:00 | NUR ---
TILE PRESSER NOTES: PT NON-VERBAL. ON 2L/MIN VIA N/C AND PT TOLERATED WELL. O2 SAT 98%. AFEBRILE. KEPT IV ACCESS ON PAO MIDLINE AND PUTNAM CATHETER PER NURSE'S REQUEST. FEEDING TURNED OFF. FLUSHED WELL WITH H20. V/S STABLE. 98.5 F, 95, 20, 98%, 145/72, 0/10. ALL PAPER WORK GIVEN TO THE [facility]. REPORT GIVEN THE NURSE BY PREVIOUS SHIFT. PT DISCHARGED TO [facility] AT 1999 VIA [facility] IN FAIR CONDITION.
[2022-05-06 07:06] LABS: *SPE A/G RATIO 0.4 (0.7-1.7); *SPE ALPHA-1-GLOBULIN 0.3 g/dL (0.0-0.4); *SPE ALPHA-2-GLOBULIN 1.1 g/dL (0.4-1.0); *SPE BETA GLOBULIN 1.5 g/dL (0.7-1.3); *SPE M-SPIKE Not Observed g/dL (Not Observed)
== END 2022-05-05 20:00 | DRG 853 ==
LOC: ER 08:56 → TELE1 12:13 → MEDSG1 04-30 09:30 → TELE1 05-01 21:07 → MEDSG1 05-03 04:23
PROVIDERS: ADMIT Internal Medicine; ATTEND Student in an Organized Health Care Education/Training Program
PROC: 0KBP0ZZ Excision of Left Hip Muscle, Open Approach (ICD-10-PCS; principal; 2022-05-02)
PROC: 0KBN0ZZ Excision of Right Hip Muscle, Open Approach (ICD-10-PCS; 2022-05-02)
DX: A41.9 Sepsis, unspecified organism (principal); E43 Unspecified severe protein-calorie malnutrition; L89.154 Pressure ulcer of sacral region, stage 4; G93.41 Metabolic encephalopathy; J96.01 Acute respiratory failure with hypoxia; N17.0 Acute kidney failure with tubular necrosis; J15.9 Unspecified bacterial pneumonia; N39.0 Urinary tract infection, site not specified; E87.1 Hypo-osmolality and hyponatremia; D68.69 Other thrombophilia; Z68.1 Body mass index [BMI] 19.9 or less, adult; E87.3 Alkalosis; I82.622 Acute embolism and thrombosis of deep veins of left upper extremity; E83.39 Other disorders of phosphorus metabolism; E03.9 Hypothyroidism, unspecified; G40.909 Epilepsy, unspecified, not intractable, without status epilepticus; R13.10 Dysphagia, unspecified; Z90.3 Acquired absence of stomach [part of]; Z87.440 Personal history of urinary (tract) infections; Z93.1 Gastrostomy status; Z79.4 Long term (current) use of insulin; I10 Essential (primary) hypertension; I25.10 Atherosclerotic heart disease of native coronary artery without angina pectoris; Z92.21 Personal history of antineoplastic chemotherapy; Z20.822 Contact with and (suspected) exposure to COVID-19; F03.90 Unspecified dementia, unspecified severity, without behavioral disturbance, psychotic disturbance, mood disturbance, and anxiety; D63.8 Anemia in other chronic diseases classified elsewhere; Z74.09 Other reduced mobility; M62.50 Muscle wasting and atrophy, not elsewhere classified, unspecified site; K21.9 Gastro-esophageal reflux disease without esophagitis; Z85.028 Personal history of other malignant neoplasm of stomach; D75.839 Thrombocytosis, unspecified; E87.6 Hypokalemia; Z66 Do not resuscitate; E86.0 Dehydration; E11.9 Type 2 diabetes mellitus without complications; L89.626 Pressure-induced deep tissue damage of left heel; L89.616 Pressure-induced deep tissue damage of right heel; L89.516 Pressure-induced deep tissue damage of right ankle; B96.5 Pseudomonas (aeruginosa) (mallei) (pseudomallei) as the cause of diseases classified elsewhere; E88.09 Other disorders of plasma-protein metabolism, not elsewhere classified; D72.821 Monocytosis (symptomatic); D72.820 Lymphocytosis (symptomatic); Z86.14 Personal history of Methicillin resistant Staphylococcus aureus infection
CPT/HCPCS: 31720; 36415; 36600; 70450-TC; 71045-TC; 80048-TC; 80076-TC; 80202-TC; 81001; 82607-TC; 82728-TC; 82784; 82803-TC; 82962-TC; 83540-TC; 83605-TC; 83735-TC; 84100-TC; 84155; 84165; 84443-TC; 84484-TC; 85025-TC; 85730-TC; 86140-TC; 86225; 86235; 86334; 86431-TC; 87040-TC; 87081-TC; 87086-TC; 87186-TC; 93970-TC; 94799-TC; A4624; A6253; A6403; A6407; C9803; G0378; J0692; J1650; J1815; J1940; J1953; J2185; J2916; J3370; J3490; J7030; J7040; J7050; J7060

== ENCOUNTER 2022-05-12 16:14 | Inpatient (IN) | payer MEDICARE, OTHER ==
[~2022-05-12] VITALS: Ht 162.6 cm; Wt 47.6 kg
[~2022-05-12 16:14] MED LIST changes: +ALBU1.257 IH; +CLOT15CR5 TP; +COLL30OI TP; +CRAN3875 JT; +LATA2.5D15 EACHEYE; -LATA5DRO EACHEYE; +LEVE500T9 JT; +LEVO75TA7 JT; +MAG30ORA JT; +NYST15PO4 TP; -OLAN2.5T3 JT; +PANT40SU2 JT; +TIMO5DRO31 EACHEYE; +ZINC220C6 JT
--- NOTE | 2022-05-12 17:35 | NUR ---
dr gauthier at bedside for eval
[2022-05-12] MEDS ORDERED: CALC1TAB30 JT (17:36)
[2022-05-12] MEDS ORDERED: MUPI22OI2 (17:36)
[2022-05-12] MEDS ORDERED: BRIM5DRO11 EACHEYE (17:36)
[2022-05-12] MEDS ORDERED: ONDA4TAB11 JT (17:36)
[2022-05-12] MEDS ORDERED: ALBU0.633 IH (17:36)
[2022-05-12] MEDS ORDERED: APIX2.5T JT (17:36)
[2022-05-12] MEDS ORDERED: APIX5TAB JT (17:36)
--- NOTE | 2022-05-12 17:43 | NUR ---
CURRENTLY ON NRB AT 10L, SAT. IN THE HIGH 80'S-LOW 90'S. DR SHEA AWARE.
--- NOTE | 2022-05-12 17:57 | NUR ---
TECH AT BEDSIDE FOR EKG
--- NOTE | 2022-05-12 18:22 | NUR ---
COVID SWAB AND URINE SAMPLE COLLECTED AND SENT TO LAB
--- NOTE | 2022-05-12 18:31 | NUR ---
MOVE SHEET SUBMITTED.
[2022-05-12 19:16] LABS: BILIRUBIN,URINE NEGATIVE (NEGATIVE); COLOR,URINE YELLOW (YELLOW); LEUKOCYTE ESTERASE ,URINE 1+ (NEGATIVE); NITRITE, URINE NEGATIVE (NEGATIVE); PROTEIN,URINE 2+ mg/dl (NEGATIVE); UGLUCOSE NEGATIVE (NEGATIVE); UROBILINOGEN,URINE 0.2 EU/dL (0.2)
[2022-05-12 19:34] LABS: ALANINE AMINOTRANSFERASE 22 U/L (12-78); ALBUMIN 1.6 g/dL (3.4-5.0); ALKALINE PHOSPHATASE 75 U/L (46-116); ASPARTATE AMINOTRANSFERASE 60 U/L (15-37); BILIRUBIN,DIRECT 0.1 mg/dL (0.0-0.2); BILIRUBIN,TOTAL 0.4 mg/dL (0.2-1.0); CALCIUM, SERUM 8.4 mg/dL (8.5-10.1); CARBON DIOXIDE 34 mmol/L (21-32); CHLORIDE 95 mmol/L (98-107); CREATININE 0.4 mg/dL (0.6-1.3); GLUCOSE 167 mg/dL (74-106); POTASSIUM 4.6 mmol/L (3.5-5.1); SODIUM SERUM 132 mmol/L (136-145); TOTAL PROTEIN, SERUM 7.5 g/dL (6.4-8.2); UREA NITROGEN, BLOOD 17 mg/dL (7-18)
[2022-05-12 19:52] LABS: BACTERIA,URINE 2+ /HPF (None Seen); RBC,URINE 81-100 /HPF (0-2); SQUAMOUS EPITHELIAL CELL,UR 0-2 /HPF (None Seen); URINE AMORPHOUS PHOSPHATES Few /HPF (None Seen); WBC,URINE 21-50 /HPF (0-3)
[2022-05-12 20:14] LABS: BASOPHILS # (AUTO) 0.1 K/uL (0.0-0.2); BASOPHILS % (AUTO) 0.7 % (0.0-2.0); EOSINOPHILS % (AUTO) 0.7 % (0.0-6.0); HEMATOCRIT 29 % (33-45); HEMOGLOBIN 9.3 g/dL (11.5-14.8); LYMPHOCYTES # (AUTO) 10.1 K/uL (0.8-4.8); LYMPHOCYTES % (AUTO) 58.2 % (20.0-44.0); MEAN CORPUSCULAR HGB CONC 32 g/dl (31.0-36.0); MEAN CORPUSCULAR VOLUME 93 fL (82-100); MONOCYTES # (AUTO) 1.4 K/uL (0.1-1.30); MONOCYTES % (AUTO) 8.2 % (2.0-12.0); NEUTROPHILS # (AUTO) 5.6 K/uL (1.8-8.9); NEUTROPHILS % (AUTO) 32.2 % (43.0-81.0); PLATELET COUNT (AUTO) 695 K/uL (150-450); WHITE BLOOD COUNT (AUTO) 17.4 K/uL (4.3-11.0)
[2022-05-12] MEDS ORDERED: IV NS 0.9% 1,000 ML BAG IV ONE (20:30)
[2022-05-12] MEDS ORDERED: CEFTRIAXONE 1GM BAG (ER ONLY) 50 ML IV ONE ×2 (20:30→21:09)
[2022-05-12] MEDS ORDERED: AZITHROMYCIN 500 MG in IV D5W 250 ML IV ONE (20:30)
[2022-05-12] MEDS ORDERED: AZITHROMYCIN 500 MG VIAL ONE (21:08)
--- NOTE | 2022-05-12 21:53 | NUR ---
DR. JIMMY MUHAMMAD AT PT'S BEDSIDE
[2022-05-12 22:02] LABS: LYMPHOCYTES % (MANUAL) 43 % (16-48); MONOCYTES % (MANUAL) 6 % (0-11.0); NEUTROPHILS % (MANUAL) 51 (42-76)
--- NOTE | 2022-05-12 22:15 | NUR ---
PT SATTING 15LPM VIA NRB. DR. MARQUEZ ORDERED TO TITRATE PT TO 6LPM VIA SIMPLE MASK. TOLERATING WELL AT 99%. DR. MARQUEZ MD AWARE.
--- NOTE | 2022-05-12 23:09 | NUR ---
ROOM 308-2
--- NOTE | 2022-05-12 23:25 | NUR ---
REPORT GIVEN TO ELISSA Payne RN FOR АЛЕКСАНДР
[2022-05-12] MEDS ORDERED: ACETAMINOPHEN 325 MG TABLET PO PRN (23:30)
[2022-05-12] MEDS ORDERED: ONDANSETRON HCL/PF 4 MG/2 ML VIAL IVP PRN (23:30)
[2022-05-12] MEDS ORDERED: Z GUARD REMEDY 4 OZ OINT TP PRN (23:30)
[2022-05-12] MEDS ORDERED: MAG HYDROX/AL HYDROX/SIMETH 30 ML UDC PO PRN (23:30)
--- NOTE | 2022-05-12 23:42 | NUR ---
PT TRANSFERRED TO 308-2 VIA ACLS PROTOCOL. PT TOLERATED TRANSER WELL.
--- NOTE | 2022-05-12 23:50 | NUR ---
ADMISSION NOTES PT ARRIVED VIA GURNEY WITH RN AND EMT. NONVERBAL. ON NONREBREATHER MASK 15 LPM AND TOLERATING WELL. NO SOB NOTED. NO S/SX OF RESPIRATORY DISTRESS NOTED. TELE MONITOR ON. IV ACCESS IN L WRIST #22G. IV IS INTACT, PATENT, AND FLUSHING WELL. WOUND CARE PICTURES TAKEN. BASIC WOUND CARE DONE. SAFETY PRECAUTIONS IN PLACE: BED IN LOWEST, LOCKED POSITION, SIDERAILS UPx2, AND BRAKES ON. TABLE AND CALL LIGHT WITHIN REACH. ALL NEEDS MET AT THIS TIME.
[2022-05-13] VITALS: BP 133/61
[2022-05-13] MEDS ORDERED: ACETAMINOPHEN 650 MG/20.3 ML UDC GT PRN
[2022-05-13] MEDS ORDERED: BISACODYL SUPP (10 MG) 10 MG/SUPP.RECT SUPP.RECT RC PRN
[2022-05-13] MEDS ORDERED: VANCOMYCIN 1 GM in IV D5W 250ml IV ONE (00:30)
[2022-05-13] MEDS ORDERED: CEFEPIME 2 GM in IV D5W 100 ML IV ONE (00:30)
[2022-05-13] MEDS ORDERED: VANCOMYCIN 1 GM VIAL ONE (00:34)
[2022-05-13] MEDS ORDERED: CEFEPIME 1 GM VIAL ONE (01:10)
[2022-05-13 04:00] VITALS: BP_SYST 108; BP_SYST 121; BP_DIAS 57; BP_DIAS 59
[2022-05-13] MEDS ORDERED: GLUCERNA 1.2 1,000 ML BOTTLE JT PRN ×2 (05:00→05:30)
[2022-05-13 06:25] LABS: CALCIUM, SERUM 8.3 mg/dL (8.5-10.1); CARBON DIOXIDE 32 mmol/L (21-32); CHLORIDE 101 mmol/L (98-107); CREATININE 0.4 mg/dL (0.6-1.3); GLUCOSE 177 mg/dL (74-106); MAGNESIUM 2.1 mg/dL (1.8-2.4); PHOSPHORUS 2.5 mg/dL (2.5-4.9); POTASSIUM 3.7 mmol/L (3.5-5.1); SODIUM SERUM 138 mmol/L (136-145); UREA NITROGEN, BLOOD 14 mg/dL (7-18)
[2022-05-13 06:45] LABS: BASOPHILS # (AUTO) 0.1 K/uL (0.0-0.2); EOSINOPHILS % (AUTO) 1.7 % (0.0-6.0); HEMATOCRIT 28 % (33-45); HEMOGLOBIN 8.9 g/dL (11.5-14.8); LYMPHOCYTES # (AUTO) 5.6 K/uL (0.8-4.8); MEAN CORPUSCULAR HGB CONC 32 g/dl (31.0-36.0); MEAN CORPUSCULAR VOLUME 93 fL (82-100); MONOCYTES # (AUTO) 1.2 K/uL (0.1-1.30); MONOCYTES % (AUTO) 9.4 % (2.0-12.0); NEUTROPHILS # (AUTO) 5.9 K/uL (1.8-8.9); NEUTROPHILS % (AUTO) 44.9 % (43.0-81.0); PLATELET COUNT (AUTO) 717 K/uL (150-450); RED BLOOD CELL COUNT(AUTO) 2.99 MIL/uL (4.0-5.2); WHITE BLOOD COUNT (AUTO) 13.1 K/uL (4.3-11.0)
[2022-05-13 07:00] VITALS: BP_SYST 118; BP_SYST 125; BP_DIAS 51; BP_DIAS 58
[2022-05-13] MEDS ORDERED: PANTOPRAZOLE 40 MG TABLET.DR PO SCH (07:30)
--- NOTE | 2022-05-13 07:37 | NUR ---
RN CLOSING NOTES PT IN BED, ASLEEP, AWAKENS TO VERBAL STIMULI. NONVERBAL. ON NONREBREATHER MASK 11 LPM AND TOLERATING WELL. NO SOB NOTED. NO S/SX OF RESPIRATORY DISTRESS NOTED. TELE MONITOR ON. IV ACCESS IN L WRIST #22G. IV IS INTACT, PATENT, AND FLUSHING WELL. WOUND CARE PICTURES TAKEN. BASIC WOUND CARE DONE. ALL ORDERS CARRIED OUT. ALL NEEDS MET. PT KEPT CLEAN AND DRY. SAFETY PRECAUTIONS IN PLACE: BED IN LOWEST, LOCKED POSITION, SIDERAILS UPx2, AND BRAKES ON. TABLE AND CALL LIGHT WITHIN REACH. WILL ENDORSE TO ONCOMING SHIFT FOR АЛЕКСАНДР.
--- NOTE | 2022-05-13 07:57 | NUR ---
RN OPENING NOTES PATIENT AWAKE IN BED RESTING, NON-VERBAL. NO S/S OF PAIN NOTED AT THIS TIME. ON 11L OXYGEN VIA NON REBREATHER, NO DISTRESS OR SHORTNESS OF BREATH NOTED. IV ACCESS L WRIST #20G, INTACT, PATENT, FLUSHING WELL. PATIENT WITH EXTERNAL OFFICE COORDINATOR WITH CURRENT READING OF SR AND HR 85. FALL AND SAFETY MEASURES IN PLACE, BED ALARM ON, BED IN LOW LOCK POSITION, CALL LIGHT AND TABLE WITHIN EASY REACH, SIDE RAILS UP X2. WILL CONTINUE TO MONITOR.
--- NOTE | 2022-05-13 08:09 | NUR ---
WOUND CARE CONSULT: LIMITED ASSESSMENT AT THIS TIME DUE TO PT SLEEPING. PT NOTED TO HAVE EXTREMELY FRAGILE SKIN WITH GENERALIZED EDEMA, RT WRIST WOUND, LOWER EXTREMITY WOUNDS AND STAGE 4 SACRAL PRESSURE ULCER, ALL PRESENT ON ADMISSION. DR RICARDO AND DR MASCORRO CALLED FOR SURGICAL AND DPM CONSULTS. FIRST STEP LOW AIRLOSS MATTRESS IS ON ORDER. INDY ORELLANA NOTED. IN AGREEMENT WITH PLAN OF CARE. Addendum: 05/13/22 at 0811 by FAN CAMACHO WNDNU DISCUSSED SKIN PROTECTION RECOMMENDATIONS WITH NURSING STAFF.
[2022-05-13] MEDS ORDERED: COLLAGENASE 30 GM TUBE TP SCH (09:00)
[2022-05-13] MEDS ORDERED: APIXABAN 5 MG TABLET GT SCH (09:00)
--- NOTE | 2022-05-13 09:40 | NUR ---
consent for Thoracentesis pending. RN/Elva not able to reach family member to sign the consent
[2022-05-13] MEDS: CEFEPIME 2 GM in IV D5W 100 ML IV SCH ×2 (09:44→17:35)
[2022-05-13] MEDS: PROSOURCE / PROSTAT (PYXIS) 30 ML UDC JT SCH ×2 (09:44→17:34)
[2022-05-13] MEDS: LEVETIRACETAM SOL (5 ML) 100 MG/ML UDC JT SCH ×2 (09:45→21:51)
[2022-05-13] MEDS: PANTOPRAZOLE 40 MG/PACK PACK GT SCH (09:45)
[2022-05-13] MEDS: LEVOTHYROXINE SODIUM 75 MCG TABLET GT SCH (09:45)
[2022-05-13] MEDS: ASCORBIC ACID 500 MG TABLET PEG SCH (09:45)
[2022-05-13] MEDS: MULTIVITAMINS,THERAGRAN 1 UDTAB TABLET GT SCH (09:45)
[2022-05-13] MEDS: LACTOBACILLUS RHAMNOSUS GG 1 EACH CAP.SPRINK PEG SCH (09:45)
[2022-05-13] MEDS: ZINC SULFATE 220 MG CAPSULE JT SCH (09:46)
[2022-05-13] MEDS: TIMOLOL 0.5% SOLN OPHTH 5 ML BOTTLE EACHEYE SCH ×2 (09:46→17:34)
[2022-05-13] MEDS: BRIMONIDINE TARTRATE OPHT SOLN 5 ML BOTTLE EACHEYE SCH ×2 (09:47→17:34)
[2022-05-13] MEDS: THERAHONEY GEL 1.5 OZ TUBE TP SCH (09:48)
[2022-05-13] MEDS: VANCOMYCIN HCL 0.75 GM in IV D5W 250 ML IV SCH ×2 (10:58→18:26)
--- NOTE | 2022-05-13 11:05 | NUR ---
waiting for consent to be signed by family member to proceed with Thoracentesis
[2022-05-13] MEDS: IPRATROPIUM NEB FS 0.5 MG/2.5 ML AMPUL.NEB NEB SCH ×4 (11:12→23:47)
[2022-05-13 12:00] VITALS: BP 118/51
--- NOTE | 2022-05-13 12:58 | NUR ---
consent for thoracentesis not signed yet. family members don't respond to RN's calls
--- NOTE | 2022-05-13 19:05 | NUR ---
RN CLOSING NOTES PATIENT AWAKE IN BED RESTING, NON-VERBAL. NO S/S OF PAIN NOTED AT THIS TIME. ON 8L OXYGEN VIA SIMPLE MASK, NO DISTRESS OR SHORTNESS OF BREATH NOTED. IV ACCESS L WRIST #20G, INTACT, PATENT, FLUSHING WELL. PATIENT WITH EXTERNAL BRUSH CLEARING LABORER WITH CURRENT READING OF SR AND HR 81. PATIENT HAVE A PUTNAM CATHETER IN PLACE AND DRAINING WELL, OUTPUT 1000ML. PATIENT WITH G-TUBE RUINING, GLUCERNA 1.2 @55ML/HR. TOLERATING FEEDING WELL. WOUND CARE IMPLEMENTED. PATIENT WAS TURNED AND REPOSITIONED PER PROTOCOL. SCHEDULE MEDICATIONS ADMINISTERED. FALL AND SAFETY MEASURES IN PLACE, BED ALARM ON, BED IN LOW LOCK POSITION, CALL LIGHT AND TABLE WITHIN EASY REACH, SIDE RAILS UP X2. WILL ENDORSE TO UNDERPRESSER HAND.
--- NOTE | 2022-05-13 19:15 | NUR ---
WASTE WATER PLANT OPERATOR OPENING NOTES RECEIVED PT SLEEPING IN BED. NON-VERBAL PER PRICE CHECKER NURSE. ON O2 8L VIA SIMPLE MASK WITH NO S/S OF SOB OR LABORED BREATHING. ON TELE MONITOR SHOWING SR @ 82 BPM. IV L WRIST #22G PATENT AND INTACT, CURRENTLY RUNNING VANCOMYCIN 250 ML/HR AT THIS TIME. PUTNAM CATHETER IN PLACE AND DRAINING WELL, SHOWING YELLOW AND CLEAR URINE. G-TUBE INTACT, RUNNING GLUCERNA 1.2 @ 55 ML/HR. SAFETY PRECAUTIONS IN PLACE: BED IN LOW AND LOCKED POSITION; SIDE RAILS UP X3; BED ALARM ON; CALL LIGHT AND TRAY TABLE WITHIN REACH. WILL CONTINUE TO MONITOR AND ASSIST.
[2022-05-13 20:18] VITALS: BP 128/63
[2022-05-13] MEDS ORDERED: LIDOCAINE 1%-EPI 1:100,000 20 ML VIAL TP ONE (20:30)
[2022-05-13] MEDS ORDERED: SILVER NITRATE APPLICATOR 1 EA BOX TP SCH (20:30)
--- NOTE | 2022-05-13 21:50 | NUR ---
RN NOTE PT TITRATED DOWN TO 6L VIA SIMPLE MASK TOLERATING WELL.
[2022-05-13] MEDS: LATANOPROST EYE DROP 0.005% 2.5 ML BOTTLE EACHEYE SCH (21:52)
[2022-05-13] MEDS: DAKINS QUARTER STRENGTH (0.125%) 480 ML BOTTLE TOP SCH (21:53)
[2022-05-13] MEDS: HEPARIN SODIUM, PORCINE 5000 UNITS/1 ML VIAL SQ SCH (21:58)
[2022-05-14 00:27] VITALS: BP 139/73
[2022-05-14] MEDS: CEFEPIME 2 GM in IV D5W 100 ML IV SCH ×3 (01:29→17:43)
[2022-05-14] MEDS: VANCOMYCIN HCL 0.75 GM in IV D5W 250 ML IV SCH (01:59)
[2022-05-14] MEDS: GLUCERNA 1.2 1,000 ML BOTTLE JT PRN (03:39)
[2022-05-14 04:13] VITALS: BP 153/76
[2022-05-14] MEDS: IPRATROPIUM NEB FS 0.5 MG/2.5 ML AMPUL.NEB NEB SCH ×5 (04:29→20:04)
[2022-05-14 06:25] LABS: ALANINE AMINOTRANSFERASE 17 U/L (12-78); ALKALINE PHOSPHATASE 65 U/L (46-116); ASPARTATE AMINOTRANSFERASE 30 U/L (15-37); BILIRUBIN,TOTAL 0.2 mg/dL (0.2-1.0); CALCIUM, SERUM 8.2 mg/dL (8.5-10.1); CARBON DIOXIDE 34 mmol/L (21-32); CHLORIDE 101 mmol/L (98-107); CREATININE 0.5 mg/dL (0.6-1.3); GLUCOSE 190 mg/dL (74-106); POTASSIUM 3.8 mmol/L (3.5-5.1); SODIUM SERUM 138 mmol/L (136-145); TOTAL PROTEIN, SERUM 6.6 g/dL (6.4-8.2); UREA NITROGEN, BLOOD 20 mg/dL (7-18)
[2022-05-14 06:39] LABS: ALBUMIN 1.4 g/dL (3.4-5.0)
[2022-05-14 06:53] LABS: BASOPHILS # (AUTO) 0.1 K/uL (0.0-0.2); BASOPHILS % (AUTO) 1.1 % (0.0-2.0); EOSINOPHILS % (AUTO) 4.1 % (0.0-6.0); HEMATOCRIT 26 % (33-45); HEMOGLOBIN 8.3 g/dL (11.5-14.8); LYMPHOCYTES # (AUTO) 7.4 K/uL (0.8-4.8); LYMPHOCYTES % (AUTO) 57.1 % (20.0-44.0); MEAN CORPUSCULAR HGB CONC 32 g/dl (31.0-36.0); MEAN CORPUSCULAR VOLUME 94 fL (82-100); MONOCYTES # (AUTO) 1.2 K/uL (0.1-1.30); MONOCYTES % (AUTO) 9.6 % (2.0-12.0); NEUTROPHILS # (AUTO) 3.6 K/uL (1.8-8.9); NEUTROPHILS % (AUTO) 28.1 % (43.0-81.0); PLATELET COUNT (AUTO) 658 K/uL (150-450); RED BLOOD CELL COUNT(AUTO) 2.75 MIL/uL (4.0-5.2)
[2022-05-14 07:00] VITALS: BP 134/59
[2022-05-14] MEDS: PANTOPRAZOLE 40 MG/PACK PACK GT SCH (07:00)
[2022-05-14] MEDS: LEVOTHYROXINE SODIUM 75 MCG TABLET GT SCH (07:00)
--- NOTE | 2022-05-14 07:13 | NUR ---
BUSINESS BANKING OFFICER CLOSING NOTES PT SLEEPING IN BED AT THIS TIME. NON-VERBAL, AWAKENS TO NAME. STABLE ON O2 8L VIA SIMPLE MASK WITH NO S/S OF SOB OR LABORED BREATHING. ON TELE MONITOR SHOWING SR @ 73 BPM. IV ACCESS L WRIST #22G SL, PATENT AND INTACT. PUTNAM CATHETER IN PLACE AND DRAINING WELL, SHOWING YELLOW AND CLEAR URINE. G-TUBE INTACT, RUNNING GLUCERNA 1.2 @ 55 ML/HR. ALL CARE PROVIDED AND ADMINISTERED MEDICATIONS TOLERATED WELL. SAFETY PRECAUTIONS MAINTAINED: BED IN LOW AND LOCKED POSITION; SIDE RAILS UP X3; BED ALARM ON; CALL LIGHT AND TRAY TABLE WITHIN REACH. WILL ENDORSE АЛЕКСАНДР TO JOB DEVELOPER NURSE.
[2022-05-14] MEDS: ZINC SULFATE 220 MG CAPSULE JT SCH ×2 (09:00→09:40)
[2022-05-14] MEDS: LEVETIRACETAM SOL (5 ML) 100 MG/ML UDC JT SCH ×3 (09:00→21:00)
[2022-05-14] MEDS: HEPARIN SODIUM, PORCINE 5000 UNITS/1 ML VIAL SQ SCH ×2 (09:00→21:00)
[2022-05-14] MEDS: LACTOBACILLUS RHAMNOSUS GG 1 EACH CAP.SPRINK PEG SCH ×2 (09:00→09:40)
[2022-05-14] MEDS: PROSOURCE / PROSTAT (PYXIS) 30 ML UDC JT SCH ×2 (09:00→17:00)
[2022-05-14] MEDS: ASCORBIC ACID 500 MG TABLET PEG SCH ×2 (09:00→09:40)
[2022-05-14] MEDS: MULTIVITAMINS,THERAGRAN 1 UDTAB TABLET GT SCH (09:40)
[2022-05-14] MEDS: ALBUMIN 25% 25 GM in PREMIX 1 EA IV SCH ×2 (09:59→22:13)
--- NOTE | 2022-05-14 10:30 | NUR ---
NFL PLAYER NOTES: GT MEDS HELD DUE TO J-TUBE POSSIBLY CLOGGED OR LEAKING, AWARE, OPHTHALMIC AND IV MEDS GIVEN, WOUND CARE DONE.
[2022-05-14] MEDS ORDERED: FUROSEMIDE 40 MG/4 ML VIAL IV ONE (11:00)
[2022-05-14 12:00] VITALS: BP 123/57
[2022-05-14] MEDS: TIMOLOL 0.5% SOLN OPHTH 5 ML BOTTLE EACHEYE SCH ×2 (12:04→17:50)
[2022-05-14] MEDS: DAKINS QUARTER STRENGTH (0.125%) 480 ML BOTTLE TOP SCH (12:04)
[2022-05-14] MEDS: THERAHONEY GEL 1.5 OZ TUBE TP SCH (12:05)
[2022-05-14] MEDS: BRIMONIDINE TARTRATE OPHT SOLN 5 ML BOTTLE EACHEYE SCH ×2 (12:07→17:51)
[2022-05-14 16:39] LABS: BAND % (MANUAL) 2 % (0.0-5.0); EOSINOPHILS % (MANUAL) 4 % (0-4); LYMPHOCYTES % (MANUAL) 47 % (16-48); MONOCYTES % (MANUAL) 9 % (0-11.0); NEUTROPHILS % (MANUAL) 37 (42-76); REACTIVE LYMPHOCYTES 1 % (0-0)
--- NOTE | 2022-05-14 19:50 | NUR ---
CATERPILLAR DRIVER OPENING NOTES RECEIVED PT ASLEEP IN BED; NON-VERBAL, AWAKENS TO NAME. STABLE ON O2 @ 6L VIA SIMPLE MASK WITH NO S/S OF SOB OR LABORED BREATHING. ON TELE MONITOR SHOWING SR @ 74 BPM. IV ACCESS L WRIST #22G SL, PATENT AND INTACT. PUTNAM CATHETER IN PLACE AND DRAINING WELL, SHOWING YELLOW AND CLEAR URINE. G-TUBE NOTED, RUNNING GLUCERNA 1.2 @ 55 ML/HR. SAFETY PRECAUTIONS MAINTAINED: BED IN LOW AND LOCKED POSITION; SIDE RAILS UP X3; BED ALARM ON; CALL LIGHT AND TRAY TABLE WITHIN REACH, WILL CONT WITH PLAN OF CARE DURING SHIFT. Addendum: 05/14/22 at 5 by PARKER CHIRINOS RN [id number]
--- NOTE | 2022-05-14 19:52 | NUR ---
BRIM IRONER HAND CLOSING NOTES PT SLEEPING IN BED AT THIS TIME. NON-VERBAL, AWAKENS TO NAME. STABLE ON O2 6L VIA SIMPLE MASK WITH NO S/S OF SOB OR LABORED BREATHING. ON TELE MONITOR SHOWING SR @ 72 BPM. IV ACCESS L WRIST #22G SL, PATENT AND INTACT. PUTNAM CATHETER IN PLACE AND DRAINING WELL, SHOWING YELLOW AND CLEAR URINE. G-TUBE POSSIBLY LEAKING OR CLOGGED, TUBE FEEDING PAUSED UNTIL LEAK RULED OUT, MD AWARE. KEPT PT CLEAN, DRY AND COMFORTABLE. SAFETY PRECAUTIONS MAINTAINED: BED IN LOW AND LOCKED POSITION; SIDE RAILS UP X3; BED ALARM ON; CALL LIGHT AND TRAY TABLE WITHIN REACH, ENDORSED TO PM SHIFT.
--- NOTE | 2022-05-14 19:53 | NUR ---
CHICK SEXER OPENING NOTES RECEIVED PT SLEEPING IN BED AT THIS TIME. NON-VERBAL, AWAKENS TO NAME. ON O2 6L VIA SIMPLE MASK WITH NO S/S OF SOB OR LABORED BREATHING. ON TELE MONITOR SHOWING SR @ 82 BPM. IV ACCESS L WRIST #22G SL, PATENT AND INTACT. PUTNAM CATHETER IN PLACE AND DRAINING WELL, SHOWING YELLOW AND CLEAR URINE. G-TUBE POSSIBLY LEAKING OR CLOGGED, TUBE FEEDING PAUSED UNTIL LEAK RULED OUT, MD AWARE. KEPT PT CLEAN, DRY AND COMFORTABLE. SAFETY PRECAUTIONS IN PLACE: BED IN LOW AND LOCKED POSITION; SIDE RAILS UP X3; BED ALARM ON; CALL LIGHT AND TRAY TABLE WITHIN REACH. WILL CONTINUE TO MONITOR AND ASSIST.
[2022-05-14 20:00] VITALS: BP 131/65
[2022-05-14] MEDS: LATANOPROST EYE DROP 0.005% 2.5 ML BOTTLE EACHEYE SCH (22:18)
--- NOTE | 2022-05-14 22:19 | NUR ---
RN NOTES HELD HEPARIN [address] MORALES'S ORDER DUE TO FUTURE DEBRIDEMENT IN THE AM.
[2022-05-14] MEDS: VANCOMYCIN 1 GM in IV D5W 250 ML IV SCH (22:48)
[2022-05-14] MEDS ORDERED: FUROSEMIDE 100 MG/10 ML VIAL IV ONE (23:00)
[2022-05-15] VITALS: BP 154/67
[2022-05-15] MEDS: IPRATROPIUM NEB FS 0.5 MG/2.5 ML AMPUL.NEB NEB SCH ×7 (00:13→20:27)
[2022-05-15] MEDS: CEFEPIME 2 GM in IV D5W 100 ML IV SCH ×3 (01:06→16:18)
--- NOTE | 2022-05-15 02:47 | NUR ---
RT NOTE TITRATED FIO2 TO 40% NASAL CANNULA WITH HUMIDIFIER. PT TOLERATING WELL. RN FREDERIC NOTIFIED AND AWARE.
[2022-05-15 04:00] VITALS: BP 164/78
[2022-05-15 06:45] LABS: BASOPHILS # (AUTO) 0.1 K/uL (0.0-0.2); BASOPHILS % (AUTO) 0.8 % (0.0-2.0); EOSINOPHILS % (AUTO) 3.1 % (0.0-6.0); HEMATOCRIT 29 % (33-45); HEMOGLOBIN 9.3 g/dL (11.5-14.8); LYMPHOCYTES # (AUTO) 5.5 K/uL (0.8-4.8); LYMPHOCYTES % (AUTO) 43.1 % (20.0-44.0); MEAN CORPUSCULAR HGB CONC 32 g/dl (31.0-36.0); MEAN CORPUSCULAR VOLUME 93 fL (82-100); MONOCYTES # (AUTO) 1.4 K/uL (0.1-1.30); MONOCYTES % (AUTO) 10.8 % (2.0-12.0); NEUTROPHILS # (AUTO) 5.3 K/uL (1.8-8.9); NEUTROPHILS % (AUTO) 42.2 % (43.0-81.0); PLATELET COUNT (AUTO) 780 K/uL (150-450); RED BLOOD CELL COUNT(AUTO) 3.14 MIL/uL (4.0-5.2); WHITE BLOOD COUNT (AUTO) 12.7 K/uL (4.3-11.0)
[2022-05-15 06:58] LABS: ALANINE AMINOTRANSFERASE 21 U/L (12-78); ALBUMIN 1.9 g/dL (3.4-5.0); ALKALINE PHOSPHATASE 71 U/L (46-116); ASPARTATE AMINOTRANSFERASE 35 U/L (15-37); BILIRUBIN,TOTAL 0.4 mg/dL (0.2-1.0); CALCIUM, SERUM 8.6 mg/dL (8.5-10.1); CARBON DIOXIDE 38 mmol/L (21-32); CHLORIDE 97 mmol/L (98-107); CREATININE 0.5 mg/dL (0.6-1.3); GLUCOSE 190 mg/dL (74-106); SODIUM SERUM 138 mmol/L (136-145); TOTAL PROTEIN, SERUM 7.8 g/dL (6.4-8.2); UREA NITROGEN, BLOOD 18 mg/dL (7-18)
[2022-05-15] MEDS: PANTOPRAZOLE 40 MG/PACK PACK GT SCH (07:00)
[2022-05-15] MEDS: LEVOTHYROXINE SODIUM 75 MCG TABLET GT SCH (07:00)
--- NOTE | 2022-05-15 07:17 | NUR ---
GRADUATE TEACHING ASSISTANT CLOSING NOTES PT SLEEPING IN BED AT THIS TIME. NON-VERBAL, AWAKENS TO NAME AND MAKES EYE CONTACT. STABLE ON O2 5L VIA NC WITH NO S/S OF SOB OR LABORED BREATHING. ON TELE MONITOR SHOWING SR @ 77 BPM. IV ACCESS RAC #22G SL, PATENT AND INTACT. PUTNAM CATHETER IN PLACE AND DRAINING WELL, SHOWING YELLOW AND CLEAR URINE. G-TUBE POSSIBLY LEAKING OR CLOGGED, TUBE FEEDING PAUSED UNTIL LEAK RULED OUT, MD AWARE. KEPT PT CLEAN, DRY AND COMFORTABLE. ALL CARE PROVIDED AND ADMINISTERED MEDICATIONS TOLERATED WELL. SAFETY PRECAUTIONS MAINTAINED: BED IN LOW AND LOCKED POSITION; SIDE RAILS UP X3; BED ALARM ON; CALL LIGHT AND TRAY TABLE WITHIN REACH. WILL ENDORSE АЛЕКСАНДР TO WOOD MACHINE CARVER NURSE.
--- NOTE | 2022-05-15 07:18 | NUR ---
DIAMOND SELECTOR OPENING NOTES: RECEIVED PT IN BED, ASLEEP, EASILY AROUSED WITH STIMULI. PT NON VERBAL. NO SOB OR CARDIAC DISTRESS NOTED. O2 INHALATION 5LPM VIA NC AND TOLERATING WELL. ON G-TUBE-ON HOLD FOR NOW. IV ACCESS ON RAC GAUGE 22 PATENT, INTACT AND SALINE LOCKED. SAFETY PRECAUTIONS MAINTAINED: BED LOCKED AND IN LOWEST POSITION, SIDE RAILS UP X 2. CALL LIGHT IN EASY REACH AND WILL MONITOR PT ACCORDINGLY.
--- NOTE | 2022-05-15 07:36 | NUR ---
RN NOTES: MORNING MEDS NOT GIVEN, RULING OUT MISPLACED/MALFUNCTIONED G TUBE. NO RESULTS YET KUB ULTRASOUND.
[2022-05-15 08:00] VITALS: BP 138/80
--- NOTE | 2022-05-15 08:15 | NUR ---
RN NOTES: INFORMED DR GLORIA IF I CAN HAVE ORDER TO HOLD HEPARIN, PT WILL HAVE A POSSIBLE DEBRIDEMENT TODAY. MD LOREDO, ORDERS NOTED AND CARRIED OUT.
[2022-05-15] MEDS ORDERED: POTASSIUM CHLORIDE 20 MEQ TAB.PRT.SR PO ONE (08:30)
[2022-05-15] MEDS: ZINC SULFATE 220 MG CAPSULE JT SCH (09:00)
[2022-05-15] MEDS: LEVETIRACETAM SOL (5 ML) 100 MG/ML UDC JT SCH ×2 (09:00→21:23)
[2022-05-15] MEDS: MULTIVITAMINS,THERAGRAN 1 UDTAB TABLET GT SCH (09:00)
[2022-05-15] MEDS: ASCORBIC ACID 500 MG TABLET PEG SCH (09:00)
[2022-05-15] MEDS: LACTOBACILLUS RHAMNOSUS GG 1 EACH CAP.SPRINK PEG SCH (09:00)
[2022-05-15] MEDS: PROSOURCE / PROSTAT (PYXIS) 30 ML UDC JT SCH ×2 (09:00→16:13)
[2022-05-15] MEDS: HEPARIN SODIUM, PORCINE 5000 UNITS/1 ML VIAL SQ SCH ×2 (09:00→21:24)
--- NOTE | 2022-05-15 09:00 | NUR ---
RN NOTES: SEEN AND EXAMINED BY DR GLORIA, INFORMED RN NOT GIVING MEDS YET PENDING KUB RESULT. DR GLORIA STATED ITS OKAY AND WILL WAIT FOR RESULT. INFORMED PHARMACIST TO CHANGE ORDER OF POTAASIUM PO TO IV. ORDERS NOTED AND CARRIED OUT.
[2022-05-15] MEDS: BRIMONIDINE TARTRATE OPHT SOLN 5 ML BOTTLE EACHEYE SCH ×2 (09:08→16:14)
[2022-05-15] MEDS: TIMOLOL 0.5% SOLN OPHTH 5 ML BOTTLE EACHEYE SCH ×2 (09:08→16:15)
[2022-05-15] MEDS: THERAHONEY GEL 1.5 OZ TUBE TP SCH ×2 (09:09→11:02)
[2022-05-15] MEDS: DAKINS QUARTER STRENGTH (0.125%) 480 ML BOTTLE TOP SCH (09:09)
[2022-05-15] MEDS: Potassium Chloride 10 MEQ in IV D5W 50 ML IV SCH ×4 (09:20→12:27)
[2022-05-15] MEDS: FLUCONAZOLE IN NS 100 MG in PREMIX 1 EA IV SCH ×2 (09:20)
--- NOTE | 2022-05-15 10:29 | NUR ---
WOUND CARE CONSULT: PT SEEN FOR RAISED BLISTERS (INTACT) TO LEFT ARM, UNKNOWN ETIOLOGY. DR RICARDO NOTIFIED OF CONSULT (ALREADY FOLLOWING PT). DISCUSSED SKIN PROTECTION WITH NURSING STAFF. MD IN AGREEMENT WITH PLAN OF CARE.
[2022-05-15] MEDS: GLUCERNA 1.2 1,000 ML BOTTLE JT PRN (11:59)
--- NOTE | 2022-05-15 12:19 | NUR ---
RN NOTES: DR GLORIA ORDERED TO START GLUCERNA G-TUBE FEEDING ON 5ML AND ASK STENCIL MACHINE OPERATOR TO TITRATE UP AND INCREASE G-TUBE FEEDING TO 20CC BY END OF SHIFT AND KEEP THE RATE. ORDERS NOTED AND CARRIED OUT.
[2022-05-15 16:00] VITALS: BP 140/74
--- NOTE | 2022-05-15 19:00 | NUR ---
MS HUNTLEY OPENING NOTES: PATIENT IN BED.ASLEEP,NON VERBAL.NO FACIAL GRIMACE, EASILY AROUSED WITH STIMULI. S/P SACRAL WOUND DEBRIDEMENT.STARTED ON ENTERAL FEEDING ON GLUCERNA 1.2 @ 20ML/HR. IV ACCESS ON RAC GAUGE 22 PATENT,INTACT AND SALINE LOCKED. PUTNAM CATHETER DRAINING TEA COLORED URINE VIA GRAVITY. WOUND TREATMENT DONE. SAFETY MEASURES MAINTAINED. BED LOCKED AND IN LOWEST POSITION, SIDE RAILS UP X 2. CALL LIGHT AND BED SIDE TABLE IN EASY REACH. ENDORSED TO NOC SHIFT FOR АЛЕКСАНДР. Addendum: 05/15/22 at 1943 by SVETLANA LINDO RN ERROR, ITS CLOSING NOTES
--- NOTE | 2022-05-15 19:30 | NUR ---
RN NOTES RECEIVED REPORT FROM MORNING RN. PATIENT IN BED OBTUNDED. ON SIMPLE MASK @10LPM SATING 92% NO SOB NO DISTRESS NOTED AT THIS TIME. WITH IV ACCESS AT R AC#22 [id number] FLUSHES WELL SL. WITH JT PATENT INTACT RUNNING GLUCERNA @20CC/HR TOLERATING WELL. WITH PUTNAM CATHETER CONNECTED TO URINE BAG DRAINING YELLOWISH URINE. ALL SAFETY MEASURES IN PLACE AT ALL TIMES. HOB ELEVATED AT ALL TIMES. CALL LIGHT WITHIN REACH. WILL CLOSELY MONITOR THE PATIENT
[2022-05-15 20:00] VITALS: BP 124/57
--- NOTE | 2022-05-15 20:38 | NUR ---
RT pt placed on simple mask due to low o2 sat. sergey troy, notified.
[2022-05-15] MEDS: VANCOMYCIN 1 GM in IV D5W 250 ML IV SCH (21:23)
[2022-05-15] MEDS: LATANOPROST EYE DROP 0.005% 2.5 ML BOTTLE EACHEYE SCH (21:26)
[2022-05-16] MEDS: CEFEPIME 2 GM in IV D5W 100 ML IV SCH ×4 (00:18→17:00)
[2022-05-16] MEDS: IPRATROPIUM NEB FS 0.5 MG/2.5 ML AMPUL.NEB NEB SCH ×5 (00:24→16:12)
--- NOTE | 2022-05-16 02:15 | NUR ---
RN NOTES PATIENT O2 SAT 85 ON SIMPLE MASK. REFERRED TO DR MORALES WITH ORDER TO PUT ON NON REBREATHER 15LPM. SATURATION WENT UP 91%. WILL CONTINUE TO MONITOR THE PATIENT
--- NOTE | 2022-05-16 04:10 | NUR ---
RN NOTES RT INFORMED CN PATIENT O2SAT 84% AFTER BREATHING TREATMENT. DR MORALES INFORMED WITH NEW ORDER FOR STAT CHEST XRAY. REPOSITION PATIENT O2 SATS WENT UP TO 92-93%. WILL CLOSELY MONITOR THE PATIENT
[2022-05-16] MEDS: PANTOPRAZOLE 40 MG/PACK PACK GT SCH (06:08)
[2022-05-16] MEDS: LEVOTHYROXINE SODIUM 75 MCG TABLET GT SCH (06:08)
[2022-05-16 06:43] LABS: BASOPHILS # (AUTO) 0.1 K/uL (0.0-0.2); BASOPHILS % (AUTO) 0.6 % (0.0-2.0); EOSINOPHILS % (AUTO) 0.7 % (0.0-6.0); HEMATOCRIT 29 % (33-45); HEMOGLOBIN 9.5 g/dL (11.5-14.8); LYMPHOCYTES # (AUTO) 2.9 K/uL (0.8-4.8); LYMPHOCYTES % (AUTO) 24.7 % (20.0-44.0); MEAN CORPUSCULAR HGB CONC 32 g/dl (31.0-36.0); MEAN CORPUSCULAR VOLUME 92 fL (82-100); MONOCYTES # (AUTO) 1.1 K/uL (0.1-1.30); MONOCYTES % (AUTO) 9.7 % (2.0-12.0); NEUTROPHILS # (AUTO) 7.4 K/uL (1.8-8.9); NEUTROPHILS % (AUTO) 64.3 % (43.0-81.0); PLATELET COUNT (AUTO) 766 K/uL (150-450); RED BLOOD CELL COUNT(AUTO) 3.16 MIL/uL (4.0-5.2); WHITE BLOOD COUNT (AUTO) 11.6 K/uL (4.3-11.0)
[2022-05-16 06:56] LABS: ALBUMIN 1.9 g/dL (3.4-5.0); BILIRUBIN,TOTAL 0.5 mg/dL (0.2-1.0); CALCIUM, SERUM 8.9 mg/dL (8.5-10.1); CREATININE 0.6 mg/dL (0.6-1.3); POTASSIUM 3.5 mmol/L (3.5-5.1); TOTAL PROTEIN, SERUM 8.2 g/dL (6.4-8.2)
--- NOTE | 2022-05-16 06:56 | NUR ---
RN NOTES PATIENT OBTUNDED. ON NON REBREATHER MASK @15LPM TOLERATING WELL SATING 99%. PATIENT HAS PERIODS OF DESATURATION. STAT CHEST XRAY ORDERED. STILL ON GT FEEDING @20CC/HR TOLERATING WELL. PUTNAM PATENT FLUSHES WELL. ALL SAFETY MEASURES IN PLACE AT ALL TIMES. HOB ELEVATED FREQUENT VISUAL MONITORING RENDERED. WILL ENDORSE TO MORNING SHIFT FOR АЛЕКСАНДР
[2022-05-16] MEDS ORDERED: FUROSEMIDE 40 MG/4 ML VIAL IV ONE (07:30)
[2022-05-16 08:00] VITALS: BP 115/69
[2022-05-16] MEDS ORDERED: ALBUMIN 25% 25 GM in PREMIX 1 EA IV SCH (08:00)
--- NOTE | 2022-05-16 08:00 | NUR ---
MS RN OPENING NOTES PATIENT LAYING IN BED, OBTUNDED, TOLERATING WELL ON 15 LPM O2 VIA NRB. R AC # 22 SL CLEAN, INTACT, AND FLUSHING WELL G-TUBE IN PLACE WITH GLUCERNA 1.2 INFUSING @ 20 CC/HR. PUTNAM CATHETER IN PLACE DRAINING CLEAR YELLOW URINE TO GRAVITY. SAFETY MEASURES IN PLACE: BED IN LOWEST LOCKED POSITION, SIDE RAILS UP X 2, CALL LIGHT WITHIN REACH. WILL CONTINUE TO MONITOR.
--- NOTE | 2022-05-16 08:40 | NUR ---
MS HUNTLEY NOTES PATIENT NOTED WITH O2 88% ON ROOM AIR WHILE ON 15 LPM O2 VIA NRB, MADE AWARE. RECEIVED ORDERS FOR BREATHING TREATMENT AND CHEST ULTRASOUND. ORDERS WERE PLACED, MADE AWARE, RESPIRATORY THERAPY MADE AWARE. VOICEMAIL LEFT FOR RADIOLOGY. Addendum: 05/16/22 at 1310 by JANICE NGUYEN RN PATIENT O2 SATURATION WAS 100% ON 15 LPM VIA NRB AT THIS TIME
--- NOTE | 2022-05-16 09:14 | NUR ---
MS RN NOTES PATIENT NOTED WITH O2 100% ON 15 LPM VIA NRB, MD MADE AWARE. CANCELLED BREATHING TREATMENT ORDER PER MD REQUEST. CHEST ULTRASOUND PERFORMED WITH NO FLUID NOTED IN LUNGS, MD MADE AWARE.
[2022-05-16] MEDS: LEVETIRACETAM SOL (5 ML) 100 MG/ML UDC JT SCH (10:26)
[2022-05-16] MEDS: MULTIVITAMINS,THERAGRAN 1 UDTAB TABLET GT SCH (10:26)
[2022-05-16] MEDS: ZINC SULFATE 220 MG CAPSULE JT SCH (10:26)
[2022-05-16] MEDS: ASCORBIC ACID 500 MG TABLET PEG SCH (10:26)
[2022-05-16] MEDS: LACTOBACILLUS RHAMNOSUS GG 1 EACH CAP.SPRINK PEG SCH (10:26)
[2022-05-16] MEDS: PROSOURCE / PROSTAT (PYXIS) 30 ML UDC JT SCH ×3 (10:27→17:00)
[2022-05-16] MEDS: THERAHONEY GEL 1.5 OZ TUBE TP SCH ×2 (10:27)
[2022-05-16] MEDS: DAKINS QUARTER STRENGTH (0.125%) 480 ML BOTTLE TOP SCH (10:27)
[2022-05-16] MEDS: TIMOLOL 0.5% SOLN OPHTH 5 ML BOTTLE EACHEYE SCH ×3 (10:30→17:00)
[2022-05-16] MEDS: BRIMONIDINE TARTRATE OPHT SOLN 5 ML BOTTLE EACHEYE SCH ×2 (10:30→16:55)
[2022-05-16] MEDS: HEPARIN SODIUM, PORCINE 5000 UNITS/1 ML VIAL SQ SCH (10:30)
[2022-05-16] MEDS: FLUCONAZOLE IN NS 100 MG in PREMIX 1 EA IV SCH ×2 (12:09)
[2022-05-16] MEDS: ACETYLCYSTEINE 10% SOLN 400 MG/4 ML VIAL NEB SCH ×2 (13:31→16:12)
[2022-05-16 16:00] VITALS: BP 122/63
[2022-05-16] MEDS ORDERED: DEXTROSE 50%-WATER 50 ML DISP.SYRIN IV PRN (16:30)
[2022-05-16] MEDS ORDERED: INSULIN REGULAR, HUMAN 100 UNIT/ML 3 ML VIAL SQ PRN (16:30)
[2022-05-16] MEDS: BLOOD SUGAR DIAGNOSTIC 1 EACH STRIP IN SCH ×2 (16:56→17:30)
--- NOTE | 2022-05-16 18:00 | NUR ---
MS RN NOTES UPON PERFORMING ROUNDS AT AT 1750 PATIENT WAS NOTED TO BE PALE AND PULSELESS WITH NO AUDIBLE HEART RATE. CNC LATHE PROGRAMMER AND MD NOTIFIED. DAUGHTER AND GRANDDAUGHTER NOTIFIED. PATIENT WAS PRONOUNCED AT 1800.
--- NOTE | 2022-05-16 18:54 | NUR ---
MS RN NOTES SPOKE WITH OLGA LIDIA FROM [facility] AND PROVIDED PATIENT INFORMATION PER FAMILY REQUEST
--- NOTE | 2022-05-16 19:01 | NUR ---
MS RN NOTES SPOKE WITH [facility] WHO DECLINED PATIENT. REFERRAL NUMBER [id number].
--- NOTE | 2022-05-16 19:45 | NUR ---
NOTES; PT WAS PICKED BY [facility].
== END 2022-05-16 18:00 | DRG 853 ==
LOC: ER 16:19 → TELE 23:16 → MED 05-15 10:11
PROVIDERS: ADMIT Nurse Practitioner Family; ATTEND Internal Medicine
PROC: 0KBP0ZZ Excision of Left Hip Muscle, Open Approach (ICD-10-PCS; principal; 2022-05-15)
PROC: 0KBN0ZZ Excision of Right Hip Muscle, Open Approach (ICD-10-PCS; 2022-05-15)
DX: A41.9 Sepsis, unspecified organism (principal); E43 Unspecified severe protein-calorie malnutrition; L89.154 Pressure ulcer of sacral region, stage 4; J96.01 Acute respiratory failure with hypoxia; J18.9 Pneumonia, unspecified organism; G93.41 Metabolic encephalopathy; J69.0 Pneumonitis due to inhalation of food and vomit; E87.1 Hypo-osmolality and hyponatremia; N39.0 Urinary tract infection, site not specified; L98.498 Non-pressure chronic ulcer of skin of other sites with other specified severity; L03.113 Cellulitis of right upper limb; J90 Pleural effusion, not elsewhere classified; J98.11 Atelectasis; D75.839 Thrombocytosis, unspecified; D64.9 Anemia, unspecified; F01.50 Vascular dementia, unspecified severity, without behavioral disturbance, psychotic disturbance, mood disturbance, and anxiety; G40.909 Epilepsy, unspecified, not intractable, without status epilepticus; I10 Essential (primary) hypertension; I25.10 Atherosclerotic heart disease of native coronary artery without angina pectoris; I70.0 Atherosclerosis of aorta; E03.9 Hypothyroidism, unspecified; E11.9 Type 2 diabetes mellitus without complications; R13.10 Dysphagia, unspecified; Z93.1 Gastrostomy status; Z66 Do not resuscitate; Z79.01 Long term (current) use of anticoagulants; Z79.4 Long term (current) use of insulin; Z85.028 Personal history of other malignant neoplasm of stomach; Z90.3 Acquired absence of stomach [part of]; Z86.718 Personal history of other venous thrombosis and embolism; I69.298 Other sequelae of other nontraumatic intracranial hemorrhage; B96.89 Other specified bacterial agents as the cause of diseases classified elsewhere; S90.32XA Contusion of left foot, initial encounter; S90.31XA Contusion of right foot, initial encounter; S90.01XA Contusion of right ankle, initial encounter; X58.XXXA Exposure to other specified factors, initial encounter; Y93.9 Activity, unspecified; Y92.129 Unspecified place in nursing home as the place of occurrence of the external cause
CPT/HCPCS: 36415; 71045-TC; 74018; 76604-TC; 80048-TC; 80053-TC; 80076-TC; 80202-TC; 81001; 83605-TC; 83735-TC; 84100-TC; 84484-TC; 85025-TC; 85730-TC; 87040-TC; 87081-TC; 87086-TC; 93971-TC; 94799-TC; A4216; A4217; A6253; A6403; C9803; G0378; J0456; J0692; J0696; J1450; J1644; J1815; J1940; J1953; J2405; J3370; J3480; J3490; J7050; J7060; P9047